=== PATIENT | female | born 1935 | race Caucasian/White ===

== ENCOUNTER → 2016-05-27 | Day surgery (SDC) | payer BC ==
[2016-05-14 15:28] VITALS: Ht 154.9 cm; Wt 79.5 kg
[~2016-05-27] VITALS: Ht 154.9 cm; Wt 79.5 kg
[~2016-05-27] MED LIST: 500ML BSS 0.3ML EPI 1:1000PF IRRIG ONE; ACETAMINOPHEN 325 MG TAB PO PRN; AMVISC PLUS 0.8ML SYRINGE INT OCU ONE; ATROPINE SULFATE 0.1 MG/ML 5ML SYR IV PRN; BSS FLUSH ONE; CLTP PO; ENDOCOAT 0.85ML SYRINGE INT OCU ONE; ESCI10TA17 PO; EpHEDrine SULFATE INJ 50 MG/ML AMP IV PRN; EpINEphrine INJ 1MG/ML AMP 1 MG/ML AMP ONE; LACTATED RINGER'S 1000ML 500 ML IV SCH; LIDOCAINE 4% OP SOLN DROP CHARGE ONE; LIDOCAINE 4% OP SOLN DROP CHARGE OPR SCH; LIDOCAINE HCL 1% MPF 2 ML VIAL ONE; MIDAZOLAM HCL 1 MG/ML 2ML VIAL ONE; MIX: 4ML BSS 1ML EPI 1:1000 PF TOP ONE; MOXIFLOXACIN OPH SOLN PER DROP CHARGE ONE; POVIDONE-IODINE OP SOLN 30 ML BTL ONE; PROPARACAINE 0.5% OP SOLN PER DROP CHARGE OPR SCH; TOBRAMYCIN/DEXAMETHASONE OPH OINT PER APPLN CHARGE ONE
--- NOTE | 2016-05-27 06:40 | History & Physical Bridge - SC ---
H&P Re-Evaluation Bridge Note: I have examined the patient, reviewed the History & Physical and in the interval since the performance of the History & Physical I have noted the following changes of clinical significance: No changes noted
[2016-05-27] MEDS: PHENYLEPHRINE HCL 2.5% OP SOLN PER DROP CHARGE OPR SCH ×3 (07:03→07:13)
[2016-05-27] MEDS: TROPICAMIDE 1% OP SOLN PER DROP CHARGE OPR SCH ×3 (07:04→07:14)
[2016-05-27] MEDS: CYCLOPENTOLATE HCL 1% OP SOLN PER DROP CHARGE OPR SCH ×3 (07:05→07:15)
[2016-05-27] MEDS: MOXIFLOXACIN OPH SOLN PER DROP CHARGE OPR SCH ×3 (07:06→07:16)
--- NOTE | 2016-05-27 08:32 | [facility] Post Operative Brief Note ---
Immediate Operative Summary Operative Date May 27, 2016. Pre-Operative Diagnosis Right Eye Cataract Post-Operative Diagnosis Same Procedure(s) Performed Right Cataract Phacoemulsification With Intraocular Lens Implant Surgeon Dr Yi Corn Detasseler Machine Operator Surgeon(s) None Estimated Blood Loss 0ml Findings right cataract Specimens None Complication(s) None Disposition
--- NOTE | 2016-05-27 08:33 | [facility] Operative Report ---
Operative Report Phaco with monofocal IOL DATE OF OPERATION: 05/27/16 PREOPERATIVE DIAGNOSIS: Senile nuclear cataract, right eye POSTOPERATIVE DIAGNOSIS: Senile nuclear cataract, right eye PROCEDURE PERFORMED: Phacoemulsification with intraocular lens implantation, right eye SURGEON: Dr. Lucas Yi ANESTHESIA: Topical with 1% intracameral lidocaine and monitored anesthesia care COMPLICATIONS: None DESCRIPTION OF PROCEDURE: After positively identifying the patient both verbally and by wristband in the preoperative area, the right eye was marked as the operative eye. The patient was then brought back to the operating room by the anesthesia and nursing staff where they were given a drop of Lidocaine and betadine into the operative eye. They were then sterilely prepped and draped in the standard fashion typical for ophthalmic surgery. Steri-strips were placed along the upper eyelids to keep the lashes back, and a lid speculum was placed into the operative eye. At this point, a documented time out was performed with members of the ophthalmology, nursing, and anesthesia staffs all agreeing upon the correct patient, correct location for surgery, correct procedure, and correct type and power of intraocular lens to be implanted. The microscope was then swung into position. First, a paracentesis wound was made using a sideport blade. Then, in sequence, 1% preservative-free lidocaine followed by Endocoat viscoelastic was injected into the anterior chamber. Next , the main incision was made with a keratome blade in triplanar fashion. A sharp cystotome was introduced into the eye and used to create a tear in the anterior capsule, which was directed into a continuous curvilinear capsulorrhexis using Utrata forceps. Hydrodissection was then performed with BSS on a flat-tip cannula. Next, the phacoemulsification handpiece was introduced into the eye and used to remove the nucleus in a iokrwm-ryh-kbuameo fashion. This was done without complication and then the irrigation-aspiration handpiece was introduced into the eye and used to remove all remaining cortical and epinuclear material. Amvisc was then injected into the anterior chamber as well as into the capsular bag and using the lens injector system, an MX60 20.5 D lens, serial number [id number], and expiration date 12/2018 was injected into the capsular bag and rotated into the correct position. Next, the irrigation- aspiration handpiece was used to remove all remaining Amvisc. BSS was used to hydrate the main wound, and then BSS was injected into the paracentesis site to reach physiologic pressure and then the main wound was checked and found to be watertight. The patient was given drops of Vigamox and Tobradex ointment into the operative eye, and then the surrounding area was cleaned and dried. A clear plastic shield was placed over the eye and the patient was then sat up and taken from the operating room by the anesthesia staff having tolerated the procedure well and suffering no complications. DISPOSITION: The patient was returned to the recovery room in stable condition. I attest to the content of the Intraoperative Record and any orders documented therein. Any exceptions are noted below.
--- NOTE | 2016-05-27 08:34 | Discharge Instructions-SurgCtr ---
Discharge Instructions Visit Reason for Visit: Cataract Right Eye Discharge Discharge Diagnosis / Problem: right cataract Discharge Goals Goal(s): Decrease discomfort, Improve function Activity Recommendations Activity Limitations: as noted below Anesthesia . Post Anesthesia Instructions: If you have had General Anesthesia or IV Sedation: * Do not drive today. * Resume driving when surgeon permits. * Do not make important decisions or sign legal documents today. * Call surgeon for: 1. Temperature elevations greater than 101 degrees F. 2. Uncontrollable pain. 3. Excessive bleeding. 4. Persistent nausea and vomiting. 5. Medication intolerance (nausea, vomiting or rash). * For nausea and vomiting use only clear liquids such as: tea, soda, bouillon until nausea subsides, then gradually increase diet as tolerated. * If you have any concerns or questions, call your surgeon's office. If physician is unavailable and it is an emergency, call 911 or go to the nearest emergency room. . Instructions / Follow-Up Instructions / Follow-Up ACTIVITY RECOMMENDATIONS: * Light activities. * You may walk outside, read, watch television. * You may notice redness on the white part of the eye and some blurry vision - this is normal. MEDICATIONS: Resume previous medications unless instructed otherwise by your surgeon. Start all eye drops at 10:30 am today: * Eye drops (today): Prednisone - one drop in operative eye every 2 hours while awake Ofloxacin - one drop in operative eye every 2 hours while awake SPECIAL CARE INSTRUCTIONS: * Tape plastic shield over eye to sleep at night. Call your doctor at with any concerns or problems. FOLLOW UP VISIT: Follow-up with Dr Yi at [facility] as scheduled. Diet Recommendations Home Diet: no limitations Procedures Procedures Performed: Right Cataract Phacoemulsification With Intraocular Lens Implant Pending Studies Studies pending at discharge: no Medical Emergencies . Who to Call and When: Medical Emergencies: If at any time you feel your situation is an emergency, please call 911 immediately. . Non-Emergent Contact Non-Emergency issues call your: Surgeon . . "Provider Documentation" section prepared by Lucas Yi.
--- NOTE | 2016-05-27 08:40 | Anesthesia Progress Nt - [facility] ---
Anesthesia Post Op Note Date & Time May 27, 2016 at 08:39 Vital Signs Pain Intensity: 0 Vital Signs Past 12 Hours Date Time Temp Pulse Resp B/P Pulse Ox O2 Delivery O2 Flow Rate FiO2 05/27/16 08:35 36.9 60 16 167/84 98 Room Air 05/27/16 06:59 36.5 74 16 133/84 94 Room Air Notes Mental Status: alert / awake / arousable, participated in evaluation Pt Amnestic to Procedure: Yes Nausea / Vomiting: adequately controlled Pain: adequately controlled Airway Patency, RR, SpO2: stable & adequate BP & HR: stable & adequate Hydration State: stable & adequate Anesthetic Complications: no major complications apparent
[2016-05-27 08:49] VITALS: BP 152/80; PULSE 61; O2SAT 97
== END | disposition home or self-care (01) ==
LOC: X.SURG 06:20
PROVIDERS: ATTEND Ophthalmology
DX: H25.11 Age-related nuclear cataract, right eye (principal); Z98.42 Cataract extraction status, left eye; H04.129 Dry eye syndrome of unspecified lacrimal gland; H01.029 Squamous blepharitis unspecified eye, unspecified eyelid; E78.5 Hyperlipidemia, unspecified; E78.00 Pure hypercholesterolemia, unspecified; Z98.890 Other specified postprocedural states; Z90.710 Acquired absence of both cervix and uterus

== ENCOUNTER → 2016-09-08 | Outpatient (CLI) | payer BC ==
[~2016-09-08] MED LIST changes: -500ML BSS 0.3ML EPI 1:1000PF IRRIG ONE; -ACETAMINOPHEN 325 MG TAB PO PRN; -AMVISC PLUS 0.8ML SYRINGE INT OCU ONE; -ATROPINE SULFATE 0.1 MG/ML 5ML SYR IV PRN; -BSS FLUSH ONE; -ENDOCOAT 0.85ML SYRINGE INT OCU ONE; -EpHEDrine SULFATE INJ 50 MG/ML AMP IV PRN; -EpINEphrine INJ 1MG/ML AMP 1 MG/ML AMP ONE; -LACTATED RINGER'S 1000ML 500 ML IV SCH; -LIDOCAINE 4% OP SOLN DROP CHARGE ONE; -LIDOCAINE 4% OP SOLN DROP CHARGE OPR SCH; -LIDOCAINE HCL 1% MPF 2 ML VIAL ONE; -MIDAZOLAM HCL 1 MG/ML 2ML VIAL ONE; -MIX: 4ML BSS 1ML EPI 1:1000 PF TOP ONE; -MOXIFLOXACIN OPH SOLN PER DROP CHARGE ONE; -POVIDONE-IODINE OP SOLN 30 ML BTL ONE; -PROPARACAINE 0.5% OP SOLN PER DROP CHARGE OPR SCH; -TOBRAMYCIN/DEXAMETHASONE OPH OINT PER APPLN CHARGE ONE
--- NOTE | 2016-09-08 16:30 | MAMMOGRAPHY REPORT ---
BILATERAL DIGITAL SCREENING MAMMOGRAM WITH CAD: 09/08/2016 CLINICAL HISTORY: Routine screening examination. TECHNIQUE: Bilateral CC and MLO views were obtained. Current study was also evaluated with a Comput er Aided Detection (CAD) system. COMPARISON: Comparison is made to exams dated: 08/15/2015 mammogram, 08/02/2014 mammogram, 06/02/2013 mammogram, 04/21/2012 mammogram, 04/02/2011 mammogram, and 03/18/2009 mammogram - [facility]. BREAST COMPOSITION: There are scattered areas of fibroglandular density in both breasts. FINDINGS: There are mild vascular calcifications and scattered benign coarse and punctate microcalc ifications in the breasts. No new suspicious mass, architectural distortion or cluster of microcalc ifications is seen. IMPRESSION: ACR BI-RADS CATEGORY 1: NEGATIVE There is no mammographic evidence of malignancy. A 1 year screening mammogram is recommended. The p atient will receive written notification of the results. Approximately 10% of breast cancers are not detected with mammography. A negative mammographic repor t should not delay biopsy if a clinically suggestive mass is present. Natasha Sanchez M.D. ay/:09/08/2016 16:03:33 Center Specialists: Kalie PAL(Michelle)(Susan), [facility] letter sent: Normal 1/2 BI-RADS Code: ACR BI-RADS Category 1: Negative
== END | disposition home or self-care (01) ==
LOC: C.MAMM 10:38
PROVIDERS: ATTEND Internal Medicine
DX: Z12.31 Encounter for screening mammogram for malignant neoplasm of breast (principal)

== ENCOUNTER → 2017-03-08 | Outpatient (CLI) | payer BC ==
[2017-03-08 12:17] LABS: BASO % 0.4 %; BASO ABS # 0.03 K/uL (0-0.2); COMPLETE YES; EOS % 0.7 %; HEMATOCRIT 43.5 % (37-47); IG% 0.1 %; LYMPH % 25.2 %; LYMPH ABS # 1.76 K/uL (1.2-3.4); MEAN CELL VOLUME 88.1 fL (80-100); MEAN CORPUSCULAR HEMOGLOBIN 29.1 pg (25-34); MEAN CORPUSCULAR HGB CONC 33.1 g/dl (32-36); MEAN PLATELET VOLUME 10.1 fL (7.4-10.4); NEUT % 65.6 %; PLATELET COUNT 201 K/uL (130-400); RED BLOOD COUNT 4.94 M/uL (4.2-5.4); WHITE BLOOD COUNT 6.99 K/uL (4.8-10.8)
[2017-03-08 12:42] LABS: ESTIMATED AVERAGE GLUCOSE 114 mg/dl; HA1C FLAG Normal (Normal)
[2017-03-08 13:28] LABS: ALT/SGPT 20 U/L (12-78); AST/SGOT 16 U/L (15-37); BLOOD UREA NITROGEN 18 mg/dl (7-18); BUN/CREATININE RATIO 18.5 (10-20); CALCIUM 8.4 mg/dl (8.5-10.1); CARBON DIOXIDE 29 mmol/L (21-32); CHLORIDE 106 mmol/L (98-107); CREATININE 0.98 mg/dl (0.60-1.20); GLUCOSE 76 mg/dl (70-99); SODIUM 142 mmol/L (136-145)
[2017-03-08 13:41] LABS: ALB/GLOB RATIO 0.8 (0.9-2); ALKALINE PHOSPHATASE 71 U/L (45-117); CHOLESTEROL 271 mg/dl (0-200); CHOLESTEROL/HDL RATIO 4.3; HDL CHOLESTEROL 63 mg/dl; LDL CHOLESTEROL CALCULATED 172 mg/dl; TRIGLYCERIDES 182 mg/dl (0-150); VERY LOW DENSITY LIPOPROT CALC 36 mg/dl
== END | disposition home or self-care (01) ==
LOC: C.LABBFT 09:43
PROVIDERS: ATTEND Internal Medicine
DX: R73.03 Prediabetes (principal); M81.0 Age-related osteoporosis without current pathological fracture; E78.00 Pure hypercholesterolemia, unspecified

== ENCOUNTER → 2017-03-09 | Outpatient (CLI) | payer BC ==
[2017-03-09 12:31] LABS: URINE APPEARANCE CLEAR (CLEAR); URINE BILIRUBIN NEG (NEG); URINE COLOR YELLOW; URINE NITRITE POS (NEG); URINE SPECIFIC GRAVITY 1.017 (1.000-1.030); UROBILINOGEN NEG (NEG); ZZUR CULT IF INDIC CLEAN CATCH YES
[2017-03-09 12:37] LABS: MANUAL MICROSCOPIC REQUIRED? NO; REVIEW REQ? NO
== END | disposition home or self-care (01) ==
LOC: C.LABBFT 10:48
PROVIDERS: ATTEND Internal Medicine
DX: R73.03 Prediabetes (principal); M81.0 Age-related osteoporosis without current pathological fracture; E78.00 Pure hypercholesterolemia, unspecified

== ENCOUNTER → 2017-06-25 | Outpatient (CLI) | payer BC | END | disposition home or self-care (01) | LOC: C.LABBFT 15:29 | PROVIDERS: ATTEND Physician Assistant Medical | DX: R39.9 Unspecified symptoms and signs involving the genitourinary system (principal) ==

== ENCOUNTER 2017-12-29 12:30 | Emergency (ER) | payer BC ==
[~2017-12-29] VITALS: Ht 156.2 cm; Wt 79.1 kg
[2017-12-29 12:48] VITALS: TEMP 36.6; Ht 156.2 cm; Wt 79.1 kg
[2017-12-29] MEDS ORDERED: LIDODERM (LIDOCAINE) PATCH 5% TD STA (13:05)
--- NOTE | 2017-12-29 13:49 | EMERGENCY ROOM VISIT NOTE ---
ED Visit Note First contact with patient: 12:53 CHIEF COMPLAINT: Low back pain, head injury, fall HISTORY OF PRESENT ILLNESS: This 82-year-old female patient presents to the emergency department, ambulatory, complaining of pain in the low back which began yesterday after suffering a mechanical fall. The patient states she tripped over her shoe, falling backwards and striking the back of her head, landing on her buttocks. The patient denies any loss of consciousness. She does report 2 episodes of emesis, one immediately after and 1 several hours later. The patient has been taking Tylenol for pain without significant relief. The pain has been constant and worse with movement. She does also report a headache and "my head feels funny". The patient notes the pain as sharp, radiating into her groin, and a 6/10. The patient denies any loss of control of their bowel or bladder functions. There has been no leg numbness or weakness, and no change in sensation. No nausea or vomiting or abdominal pain. No chest pain or shortness of breath. The patient has not had prior back injuries. No dysuria or increased urinary frequency. The patient is not on any blood thinners. REVIEW OF SYSTEMS: A 10 system review of systems was performed with positives and pertinent negatives listed in the history of present illness. All other systems were reviewed and are negative. ALLERGIES: Statins MEDICATIONS: Lexapro, stool softener PMH: Anxiety, depression SOCIAL HISTORY: Patient lives locally with family. She denies drug, alcohol , tobacco use. PHYSICAL EXAM: VITALS: Vitals are noted on the nurse's note and reviewed by myself. Vital signs stable. GENERAL: This is an 82-year-old white female, in no acute distress, nondiaphoretic, well-developed well-nourished. HEAD: Normocephalic, atraumatic. There is tenderness in the posterior aspect of the head. No obvious contusion or abrasion noted. EYES: Pupils are equal round and reactive to light and accommodation. EOMs are full and optic discs and fundi are normal. There is no swelling or discoloration of the tissue surrounding the eyes. EARS: External auditory canals clear without blood. Negative jain sign. NOSE: Patent without tenderness. No septal hematoma. FACE: No facial tenderness. SKIN: The skin was without rashes, erythema, edema, or bruising. Capillary refill less than 2 seconds. NECK: Supple without nuchal rigidity. Mild cervical spine tenderness. No paraspinous muscle tenderness. HEART: Regular rate and rhythm without murmurs gallops or rubs. LUNGS: Clear to auscultation bilaterally without wheezes, rales or rhonchi. ABDOMEN: Positive bowel sounds x 4. Normal tympanic percussion. Soft, nontender, without masses or organomegaly. Duarte sign negative. MUSCULOSKELETAL: No muscle atrophy, erythema, or edema noted of the back. There is no tenderness over the lumbar spinous processes. There is moderate tenderness over the paraspinous muscles bilaterally. There is no tenderness over the thoracic spine or paraspinous muscles. There are no muscle spasms present. The patient is slow to move around with maximum tenderness with sitting from a lying position. Negative bilateral straight leg raise test. NEURO: Patient was alert and oriented to person place and time. Normal sensation to light and sharp touch. Deep tendon reflexes 2+ in the lower extremities. Dorsalis pedis pulse 2+ bilaterally. Strength 5/5 and equal in the bilateral lower extremities. Normal Mini-Mental Status exam. RADIOLOGY: CT OF THE HEAD WITHOUT CONTRAST CLINICAL HISTORY: Headache. Fall. Vomiting. COMPARISON STUDY: MRI of the brain July 25, 2015. CT DOSE: 976.70 mGy.cm TECHNIQUE: Helical axial images of the head were obtained without IV contrast. Automated exposure control was utilized for the study. A dose lowering technique was utilized adhering to the principles of ALARA. FINDINGS: No acute intracranial hemorrhage, midline shift or mass effect is present. Ventricular system is stable. The basilar cisterns are patent. There are no extra-axial collections. Rain-white differentiation is preserved. There are no findings to suggest acute dural sinus thrombosis or acute territorial infarct. There is no calvarial fracture. Visualized portions of the sinuses and mastoid air cells are clear. IMPRESSION: 1. No acute intracranial findings. 2. No calvarial fracture. Electronically signed by: Tho Clifford M.D. 12/29/2017 1:51 PM Dictated Date/Time: 12/29/2017 1:48 PM CERVICAL SPINE W/O CLINICAL HISTORY: 82 years-old Female presenting with neck pain, fall. TECHNIQUE: Multidetector CT of the cervical spine was performed without the use of intravenous contrast. IV contrast: None. A dose lowering technique was used consistent with the principles of ALARA (as low as reasonably achievable). COMPARISON: None. CT DOSE (mGy.cm): The estimated cumulative dose is 976.70. FINDINGS: Residential Advisor topogram: Unremarkable. Straightening of normal cervical lordosis likely positional. Vertebral bodies maintain normal height and alignment otherwise. No scoliosis. Intervertebral disc height loss noted at several levels though most significantly at C5-6. Disc osteophyte complex most notable at C5-6 with mild posterior bony spurring resulting in mild osseous spinal canal narrowing. Bilateral osseous neural foraminal narrowing at C5-6. No significant facet arthropathy. No acute fracture or subluxation. Paraspinal musculature within normal limits. Remaining soft tissues demonstrate atherosclerosis. Lung apices clear. IMPRESSION: 1. No acute osseous injury of the cervical spine. 2. Degenerative changes focally at C5-6 with osseous neural foraminal narrowing. Electronically signed by: Norberto Tidwell M.D. 12/29/2017 1:58 PM Dictated Date/Time: 12/29/2017 1:54 PM L-SPINE MIN 4 VIEWS ROUTINE CLINICAL HISTORY: 82 years-old Female presenting with low back pain, fall. TECHNIQUE: Frontal, bilateral oblique, lateral, and coned in lateral views of lumbar spine were obtained. COMPARISON: CT chest from 2009. FINDINGS: Cholecystectomy clips noted. Moderate stool burden primarily in the right and transverse colon. Mottled lucencies in the left upper quadrant may either be colonic or gastric in origin. Atherosclerosis. Osteopenia suggested. Mild scoliotic curvature of the thoracolumbar spine. Vertebral body height loss evident at L1, which is worse anteriorly (approximately 25% height loss). No radiographic evidence of retropulsion of the posterior cortex of the L1 vertebral body. Endplate concavity is also evident in the lower thoracic spine likely indicating osteoporotic deformities. Remaining lumbar vertebral bodies preserved in height. Intervertebral disc height loss at L5-S1, where there is likely vacuum disc phenomenon. Mild osteophytosis noted at several levels. No radiographic evidence of osseous neural foraminal narrowing. No significant facet arthropathy. No pars defect. IMPRESSION: 1. 25% anterior vertebral body height loss of L1 consistent with mild compression deformity. Correlate for point tenderness as this represents an age-indeterminate compression fracture. This was not present on the prior CT from 2009. 2. Osteoporosis and osteopenia suspected. 3. Mild multilevel degenerative change. Electronically signed by: Norberto Tidwell M.D. 12/29/2017 2:04 PM Dictated Date/Time: 12/29/2017 2:00 PM EMERGENCY DEPARTMENT COURSE: The patient was seen and evaluated as above. Imaging performed and reviewed by myself and radiologist as above. The patient is not tender over the L1 vertebrae, however I discussed this finding on x-ray with the patient. I did recommend she follow-up with a local orthopedic spine surgeon for further evaluation, especially if she continues to experience significant discomfort in her low back. The patient was given strict return precautions. She was medicated here in the emergency department with a Lidoderm patch and did report improvement in her symptoms. She will be prescribed Lidoderm patches and Voltaren gel to be used at home for breakthrough pain. The patient verbalized agreement and understanding. She was encouraged to follow-up closely with her PCP. All questions answered patient satisfaction prior to discharge. Discharge instructions reviewed, patient was discharged home in good condition. I attest that I have personally reviewed the patient's current medication list. Patient was found to have normal blood pressure on screening and does not require follow-up. Etiologies such as lumbago, sciatica, cauda equina, epidural abscess, osteomyelitis, fracture, aortic disease, metastatic disease, infection, renal colic, gastrointestinal, closed head injury, concussion, intracranial hemorrhage , skull fracture, contusion, headache, infection, malignancy, and others. DIAGNOSIS: Fall, closed head injury, compression fracture of L1 The chart was completed utilizing [employer] Speech voice recognition software. Grammatical errors, random word insertions, pronoun errors, and incomplete sentences are an occasional consequence of this system due to software limitations, ambient noise, and hardware issues. Any formal questions or concerns about the content, text, or information contained within the body of this dictation should be directly addressed to the provider for clarification. Current/Historical Medications Scheduled Calcium/Vitamin D (Caltrate 600 Plus *), 1 TAB PO QAM Escitalopram (Lexapro), 10 MG PO QAM Scheduled PRN Diclofenac Sodium (Topical) (Voltaren 1% Top Gel), 1 DOSE TD QID PRN for Pain Lidocaine (Lidocaine), 1 PATCH TD QD PRN for Pain Allergies Coded Allergies: Statins (Verified Allergy, Unknown, LEG PAINS, 05/27/16) Vital Signs Date Time Temp Pulse Resp B/P (MAP) Pulse Ox O2 Delivery O2 Flow Rate FiO2 8/8/18 14:21 66 16 133/72 96 Room Air 12/29/17 12:48 36.6 79 20 112/68 95 Room Air Medications Administered Medications (Trade) Dose Ordered Sig/Fozia Route Start Time Stop Time Status Last Admin Dose Admin Lidocaine (Lidoderm Patch 5%) 1 patch NOW STAT TD 12/29/17 13:05 12/29/17 13:07 DC 12/29/17 13:32 1 PATCH Departure Information Impression Primary Impression: Fall Additional Impressions: Closed head injury Compression fracture of L1 lumbar vertebra Dispostion Home / Self-Care Condition GOOD Prescriptions Diclofenac Sodium (Topical) (VOLTAREN 1% TOP GEL) 1 % Gel 1 DOSE TD QID Y for Pain, #1 TUBE Prov: Ella Mariscal PA-C 12/29/17 Lidocaine (LIDOCAINE) 5 % Pad 1 PATCH TD QD Y for Pain, #30 PATCH Remove patch after 12 hours. New patch may be applied 12 hours later. No more than 1 patch in 24 hours. Prov: Ella Mariscal PA-C 12/29/17 Referrals Amadeo Tejada M.D. (PCP) Davis Pappas, DO Patient Instructions ED Head Injury Closed, ED Low Back Pain Injury, ED Mechanical Fall, [facility] Additional Instructions You have been treated in the Emergency Department for a Closed Head Injury and low back pain. X-ray of the low back did show a compression fracture at L1. This is thought to be more chronic, as you are not experiencing tenderness in that area. Please follow-up with your primary care provider and consider orthopedics referral if no improvement in symptoms. CT Scan of your head/brain demonstrated no acute bleeding or other abnormalities. This does not completely rule out the risk for future damage to the brain. You were given a prescription for Lidoderm patches. Remove patch after 12 hours. New patch may be applied 12 hours later. No more than 1 patch in 24 hours. You were also given a prescription for Voltaren gel. Please do not apply the gel below the patch, however you may use it in the surrounding areas. For pain control, you can use the following xbjc-jki-[id number] medicines (if >12 yo): Acetaminophen(Tylenol) may be used for fever or pain. Use 1000mg every six hours as needed. Avoid using more than 3000mg in a 24 hour period. You should relax in a quiet, dark place for the rest of the day. Avoid any possible triggers including: cigarette smoke, caffeine, nicotine, chocolate, wine, beer, loud noises or music, or bright lights. You should schedule a follow-up appointment in 2-3 days with your Primary Care Provider for further evaluation and treatment of your Headache. Return to the Emergency Department if your current symptoms worsen despite treatment course outlined above, or if you develop any of the following symptoms : intractable pain despite aforementioned treatment course, visual disturbances , loss of vision, unilateral weakness or facial drooping, slurring of speech, loss of coordination, or loss of consciousness. Problem Qualifiers Primary Impression: Fall Encounter type: initial encounter Qualified Codes: W19.XXXA - Unspecified fall, initial encounter Additional Impressions: Closed head injury Encounter type: initial encounter Qualified Codes: S09.90XA - Unspecified injury of head, initial encounter Compression fracture of L1 lumbar vertebra Encounter type: initial encounter Fracture type: closed Qualified Codes: S32.010A - Wedge compression fracture of first lumbar vertebra, initial encounter for closed fracture
--- NOTE | 2017-12-29 13:53 | DIAGNOSTIC IMAGING REPORT ---
CT OF THE HEAD WITHOUT CONTRAST CLINICAL HISTORY: Headache. Fall. Vomiting. COMPARISON STUDY: MRI of the brain July 25, 2015. CT DOSE: 976.70 mGy.cm TECHNIQUE: Helical axial images of the head were obtained without IV contrast. Automated exposure control was utilized for the study. A dose lowering technique was utilized adhering to the principles of ALARA. FINDINGS: No acute intracranial hemorrhage, midline shift or mass effect is present. Ventricular system is stable. The basilar cisterns are patent. There are no extra-axial collections. Rain-white differentiation is preserved. There are no findings to suggest acute dural sinus thrombosis or acute territorial infarct. There is no calvarial fracture. Visualized portions of the sinuses and mastoid air cells are clear. IMPRESSION: 1. No acute intracranial findings. 2. No calvarial fracture. Electronically signed by: Tho Clifford M.D. 12/29/2017 1:51 PM Dictated Date/Time: 12/29/2017 1:48 PM
--- NOTE | 2017-12-29 13:59 | DIAGNOSTIC IMAGING REPORT ---
CERVICAL SPINE W/O CLINICAL HISTORY: 82 years-old Female presenting with neck pain, fall. TECHNIQUE: Multidetector CT of the cervical spine was performed without the use of intravenous contrast. IV contrast: None. A dose lowering technique was used consistent with the principles of ALARA (as low as reasonably achievable). COMPARISON: None. CT DOSE (mGy.cm): The estimated cumulative dose is 976.70. FINDINGS: Meal Packer topogram: Unremarkable. Straightening of normal cervical lordosis likely positional. Vertebral bodies maintain normal height and alignment otherwise. No scoliosis. Intervertebral disc height loss noted at several levels though most significantly at C5-6. Disc osteophyte complex most notable at C5-6 with mild posterior bony spurring resulting in mild osseous spinal canal narrowing. Bilateral osseous neural foraminal narrowing at C5-6. No significant facet arthropathy. No acute fracture or subluxation. Paraspinal musculature within normal limits. Remaining soft tissues demonstrate atherosclerosis. Lung apices clear. IMPRESSION: 1. No acute osseous injury of the cervical spine. 2. Degenerative changes focally at C5-6 with osseous neural foraminal narrowing. Electronically signed by: Norberto Tidwell M.D. 12/29/2017 1:58 PM Dictated Date/Time: 12/29/2017 1:54 PM
--- NOTE | 2017-12-29 14:05 | DIAGNOSTIC IMAGING REPORT ---
L-SPINE MIN 4 VIEWS ROUTINE CLINICAL HISTORY: 82 years-old Female presenting with low back pain, fall. TECHNIQUE: Frontal, bilateral oblique, lateral, and coned in lateral views of lumbar spine were obtained. COMPARISON: CT chest from 2010. FINDINGS: Cholecystectomy clips noted. Moderate stool burden primarily in the right and transverse colon. Mottled lucencies in the left upper quadrant may either be colonic or gastric in origin. Atherosclerosis. Osteopenia suggested. Mild scoliotic curvature of the thoracolumbar spine. Vertebral body height loss evident at L1, which is worse anteriorly (approximately 25% height loss). No radiographic evidence of retropulsion of the posterior cortex of the L1 vertebral body. Endplate concavity is also evident in the lower thoracic spine likely indicating osteoporotic deformities. Remaining lumbar vertebral bodies preserved in height. Intervertebral disc height loss at L5-S1, where there is likely vacuum disc phenomenon. Mild osteophytosis noted at several levels. No radiographic evidence of osseous neural foraminal narrowing. No significant facet arthropathy. No pars defect. IMPRESSION: 1. 25% anterior vertebral body height loss of L1 consistent with mild compression deformity. Correlate for point tenderness as this represents an age-indeterminate compression fracture. This was not present on the prior CT from 2009. 2. Osteoporosis and osteopenia suspected. 3. Mild multilevel degenerative change. Electronically signed by: Norberto Tidwell M.D. 12/29/2017 2:04 PM Dictated Date/Time: 12/29/2017 2:00 PM
[2017-12-29 14:21] VITALS: BP 133/72; PULSE 66; O2SAT 96
[2017-12-29] MEDS ORDERED: LIDO1PAD2 TD (14:33)
[2017-12-29] MEDS ORDERED: DICL1GEL12 TD (14:33)
--- NOTE | 2017-12-29 17:46 | EMERGENCY ROOM VISIT NOTE ---
ED Visit Note First contact with patient: 12:53 I have personally evaluated this patient examined her and reviewed the pertinent labs and data. I have discussed the case with Ella Mariscal, the physician chemical laboratory assistant and agree with the plan. Please refer to the PA note. This patient suffered a mechanical fall yesterday she hit her head and also has low back pain into her sacrum. On my exam, she has no neurologic deficits and her abdomen is benign. CAT scan of her head and neck were unremarkable. Lumbar films show an age-indeterminate L1 fracture. she seems to have no significant tenderness in this area. She will be sent home with pain medications and follow-up with her regular doctor.
== END 2017-12-29 14:48 | disposition home or self-care (01) ==
LOC: C.EDB 12:32 → C.EDD 14:48
DX: S09.8XXA Other specified injuries of head, initial encounter (principal); S32.010A Wedge compression fracture of first lumbar vertebra, initial encounter for closed fracture; W18.09XA Striking against other object with subsequent fall, initial encounter; F32.9 Major depressive disorder, single episode, unspecified; F41.9 Anxiety disorder, unspecified; Z79.899 Other long term (current) drug therapy

== ENCOUNTER 2017-12-31 23:56 | Emergency (ER) | payer BC ==
[~2017-12-31] VITALS: Ht 154.9 cm; Wt 79.5 kg
[~2017-12-31 23:56] MED LIST changes: +DICL1GEL12 TD; +LIDO1PAD2 TD
[2018-01-01] VITALS: TEMP 36.7; Ht 154.9 cm; Wt 79.5 kg
--- NOTE | 2018-01-01 00:13 | EMERGENCY ROOM VISIT NOTE ---
History Report prepared by Gretel: Demario Diane Under the Supervision of: Dr. Jose Raul Pickens M.D. First contact with patient: 00:04 Chief Complaint: CONSTIPATION Stated Complaint: CANT GO TO THE BATHROOM History of Present Illness The patient is a 82 year old female who presents to the Emergency Room with complaints of constant constipation that began 5 days ago after a fall. Patient states after the fall she took 2 extra strength Tylenol for her lower back pain. She states this might be the reason for her symptoms as she has a history of constipation with pain medication. Patient states she has tried "2 enemas, stool softeners, Miralax, and 4 laxatives" without relief of her symptoms. She adds she has abdominal pain due to the constipation. Patient denies leg weakness , urinary symptoms, watery diarrhea, abdominal distension, nausea, vomiting, and history of bowel obstructions. Source of History: patient Onset: 5 days ago Position: abdomen Timing: constant Modifying Factors (Relieving): other (None) Associated Symptoms: + abdominal pain, No nausea, No vomiting, No diarrhea, No urinary symptoms, No weakness Review of Systems See HPI for pertinent positives & negatives. A total of 10 systems reviewed and were otherwise negative. Past Medical & Surgical Surgical Problems: (1) History of cholecystectomy Family History FHx: cancer FHx: gallbladder disease Social History Smoking Status: Never Smoker Alcohol Use: none Drug Use: none Marital Status: Housing Status: lives with significant other Occupation Status: retired Current/Historical Medications Scheduled Calcium Carbonate-Cholecalcife (Calcium 600 + D 600-200 mg-Unit), 1 TAB PO QAM Escitalopram (Lexapro), 10 MG PO QAM Peg [id number] Bicarb-Sod Ch (Golytely), 1 BTL PO DIRECTED Scheduled PRN Diclofenac Sodium (Topical) (Voltaren 1% Top Gel), 1 DOSE TD QID PRN for Pain Docusate Sodium (Stool Softener), 200 MG PO DAILY PRN for Constipation Lidocaine (Lidocaine), 1 PATCH TD QD PRN for Pain Polyethylene Glycol 3350 (Miralax), 17 GM PO DAILY PRN for Constipation Sodium Phosphates (Enema Disposable), 1 EA AR DAILY PRN for Constipation Allergies Coded Allergies: Statins (Verified Allergy, Unknown, LEG PAINS, 01/01/18) Physical Exam Vital Signs Date Time Temp Pulse Resp B/P (MAP) Pulse Ox O2 Delivery O2 Flow Rate FiO2 01/01/18 02:25 71 18 168/100 100 01/01/18 00:00 36.7 90 18 135/79 96 Room Air Physical Exam GENERAL: Patient is well appearing and in mild distress. EYES: No scleral icterus, unremarkable pupils. ENT: Mucous membranes moist, no nasal congestion. NECK: No masses appreciated, no meningismus, trachea is midline. RESPIRATORY: No dyspnea. Clear to auscultation and equal bilaterally. No wheeze , no rhonchi. CARDIOVASCULAR: Regular rate and rhythm. No murmurs, rubs, gallops appreciated. GASTROINTESTINAL: Abdomen soft, nontender, no peritonitis. Bowel sounds hyperactive. No masses appreciated. BACK: No midline tenderness, no CVA tenderness EXTREMITIES: Normal motion all extremities, no cyanosis, no edema. NEUROLOGIC: Alert and oriented, no acute motor or sensory deficits, no focal weakness, cranial nerves grossly intact. SKIN: No rash, no jaundice, no diaphoresis. Medical Decision & Procedures ER Provider Diagnostic Interpretation: Radiology results per my review and interpretation: KUB X-RAY: X-ray shows nonspecific bowel gas throughout entire abdomen, no evidence of obstruction, and modest amount of bowel in ascending and transverse colon. Medications Administered Medications (Trade) Dose Ordered Sig/Fozia Route Start Time Stop Time Status Last Admin Dose Admin Miscellaneous (Soap Suds Enema) 1 ea NOW STAT AR 01/01/18 01:09 01/01/18 01:10 DC 01/01/18 01:33 1 ED Course 0004: The patient was evaluated in room B8. A complete history and physical exam was performed. 0113: I reevaluated the patient. She is comfortable with having an enema. 0212: Reevaluated the patient. She states she is feeling better and would like to go home after having a modest bowel movement. Patient will take half a mag citrate now and other half later. She was informed to start GoLYTELY if no improvement of her symptoms. Discussed results and discharge instructions. She verbalized understanding and agreement. The patient is ready for discharge. Medical Decision Differential: Functional, Impaction, Obstruction, Volvulus, Ischemic Bowel, Infectious, Neurologic, Metabolic, amongst other pathologies entertained. Pleasant 82 yr old female with 4 days constipation. Notes she thinks its from using Tylenol. Did recently injury back though that is doing better, no other neuro deficits and she does not appear to have cauda equina. She has moderate stool burden on KUB. Enema with some relief and output. Will give Mag Citrate and if no improvement she can fill GoLytely. Reviewed symptoms requiring RTED. She has no abdominal pain nor other concerning symptoms. Medication Reconcilliation Current Medication List: was personally reviewed by me Blood Pressure Screening Patient's blood pressure: Elevated blood pressure Blood pressure disposition: Elevated BP felt to be situational Impression Primary Impression: Constipation Scribe Attestation The scribe's documentation has been prepared under my direction and personally reviewed by me in its entirety. I confirm that the note above accurately reflects all work, treatment, procedures, and medical decision making performed by me. Departure Information Dispostion Home / Self-Care Prescriptions Peg [id number] Bicarb-Sod Ch (GOLYTELY) 1 Jeanie Jeanie 1 BTL PO DIRECTED, #1 BTL Prov: Jose Raul Pickens M.D. 01/01/18 Referrals Amadeo Tejada M.D. (PCP) Patient Instructions ED Constipation, My [facility] [address]
[2018-01-01] MEDS ORDERED: SOAP SUDS ENEMA PR STA (01:09)
[2018-01-01] MEDS ORDERED: CALC-452 PO (01:10)
[2018-01-01] MEDS ORDERED: POLY335019 PO (01:12)
[2018-01-01] MEDS ORDERED: DOCU100T7 PO (01:12)
[2018-01-01] MEDS ORDERED: SODIENE12 PR (01:12)
[2018-01-01] MEDS ORDERED: PEGSOL8 PO (02:13)
[2018-01-01] MEDS ORDERED: MAGNESIUM CITRATE 296 ML/BTL PO ONE (02:15)
[2018-01-01 02:25] VITALS: BP 168/100; PULSE 71; O2SAT 100
--- NOTE | 2018-01-01 09:18 | DIAGNOSTIC IMAGING REPORT ---
KUB CLINICAL HISTORY: Constipation. FINDINGS: An AP supine abdominal radiograph is correlated with lumbar spine radiographs dated 01/08/2018. There is a nonobstructed abdominal bowel gas pattern noting moderate colonic fecal retention. No evidence of intraperitoneal free air is seen on this supine image. Cholecystectomy clips are identified in the right upper quadrant. Numerous phleboliths are present in the pelvis. The skeletal structures are osteopenic. Lumbosacral spondylosis and mild scoliosis are observed. The bony pelvis appears intact. IMPRESSION: Moderate colonic fecal retention. Electronically signed by: Ronny Shirley M.D. 01/01/2018 9:17 AM Dictated Date/Time: 01/01/2018 9:16 AM
== END 2018-01-01 02:20 | disposition home or self-care (01) ==
LOC: C.EDB 23:57
DX: K59.00 Constipation, unspecified (principal); Z79.899 Other long term (current) drug therapy; Z88.8 Allergy status to other drugs, medicaments and biological substances

== ENCOUNTER → 2018-01-05 | Outpatient (CLI) | payer BC ==
[~2018-01-05] MED LIST changes: +CALC-452 PO; -CLTP PO; +DOCU100T7 PO; +PEGSOL8 PO; +POLY335019 PO; +SODIENE12 PR
[2018-01-05 17:46] LABS: BASO % 0.5 %; BASO ABS # 0.05 K/uL (0-0.2); EOS % 1.4 %; EOS ABS # 0.14 K/uL (0-0.5); HEMATOCRIT 42.4 % (37-47); HEMOGLOBIN 13.7 g/dL (12.0-16.0); IG# 0.02 K/uL (0.00-0.02); LYMPH % 16.3 %; LYMPH ABS # 1.69 K/uL (1.2-3.4); MEAN CELL VOLUME 88.7 fL (80-100); MEAN CORPUSCULAR HEMOGLOBIN 28.7 pg (25-34); MEAN CORPUSCULAR HGB CONC 32.3 g/dl (32-36); MEAN PLATELET VOLUME 9.9 fL (7.4-10.4); MONO % 8.9 %; MONO ABS # 0.92 K/uL (0.11-0.59); NEUT % 72.7 %; NEUT ABS # 7.55 K/uL (1.4-6.5); PLATELET COUNT 203 K/uL (130-400); RED CELL DISTRIBUTION WIDTH CV 13.5 % (11.5-14.5); RED CELL DISTRIBUTION WIDTH SD 44.1 fL (36.4-46.3); WHITE BLOOD COUNT 10.37 K/uL (4.8-10.8)
[2018-01-05 18:17] LABS: BLOOD UREA NITROGEN 21 mg/dl (7-18); CALCIUM 8.9 mg/dl (8.5-10.1); CARBON DIOXIDE 29 mmol/L (21-32); CREATININE 1.05 mg/dl (0.60-1.20); GLUCOSE 95 mg/dl (70-99); POTASSIUM 4.2 mmol/L (3.5-5.1); SODIUM 137 mmol/L (136-145)
== END | disposition home or self-care (01) ==
LOC: C.LAB1850 16:42
PROVIDERS: ATTEND Nurse Practitioner Adult Health
DX: K59.00 Constipation, unspecified (principal)

== ENCOUNTER → 2018-01-06 | Outpatient (CLI) | payer BC | END | disposition home or self-care (01) | LOC: C.LABBFT 09:55 | PROVIDERS: ATTEND Nurse Practitioner Adult Health | DX: R10.9 Unspecified abdominal pain (principal) ==

== ENCOUNTER 2025-04-07 09:43 | Inpatient (IN) ==
--- NOTE | 2025-04-07 09:59 | Emergency Department Note ---
Impression & Plan Atrial fibrillation with RVR, Acute renal failure, Atrial fibrillation, new onset, Elevated troponin ED Provider Note NAME: CHARLES HARTMAN AGE: 89 SEX: F : 1935 ARRIVES VIA: Walk-In INFORMANT: Patient ED PROVIDER(S): Jakub Reyes MD CHIEF COMPLAINT: Dizziness, fall yesterday PLAN: Disposition: Admit MEDICAL DECISION MAKING: The patient is a pleasant 89-year-old woman with a past medical history of CKD, who presents to the emergency department via walk-in accompanied by her for evaluation of ongoing dizziness since yesterday when she had a fall due to the dizziness and hit the back of her head. She denies loss of consciousness. She was able to get up with her 's assistance. Despite ongoing dizziness the patient has been able to ambulate without pain in her hips or back. She denies any neck pain. She denies anticoagulation use. She is on daily low-dose aspirin. She reports recently being treated for bronchitis through her primary care provider with prednisone as well as a medication for cough. On my evaluation the patient is in no acute distress, afebrile with heart rate in the 140s-150s and atrial fibrillation with RVR and blood pressure 90s- 100s/60s. She appears clinically dry. 1 cm hematoma of the right posterior parietal scalp without bony crepitus. CTL-spine with no midline tenderness to palpation or step-offs. No distracting injury. Pelvis is stable and hips with full range of motion bilaterally. EKG demonstrates atrial fibrillation with RVR without overt acute ischemia. Chest x-ray negative for acute cardiopulmonary process per my preliminary independent interpretation. WBC 11K with neutrophilia but no left shift, nonspecific. H/H and platelets within normal limits. Chemistry without metabolic acidosis. Creatinine 1.2, with BUN/creatinine 23 increased from patient's baseline and consistent with patient's clinically dry appearance. Electrolytes otherwise unremarkable. Initial high-sensitivity troponin 405, nonspecific with repeat 420, mildly increased but in the setting of suspected prolonged RVR. Patient denies chest pain. Lipase is normal. TSH within normal limits. UA eventually obtained and demonstrates bacteria but negative nitrites and epithelial cells present. CT of the head and cervical spine negative for acute abnormalities. The patient was treated with IV fluid hydration and 5 mg of IV Lopressor x 3 with improved rate control though still with RVR in the 110s. Patient agrees with plan for admission for further management. Case was discussed with CHENG Soto hospitalist, who will evaluate the patient for admission. Further management per admitting team including initiation of anticoagulation given [id number]. Triage Nursing notes reviewed and agree them. Prior/external medical records reviewed Vital Signs: reviewed Differential diagnosis: Benign positional vertigo, dehydration, hypovolemia, anemia, tumor, infection, hypoglycemia, electrolyte abnormalities, cardiac sources, intracerebral event, toxicologic, neurologic, as well as other pathologies. ER treatment provided: See below. Diagnostics interpreted by me: ECG: Atrial fibrillation with RVR, 156 bpm, nonspecific ST and T wave abnormality, no overt ST elevation or depression, QTc 448, QRS 66. Cardiac Monitoring: An order for continuous cardiac monitoring was placed and demonstrated atrial fibrillation with RVR, 156 bpm, no ectopy. Laboratory studies: See below Imaging studies: See below Consultation(s): Case was discussed with CHENG Soto hospitalist, who will evaluate the patient for admission. HPI: Per MDM. ROS: See above HPI for pertinent positives & negatives. A total of 10 systems reviewed and were otherwise negative. VITALS:See Below PHYSICAL EXAMINATION: Primary Survey Airway: Intact Breathing: Normal, breath sounds equal bilaterally Circulation: Skin warm, distal pulses 2+, capillary refill less than 2 seconds Disability Pupils: Equal and reactive to light. GCS: 15, E = 5 V=5 M= 5 Motor Function: Moves all extremities. Sensory: No deficits Secondary Survey GEN: Well developed and well-nourished HEAD: Normocephalic, 1 cm hematoma of the right posterior parietal scalp without bony crepitus. EYES: Pupils round reactive to light, conjunctiva clear, extraocular movements intact, no raccoons eyes ENT: No fluid in external acoustic canals, no hemotympanum, no jain's sign, nares patent, no septal hematoma, oropharynx clear NECK: No JVD, midline trachea, No midline tenderness to palpation or step-offs. HEART: Tachycardic rate and irregular rhythm LUNGS: Clear to auscultation bilaterally. CHEST: Chest wall non-tender, no bruising/deformity ABD: No Gotti-Stuart's or Alexei's sign, soft, non-tender, no rebound or guarding, E-FAST scan: negative. PELVIS: Stable to rock BACK: No step offs or deformities, T-L spine non tender EXT: 2+ global pulses, moving all extremities well, +5/5 muscle strength globally NEURO: Normal sensorium. Cranial nerves II-XII grossly intact. 5/5 strength and SILT x 4 extremities. ED COURSE: Critical Care: I have personally spent greater than 35 minutes of critical care time in the direct management of this patient. This includes bedside care, interpretation of diagnostic studies, and testing, discussion with consultants, patient, and family members, and other required patient management activities. This 35 minutes is in excess of all separately billable procedures. Jakub Reyes MD Past Med/Surg History Problem List (Updated 04/08/25 @ 00:22 by Jakub Reyes MD) Elevated troponin (Acute) Atrial fibrillation, new onset (Acute) NSTEMI (non-ST elevated myocardial infarction) Acute renal failure (Acute) Atrial fibrillation with RVR (Acute) History of infiltrating ductal carcinoma of breast Anxiety (Chronic) Vitamin D deficiency (Acute) Tremor (Acute) Solitary pulmonary nodule (Acute) Prediabetes (Acute) Hypercholesterolemia (Acute) Depression (Acute) Allergic rhinitis (Acute) Statin myopathy Chronic kidney disease, stage 3 Medical History Community acquired pneumonia Compression fracture of L1 lumbar vertebra 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 Daughter No problems noted. Son No problems noted. Son No problems noted. Son No problems noted. Son No problems noted. Denies family history of Ovarian cancer Prostate cancer Coronary heart disease Colorectal cancer Social History Smoking Status: Never smoker Second Hand Exposure: No; Do You Dip or Chew Tobacco: No; Hx Alcohol Use: No Hx Substance Use: No Preferred Language: Hungarian Communication Ability: Effective Visual Impairment: No Limitations Hearing Ability: Normal [employer] Specialist Required: No Beliefs That Will Affect Care: None marital status: Current Living Situation: Spouse current occupational status: retired Feels Safe at Home: Yes Safety Concerns: Feels Safe At This Time Childhood Exposure to Second-Hand Smoke: No Diet: regular caffeine: Yes during the past year weight has: remained stable Dental Care, Regularly: Yes Physical Activity Frequency: Does not Exercise Seatbelt Use: always Sunscreen Use: Yes (sometimes ) Assistive Devices: None Allergies Allergies Allergy/AdvReac Type Severity Reaction Status Date / Time red yeast rice Allergy Unknown Unknown Verified 04/07/25 15:05 Tksosmq-YIH-VqT Reductase Allergy Unknown LEG PAINS Verified 11/01/23 09:27 Inhibitor [Vesfcxh-Oxe-Pza Reductase Inhibitor] atorvastatin AdvReac Unknown Verified 04/07/25 15:05 simvastatin [From Zocor] AdvReac Unknown Verified 04/07/25 15:05 Home Meds Home Medications Medication Instructions Recorded Confirmed calcium carbonate (Calcium 500) 500 mg PO DAILY 04/11/19 04/07/25 cholecalciferol (vitamin D3) 25 1,000 units PO DAILY 04/11/19 04/07/25 mcg (1,000 unit) capsule vitamins A,C,Y-kjsn-olqylv 4,296 1 cap PO DAILY 11/01/23 04/07/25 mcg-226 mg-90 mg capsule (PreserVision AREDS) mecobalamin (vitamin B12) 1 tab PO DAILY 01/26/25 04/07/25 Previous Rx's Medication Instructions Recorded aspirin 81 mg tablet,delayed 81 mg PO DAILY #30 tabs 05/07/21 release escitalopram oxalate 10 mg tablet 10 mg PO DAILY #90 tabs 02/19/25 Results & Data (ED) Vital Signs Vital Signs - 24 hr 04/07/25 09:43 04/07/25 09:53 04/07/25 10:03 Temperature 36.6 C Temperature Source Skin Pulse Rate 104 H 146 H Pulse Rate [Apical] 147 H Pulse Rate from SpO2 Sensor Pulse Rhythm Regular Pulse Rhythm [Apical] Regular Pulse Strength [Apical] Normal Respiratory Rate 16 27 H 23 Respiratory Effort / Characteristics Non-Labored Spontaneous Non-Labored Spontaneous Respiratory Depth Normal Normal Respiratory Pattern Regular Regular Blood Pressure 114/42 L Blood Pressure [Right Arm] 90/69 L Blood Pressure Mean 66 Blood Pressure Mean [Right Arm] 76 Blood Pressure Position [Right Arm] Lying Pulse Oximetry 93 98 97 Oxygen Delivery Method Room Air Room Air Room Air Sepsis Recent Fever Within 48 Hours No Sepsis New/Unexplained Change in Mental Status N/A Sepsis Action Taken by Nursing No Action Required 04/07/25 10:11 04/07/25 10:32 04/07/25 10:36 Temperature Temperature Source Pulse Rate 161 H 104 H 118 H Pulse Rate [Apical] Pulse Rate from SpO2 Sensor Pulse Rhythm Pulse Rhythm [Apical] Pulse Strength [Apical] Respiratory Rate Respiratory Effort / Characteristics Respiratory Depth Respiratory Pattern Blood Pressure 122/102 H 109/79 Blood Pressure [Right Arm] Blood Pressure Mean Blood Pressure Mean [Right Arm] Blood Pressure Position [Right Arm] Pulse Oximetry Oxygen Delivery Method Sepsis Recent Fever Within 48 Hours Sepsis New/Unexplained Change in Mental Status Sepsis Action Taken by Nursing 04/07/25 10:37 04/07/25 10:45 04/07/25 11:08 Temperature Temperature Source Pulse Rate 122 H 124 H Pulse Rate [Apical] 113 H Pulse Rate from SpO2 Sensor 71 Pulse Rhythm Pulse Rhythm [Apical] Pulse Strength [Apical] Respiratory Rate 22 19 Respiratory Effort / Characteristics Respiratory Depth Normal Respiratory Pattern Blood Pressure 101/71 Blood Pressure [Right Arm] 109/79 Blood Pressure Mean Blood Pressure Mean [Right Arm] 89 Blood Pressure Position [Right Arm] Pulse Oximetry 98 97 Oxygen Delivery Method Room Air Sepsis Recent Fever Within 48 Hours Sepsis New/Unexplained Change in Mental Status Sepsis Action Taken by Nursing 04/07/25 12:00 04/07/25 12:08 04/07/25 12:17 Temperature Temperature Source Pulse Rate 125 H 118 H Pulse Rate [Apical] 125 H Pulse Rate from SpO2 Sensor Pulse Rhythm Pulse Rhythm [Apical] Pulse Strength [Apical] Respiratory Rate 22 Respiratory Effort / Characteristics Respiratory Depth Respiratory Pattern Blood Pressure 108/54 L 108/54 L Blood Pressure [Right Arm] 129/88 Blood Pressure Mean Blood Pressure Mean [Right Arm] 101 Blood Pressure Position [Right Arm] Pulse Oximetry 99 Oxygen Delivery Method Room Air Sepsis Recent Fever Within 48 Hours Sepsis New/Unexplained Change in Mental Status Sepsis Action Taken by Nursing Laboratory Data Attestation: I reviewed the patient's lab results. 04/07/25 09:59 04/07/25 09:59 Lab Results 04/07/25 04/07/25 04/07/25 Range/Units 09:59 10:05 12:14 WBC 11.15 H (4.8-10.8) K/ul RBC 5.20 (4.20-5.40) M/uL Hgb 14.9 (12.0-16.0) g/dL POC Hgb 15.6 (12.0-16.0) g/dl Hct 46.1 (37.0-47.0) % POC Hct 46 (37-47) % MCV 88.7 (80.0-100.0) fL MCH 28.7 (25.0-34.0) pg MCHC 32.3 (32.0-36.0) g/dL RDW Std Deviation 45.2 (36.4-46.3) fL RDW Coeff of Dejah 14.1 (11.5-14.5) % Plt Count 240 (130-400) K/uL MPV 9.2 L (9.4-12.4) fL Immature Gran % (Auto) 0.4 % Neut % (Auto) 75.6 % Lymph % (Auto) 15.6 % [place] % (Auto) 7.7 % Eos % (Auto) 0.4 % Baso % (Auto) 0.3 % Neut # (Auto) 8.43 H (1.40-6.50) K/uL Lymph # (Auto) 1.74 (1.20-3.40) K/uL [place] # (Auto) 0.86 H (0.11-0.59) K/uL Eos # (Auto) 0.04 (0.00-0.50) K/uL Baso # (Auto) 0.03 (0.00-0.20) K/uL Immature Gran # (Auto) 0.05 (0.01-0.20) K/uL PT 10.9 (9.0-12.0) Seconds INR 1.0 (0.9-1.1) POC Sodium 138 (135-144) mmol/L Sodium 139 (136-145) mmol/L POC Potassium 3.9 (3.3-5.0) mmol/L Potassium 4.0 (3.5-5.1) mmol/L POC Chloride 98 L (101-112) mmol/L Chloride 101 (98-107) mmol/L Carbon Dioxide 30 (21-32) mmol/L POC Total CO2 26 (24-31) mmol/L Anion Gap 8 (3-11) POC Anion Gap 20.0 (16-25) mmol/L POC BUN 27 H (7-18) mg/dl BUN 28 H (6-23) mg/dl Creatinine 1.22 H (0.6-1.2) mg/dl POC Creatinine 1.4 H (0.6-1.3) mg/dl Est Cr Clr Drug Dosing 29.2 ml/min eGFR 42.42 BUN/Creatinine Ratio 23.0 H (10-20) Glucose 121 H (70-99(Fasting)) mg/dl POC Glucose (other) 116 H (70-99) mg/dl Calcium 8.6 (8.6-10.3) mg/dl POC Ioniz Calcium Annamaria 1.06 L (1.12-1.32) mmol/l Phosphorus 3.2 (2.5-4.9) mg/dl Magnesium 2.1 (1.7-2.4) mg/dl Total Bilirubin 0.7 (0.2-1.0) mg/dl AST 20 (13-39) U/L ALT 16 (7-52) U/L Alkaline Phosphatase 61 (34-104) U/L Troponin I High Sens 405.9 H* 420.5 H* (0-14) pg/ml Total Protein 5.9 L (6.0-8.3) gm/dl Albumin 3.1 L (3.4-5.0) gm/dl Globulin 2.8 (2.5-4.0) gm/dl Albumin/Globulin Ratio 1.1 (0.9-2) Lipase 18 (11-82) U/L TSH 3.987 (0.300-4.500) uIu/ml Administered Medications Apixaban (Apixaban 5 Mg Tablet) 5 mg PO BID [facility] Stop: 05/07/25 20:59 Last Admin: 04/07/25 20:40 Dose: 5 mg Documented By: [facility] [place] Metoprolol Tartrate (Metoprolol Tartrate 25 Mg Tab) 12.5 mg PO TID CHANELLE Stop: 05/07/25 14:48 Last Admin: 04/07/25 20:38 Dose: 12.5 mg Documented By: Admin: 04/07/25 15:28 Dose: 12.5 mg Documented By: ARMIDA Discontinued Medications Sodium Chloride (Nss) 1,000 mls @ 999 mls/hr IV .Q1H1M ONE Stop: 04/07/25 11:08 Last Infusion: 04/07/25 11:14 Dose: Infused Documented By: MARIA INES Admin: 04/07/25 10:09 Dose: 999 mls/hr Documented By: RATNA Metoprolol Tartrate (Metoprolol Tartrate 1 Mg/Ml Vial) 5 mg IV NOW STA Stop: 04/07/25 10:09 Last Admin: 04/07/25 10:11 Dose: 5 mg Documented By: RATNA Metoprolol Tartrate (Metoprolol Tartrate 1 Mg/Ml Vial) 5 mg IV NOW STA Stop: 04/07/25 11:03 Last Admin: 04/07/25 11:08 Dose: 5 mg Documented By: [id number] Metoprolol Tartrate (Metoprolol Tartrate 1 Mg/Ml Vial) 5 mg IV NOW STA Stop: 04/07/25 11:46 Last Admin: 04/07/25 12:17 Dose: 5 mg Documented By: [id number] Imaging Data Radiologist's Impression: Chest X-Ray 04/07/25 09:57 SINGLE VIEW CHEST CLINICAL HISTORY: Chest pain FINDINGS: An AP, portable, upright chest radiograph is compared to study dated 01/01/2010. The heart is mildly enlarged noting atherosclerotic calcification of the thoracic aorta. The pulmonary vasculature is noncongested. There is bibasilar scarring/atelectasis. No airspace consolidation or large pleural effusion is identified. No pneumothorax is seen. The skeletal structures are osteopenic. The bony thorax is grossly intact. IMPRESSION: No acute cardiopulmonary abnormality is identified. ACT 112: Negative or not required by law. Electronically signed by: Ronny Shirley M.D. 04/07/2025 10:[address] 04/07/25 10:08 CT SCAN OF THE CERVICAL SPINE CLINICAL HISTORY: Neck pain. Fall yesterday. COMPARISON STUDY: Cervical spine CT dated 12/29/2017. TECHNIQUE: CT scan of the cervical spine is performed from the skull base to the upper thoracic spine. Images are reviewed in the axial, sagittal, and coronal planes. IV contrast was not administered for this examination. A dose lowering technique was utilized adhering to the principles of ALARA. CT DOSE: 1012.6 mGy.cm FINDINGS: Skeletal structures: The skeletal structures are osteopenic. There is no evidence of fracture or subluxation involving the cervical spine. Vertebral body height and alignment are maintained. There is straightening of cervical lordosis. Anterior osteophytes are seen throughout. The odontoid process and lateral masses are intact. The atlantoaxial articulation is preserved noting productive degenerative change. The spinous processes appear intact. Mild facet arthropathy is noted in the lower cervical region. Intervertebral discs: There is mild multilevel disc space narrowing, greatest at C5-C6 and C6-C7. Central canal: Posterior disc osteophyte complexes at C4-C5, C5-C6, and C6-C7 may contribute to mild acquired compromise of the central canal. Soft tissues: The prevertebral and paraspinous soft tissues are within normal limits. There is atherosclerotic calcification of the carotid bulbs. Calvarium: The visualized calvarium at the skull base appears intact. Brain parenchyma: Partially visualized brain parenchyma at the skull base is within normal limits. Sinuses and mastoids: The visualized paranasal sinuses are clear. The mastoid air cells are well pneumatized. Lung apices: Clear as visualized. IMPRESSION: 1. There is no evidence of fracture or subluxation involving the cervical spine. 2. Osteopenia and mild spondylotic change as above. ACT 112: Negative or not required by law. Electronically signed by: Ronny Shirley M.D. 04/07/2025 11:[address] 04/07/25 10:08 CT SCAN OF THE BRAIN WITHOUT IV CONTRAST CLINICAL HISTORY: Fall yesterday. COMPARISON STUDY: CT of the brain dated 12/29/2017 TECHNIQUE: Unenhanced CT scan of the brain is performed from the vertex to the skull base. Images are reviewed in the axial, sagittal, coronal planes. A dose lowering technique was utilized adhering to the principles of ALARA. FINDINGS: Brain parenchyma: There is age-related involutional change noting mild subcortical and periventricular microangiopathic disease. There is no hemorrhage, mass effect, or evidence of acute territorial ischemia by CT criteria. Rain-white matter differentiation is preserved. No extra-axial fluid collection is seen. Ventricles, sulci, cisterns: Prominent secondary to involutional change. Intracranial vasculature: There is atherosclerotic calcification of the cavernous carotid and vertebral arteries. Calvarium: Unremarkable. Sinuses and mastoids: The visualized paranasal sinuses are clear. The mastoid air cells are well pneumatized. Orbits: The bony orbits are grossly intact. There are bilateral ocular lens implants. IMPRESSION: There is no hemorrhage, mass effect, or evidence of acute territorial ischemia by CT criteria. ACT 112: Negative or not required by law. Electronically signed by: Ronny Shirley M.D. 04/07/2025 10:59 AM Discharge Plan Visit Data Chief Complaint: Fall Stated Complaint: FALL YESTERDAY ED Provider: Jakub Reyes Discharge Problem: Atrial fibrillation with RVR, Acute renal failure, Atrial fibrillation, new onset, Elevated troponin Patient Disposition: Admitted As Inpatient Condition: Serious Discharge Instructions Interventions: ED Discharge Assessment Last Done: 04/07/25 14:31 Discharge Problem: Acute renal failure Qualifiers: Acute renal failure type: unspecified Qualified Code(s): N17.9 - Acute kidney failure, unspecified
[2025-04-07] MEDS: SODIUM CHLORIDE 0.9% 1,000 ML IV ONE (10:09)
[2025-04-07] MEDS: METOPROLOL TARTRATE 1 MG/ML VIAL IV STA ×3 (10:11→12:17)
[2025-04-07 10:14] LABS: Hematocrit (blood only) 46.1 % (37.0-47.0); Hemoglobin 14.9 g/dL (12.0-16.0); Immature Granulocytes # (auto) 0.05 K/uL (0.01-0.20); Immature Granulocytes % (auto) 0.4 %; Mean Corpuscular Hemoglobin 28.7 pg (25.0-34.0); Mean Corpuscular Volume 88.7 fL (80.0-100.0); Platelet Count 240 K/uL (130-400); RDW Standard Deviation 45.2 fL (36.4-46.3); Red Blood Count 5.20 M/uL (4.20-5.40); White Blood Count 11.15 K/ul (4.8-10.8)
--- NOTE | 2025-04-07 10:28 | XRay Report ---
SINGLE VIEW CHEST CLINICAL HISTORY: Chest pain FINDINGS: An AP, portable, upright chest radiograph is compared to study dated 01/01/2010. The heart i s mildly enlarged noting atherosclerotic calcification of the thoracic aorta. The pulmonary vasculatu re is noncongested. There is bibasilar scarring/atelectasis. No airspace consolidation or large pleur al effusion is identified. No pneumothorax is seen. The skeletal structures are osteopenic. The bony thorax is grossly intact. IMPRESSION: No acute cardiopulmonary abnormality is identified. ACT 112: Negative or not required by law. Electronically signed by: Ronny Shirley M.D. 04/07/2025 10:26 AM
[2025-04-07 10:32] LABS: Alanine Aminotransferase 16.0 U/L (7-52); Albumin Globulin Ratio 1.1 (0.9-2); Albumin Level 3.1 gm/dl (3.4-5.0); Alkaline Phosphatase 61.0 U/L (34-104); Anion Gap 8.0 (3-11); Bilirubin,Total 0.7 mg/dl (0.2-1.0); Blood Urea Nitrogen 28.0 mg/dl (6-23); Calcium 8.6 mg/dl (8.6-10.3); Carbon Dioxide 30.0 mmol/L (21-32); Chloride 101.0 mmol/L (98-107); Creatinine Clr Calc Pharmacy 29.2 ml/min; Globulin 2.8 gm/dl (2.5-4.0); Glucose 121.0 mg/dl (70-99(Fasting)); Lipase 18.0 U/L (11-82); Magnesium 2.1 mg/dl (1.7-2.4); Potassium 4.0 mmol/L (3.5-5.1); Sodium 139.0 mmol/L (136-145); Total Protein 5.9 gm/dl (6.0-8.3)
[2025-04-07 10:44] LABS: INR 1.0 (0.9-1.1); Prothrombin Time 10.9 Seconds (9.0-12.0)
[2025-04-07 10:46] LABS: Thyroid Stimulating Hormone 3.987 uIu/ml (0.300-4.500)
--- NOTE | 2025-04-07 11:01 | CT Scan Report ---
CT SCAN OF THE BRAIN WITHOUT IV CONTRAST CLINICAL HISTORY: Fall yesterday. COMPARISON STUDY: CT of the brain dated 12/29/2017 TECHNIQUE: Unenhanced CT scan of the brain is performed from the vertex to the skull base. Images are reviewed in the axial, sagittal, coronal planes. A dose lowering technique was utilized adhering to the principles of ALARA. FINDINGS: Brain parenchyma: There is age-related involutional change noting mild subcortical and periventricula r microangiopathic disease. There is no hemorrhage, mass effect, or evidence of acute territorial isc hemia by CT criteria. Rain-white matter differentiation is preserved. No extra-axial fluid collection is seen. Ventricles, sulci, cisterns: Prominent secondary to involutional change. Intracranial vasculature: There is atherosclerotic calcification of the cavernous carotid and vertebr al arteries. Calvarium: Unremarkable. Sinuses and mastoids: The visualized paranasal sinuses are clear. The mastoid air cells are well pneu matized. Orbits: The bony orbits are grossly intact. There are bilateral ocular lens implants. IMPRESSION: There is no hemorrhage, mass effect, or evidence of acute territorial ischemia by CT teodora blanchard. ACT 112: Negative or not required by law. Electronically signed by: Ronny Shirley M.D. 04/07/2025 10:59 AM
--- NOTE | 2025-04-07 11:09 | CT Scan Report ---
CT SCAN OF THE CERVICAL SPINE CLINICAL HISTORY: Neck pain. Fall yesterday. COMPARISON STUDY: Cervical spine CT dated 12/29/2017. TECHNIQUE: CT scan of the cervical spine is performed from the skull base to the upper thoracic spine . Images are reviewed in the axial, sagittal, and coronal planes. IV contrast was not administered fo r this examination. A dose lowering technique was utilized adhering to the principles of ALARA. CT DOSE: 1012.6 mGy.cm FINDINGS: Skeletal structures: The skeletal structures are osteopenic. There is no evidence of fracture or subl uxation involving the cervical spine. Vertebral body height and alignment are maintained. There is st raightening of cervical lordosis. Anterior osteophytes are seen throughout. The odontoid process and lateral masses are intact. The atlantoaxial articulation is preserved noting productive degenerative change. The spinous processes appear intact. Mild facet arthropathy is noted in the lower cervical re gion. Intervertebral discs: There is mild multilevel disc space narrowing, greatest at C5-C6 and C6-C7. Central canal: Posterior disc osteophyte complexes at C4-C5, C5-C6, and C6-C7 may contribute to mild acquired compromise of the central canal. Soft tissues: The prevertebral and paraspinous soft tissues are within normal limits. There is athero sclerotic calcification of the carotid bulbs. Calvarium: The visualized calvarium at the skull base appears intact. Brain parenchyma: Partially visualized brain parenchyma at the skull base is within normal limits. Sinuses and mastoids: The visualized paranasal sinuses are clear. The mastoid air cells are well pneu matized. Lung apices: Clear as visualized. IMPRESSION: 1. There is no evidence of fracture or subluxation involving the cervical spine. 2. Osteopenia and mild spondylotic change as above. ACT 112: Negative or not required by law. Electronically signed by: Ronny Shirley M.D. 04/07/2025 11:07 AM
--- NOTE | 2025-04-07 13:08 | History & Physical Report ---
Date of Service April 07, 2025 Assessment & Plan (1) Atrial fibrillation with RVR: Plan: Given acute onset of symptoms, I think we can confidently say it is new onset at approximately 12:00pm on 04/06/2025. CHADs-VASc of 3 (age & female). Low bleeding risk per patient history. Rates nearly controlled with metoprolol tartrate 5 mg IV x 3 doses. BP overall stable. - Begin anticoagulation with apixaban 5 mg PO BID (risks:benefits discussed with patient) - Begin metoprolol tartrate 12.5 mg PO TID -> Simply before discharge. - Continue metoprolol tartrate 5 mg IV Q2h PRN for HR > 120 - Echocardiogram ordered - Cardiology consulted - Patient's sees Dr. French and she would like to see him outpatient. Given new data and symptoms, consideration given for early cardioversion. - Defer NPO status as I would assume OLIVERIO and cardioversion would not happen jessica orrow in any event. (2) NSTEMI (non-ST elevated myocardial infarction): Plan: NO symptoms of chest pain, shortness of breath, n/v, or other ayptical anginal symptoms. I suspect this is demand ischemia in setting of initial HR of 150s. Troponin trend is essentially flat. EKG on presentation had TWIs in V1-V2, but I see no ST elevation or depression. - Repeat EKG - Treat afib as above - Defer to cardiology regarding timing/options for more testing. - Treat symptoms (3) Acute renal failure: Plan: Baseline CKD, Stage III (eGFR ~56). Now coming in with ARF on CKD. Suspect due to dehydration from feeling unwell vs. poor renal perfusion from afib with RVR. Given 1L NSS in ER. - Monitor Cr - Dose meds for eGFR ~45 - Still meets for full apixaban dosing (4) Anxiety: Plan: Calm affect in ER. Denies depression/anxiety presently. - Continue escitalopram (5) Chronic kidney disease, stage 3: Plan: See above Plan FULL CODE - Discussed at bedside in ER. Patient fully alert and orient and capable of making that decision History of Present Illness Chief Complaint: Dizziness Primary Care Provider: Khadijha Alexander MD Ms. Sosa is an 89yo F w/ PMH of macular degeneration who presents with presumed new-onset afib with RVR. She was in her normal state of health until about noon yesterday (04/06) when she felt an acute onset dizziness. She was in the kitchen, lost her balance, and struck her head as she fell against the cabinets. She denies LoC with the fall. Her helped her up, but she remained dizzy, lightheaded, and just generally "fuzzy" since that time. She has not fallen since then, but has had to use her 's walker to stay steady. She denies any sense of palpitations, heart racing, chest pain/pressure, shortness of breath, nausea/vomiting, fevers/chills/sweats, or any issues with urination or constipation/diarrhea. She denies any falls other than the one yesterday in the last 3-4 months, denies any history of GI bleed or intracranial hemorrhage, or any other bleeding issues. Allergies Allergy/AdvReac Type Severity Reaction Status Date / Time red yeast rice Allergy Unknown Verified 07/07/24 09:58 Vjdrimb-VKW-DwW Reductase Allergy Unknown LEG PAINS Verified 11/01/23 09:27 Inhibitor [Vxvdizw-Scy-Jxs Reductase Inhibitor] Lipitor TABS Allergy Unknown Uncoded 11/01/23 09:27 Red Yeast Rice CAPS Allergy Unknown Uncoded 11/01/23 09:27 Zocor TABS Allergy Unknown Uncoded 11/01/23 09:27 Home Medications Medication Instructions Recorded Confirmed Type calcium carbonate (Calcium 500) 500 mg PO DAILY 04/11/19 04/07/25 History cholecalciferol (vitamin D3) 25 1,000 units PO DAILY 04/11/19 04/07/25 History mcg (1,000 unit) capsule aspirin 81 mg tablet,delayed 81 mg PO DAILY #30 tabs 05/07/21 04/07/25 Rx release vitamins A,C,B-ckea-urjzww 4,296 1 cap PO DAILY 11/01/23 04/07/25 History mcg-226 mg-90 mg capsule (PreserVision AREDS) mecobalamin (vitamin B12) 1 tab PO DAILY 01/26/25 04/07/25 History escitalopram oxalate 10 mg tablet 10 mg PO DAILY #90 tabs 02/19/25 04/07/25 Rx Past Med/Surg History Problem List (Updated 04/07/25 @ 13:06 by Mike Fabian MD) NSTEMI (non-ST elevated myocardial infarction) Acute renal failure Atrial fibrillation with RVR History of infiltrating ductal carcinoma of breast Anxiety (Chronic) Vitamin D deficiency (Acute) Tremor (Acute) Solitary pulmonary nodule (Acute) Prediabetes (Acute) Hypercholesterolemia (Acute) Depression (Acute) Allergic rhinitis (Acute) Statin myopathy Chronic kidney disease, stage 3 Medical History Community acquired pneumonia Compression fracture of L1 lumbar vertebra 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 Daughter No problems noted. Son No problems noted. Son No problems noted. Son No problems noted. Son No problems noted. Denies family history of Ovarian cancer Prostate cancer Coronary heart disease Colorectal cancer Social History Smoking Status: Never smoker Second Hand Exposure: No; Do You Dip or Chew Tobacco: No; Hx Alcohol Use: No Hx Substance Use: No Preferred Language: Pashto Communication Ability: Effective Visual Impairment: No Limitations Hearing Ability: Normal Regulatory Process Manager Required: No Beliefs That Will Affect Care: None marital status: Current Living Situation: Spouse current occupational status: retired Feels Safe at Home: Yes Childhood Exposure to Second-Hand Smoke: No Diet: regular caffeine: Yes during the past year weight has: remained stable Dental Care, Regularly: Yes Physical Activity Frequency: Does not Exercise Seatbelt Use: always Sunscreen Use: Yes (sometimes ) Assistive Devices: Other Review of Systems Review of Systems: All systems reviewed & are unremarkable except as noted in HPI & below Physical Exam Constitutional: WD/WN, vitals as above Eyes: EOM intact bilaterally; no conjunctival abnormality ENMT: external ear and nose normal, oropharynx normal Respiratory: normal respiratory effort, lungs clear to auscultation Cardiovascular: Rate/Rhythm: + tachycardic and + irregularly irregular Heart Sounds: normal S1 and normal S2; no gallop, no murmur and no cardiac rub Gastrointestinal (Abdomen): Inspection/Auscultation: abdomen normal to inspection Skin: no rashes, warm and dry Neurologic: awake; not confused Speech / Cognition: normal speech and normal cognition Psychiatric: Orientation: alert and oriented x 3 Results & Data Results & Data Vital Signs (Past 12 Hours) Vital Signs Temp Pulse Pulse Resp BP BP Pulse Ox 04/07/25 12:17 118 H 108/54 L 04/07/25 11:08 124 H 101/71 04/07/25 10:45 122 H 19 97 04/07/25 10:37 113 H 22 109/79 98 04/07/25 10:36 118 H 04/07/25 10:32 104 H 109/79 04/07/25 10:11 161 H 122/102 H 04/07/25 10:03 146 H 23 97 04/07/25 09:53 147 H 27 H 90/69 L 98 04/07/25 09:43 36.6 C 104 H 16 114/42 L 93 O2 Del Method 04/07/25 12:17 04/07/25 11:08 04/07/25 10:45 Room Air 04/07/25 10:37 04/07/25 10:36 04/07/25 10:32 04/07/25 10:11 04/07/25 10:03 Room Air 04/07/25 09:53 Room Air 04/07/25 09:43 Room Air Code Status & VTE Plan VTE Prophylaxis Plan VTE Prophylaxis will be ordered: No PG Care Time/CCT Total # of Minutes Spent Total Time Spent with Patient: Total time spent is greater than 50% in coordination of care (as documented) at patient's floor/unit and/or counseling patient: Coding Level of Care Code 90809 INT INP/OBS CARE MIN Diagnoses Atrial fibrillation with RVR I48.91 NSTEMI (non-ST elevated myocardial infarction) I21.4 Acute renal failure, unspecified acute renal failure type N17.9 Acute renal failure type: unspecified Anxiety F41.9 Stage 3a chronic kidney disease N18.31 Chronic kidney disease stage 3 subtype: stage 3a (GFR 45-59) (3) Acute renal failure Acute renal failure type: unspecified Qualified Code(s): N17.9 - Acute kidney failure, unspecified (5) Chronic kidney disease, stage 3 Chronic kidney disease stage 3 subtype: stage 3a (GFR 45-59) Qualified Code(s): N18.31 - Chronic kidney disease, stage 3a
[2025-04-07 14:07] LABS: Appearance Urine Clear (Clear); Bacteria Urine Automated 1+ (None Seen); Glucose Urine UA Negative (Negative); RBC Urine Automated 0-2 /hpf (0-2); WBC Urine Automated 21-50 /hpf (0-5)
[2025-04-07] MEDS ORDERED: METOPROLOL TARTRATE 1 MG/ML VIAL IV PRN (14:49)
[2025-04-07] MEDS ORDERED: ALUMINUM/MAGNESIUM SUSP 30 ML UDC PO PRN (14:49)
[2025-04-07] MEDS ORDERED: MELATONIN 3 MG TAB PO PRN (14:49)
[2025-04-07] MEDS ORDERED: ACETAMINOPHEN 325 MG TAB PO PRN (14:49)
[2025-04-07] MEDS: METOPROLOL TARTRATE 25 MG TAB PO SCH (15:28)
[2025-04-07] MEDS: APIXABAN 5 MG TABLET PO SCH (20:40)
[2025-04-08 05:57] LABS: Hematocrit (blood only) 39.5 % (37.0-47.0); Hemoglobin 13.2 g/dL (12.0-16.0); Mean Corpuscular Hemoglobin 29.5 pg (25.0-34.0); Mean Corpuscular Volume 88.2 fL (80.0-100.0); Platelet Count 188 K/uL (130-400); RDW Standard Deviation 45.5 fL (36.4-46.3); Red Blood Count 4.48 M/uL (4.20-5.40); White Blood Count 9.95 K/ul (4.8-10.8)
[2025-04-08 06:26] LABS: Anion Gap 2.0 (3-11); Blood Urea Nitrogen 27.0 mg/dl (6-23); Calcium 8.0 mg/dl (8.6-10.3); Carbon Dioxide 31.0 mmol/L (21-32); Chloride 105.0 mmol/L (98-107); Creatinine Clr Calc Pharmacy 31.3 ml/min; Glucose 102.0 mg/dl (70-99(Fasting)); Potassium 4.8 mmol/L (3.5-5.1); Sodium 138.0 mmol/L (136-145)
[2025-04-08] MEDS: CHOLECALCIFEROL 25 MCG (1000 UNITS) TAB PO SCH (07:43)
[2025-04-08] MEDS: ESCITALOPRAM OXALATE 10 MG TAB PO SCH (07:44)
[2025-04-08] MEDS: CALCIUM CARBONATE 1250MG TAB PO SCH (07:44)
[2025-04-08] MEDS: METOPROLOL TARTRATE 25 MG TAB PO SCH (09:21)
[2025-04-08 09:23] LABS: T4 Free Thyroxine 1.15 ng/dl (0.61-1.60)
--- NOTE | 2025-04-08 10:30 | Hospitalist Progress Note ---
Date of Service April 08, 2025 Assessment & Plan (1) Atrial fibrillation with RVR: Plan: Appears to be of new onset. Metoprolol uptitrated today, April 08. Ventricular rate is still a little fast. Continue Eliquis. Telemetry. Await cardiology consultation and recommendations. Cardiac echo report is pending. Check free T3 and free T4 levels (2) NSTEMI (non-ST elevated myocardial infarction): Plan: She appears to have demand ischemia related to elevated heart rate. No acute EKG changes and no chest pain. No evidence of acute coronary syndrome. (3) Acute renal failure: Plan: Actually, she has very mild acute on chronic kidney disease stage III. Creatinine was only 1.2 on admission and today, April 08, is 1.1. Her baseline is 0.9. Monitor urine output. Serial labs. (4) Anxiety: Plan: Stable. Denies depression/anxiety presently. Continue escitalopram Plan Hopeful discharge back to her home within the next day or 2 Admission and Anticipated Discharge Date Admission Date: April 07, 2025 Subjective Alert and oriented. No distress. Ventricular rate associated with atrial fibrillation remains slightly elevated. Metoprolol uptitrated today, April 08. Will check free T3 and free T4 levels. Cardiac echo report pending. Troponin is mildly elevated but not trending and probably due to demand ischemia. No evidence of acute coronary syndrome. Cardiology consultation requested and pending. Review of Systems 2 Review of Systems: Constitutionalno fever or chills ENTno blurred vision, no double vision, no epistaxis, no sore throat Respiratoryno cough, no wheezing, no shortness of breath Cardiacno palpitations, no chest pain, no syncope Levi nausea, vomiting, diarrhea, melena, hematochezia GUno urinary retention, no urinary incontinence, no dysuria, no hematuria Musculoskeletalno joint pain, no muscle tenderness Skinno bruising, no rashes, no pruritus Neurono isolated weakness, no paresthesia, no weakness Psychno depression, no anxiety Physical Exam 2 Physical Exam: General-alert and oriented x3, no fever, no chills HEENT-head atraumatic and normocephalic, pupils equal and reactive to light, extraocular muscles intact Neck-no lymphadenopathy or thyromegaly, trachea midline Chest-clear to auscultation. No rales, wheezing or rhonchi Cardiac-irregular rhythm, slightly tachycardic rate. Abdomen-normal bowel sounds, no hepatosplenomegaly Extremities-no cyanosis, clubbing, or edema Neuro-cranial nerves II through XII intact, motor and sensory function within normal limits, strength symmetrical, no focal deficits Psych-normal affect, normal mood Results & Data Results & Data Vital Signs (Past 12 Hours) Vital Signs Temp Pulse Pulse Resp BP Pulse Ox O2 Del Method 04/08/25 09:25 112 H 109/71 04/08/25 07:52 Room Air 04/08/25 07:24 36.4 C L 95 H 18 138/91 95 Room Air 04/08/25 05:32 101 H 04/08/25 02:40 36.8 C 90 18 127/72 93 Room Air 04/07/25 23:02 36.7 C 86 16 115/72 97 Room Air Laboratory Results 04/08/25 05:37 04/08/25 05:37 PG Care Time/CCT Total # of Minutes Spent Total Time Spent with Patient: Total time spent is greater than 50% in coordination of care (as documented) at patient's floor/unit and/or counseling patient: Coding Level of Care Code 80103 SUB INP/OBS CARE 3/50MIN Diagnoses Atrial fibrillation with RVR I48.91 NSTEMI (non-ST elevated myocardial infarction) I21.4 Acute renal failure, unspecified acute renal failure type N17.9 Acute renal failure type: unspecified Anxiety F41.9 (3) Acute renal failure Acute renal failure type: unspecified Qualified Code(s): N17.9 - Acute kidney failure, unspecified
--- NOTE | 2025-04-08 10:39 | XCELERA ---
[id number] [id number]
--- NOTE | 2025-04-08 11:42 | Electrocardiogram Report ---
Test Reason : Blood Pressure : */* mmHG Vent. Rate : 156 BPM Atrial Rate : * BPM P-R Int : * ms QRS Dur : 66 ms QT Int : 278 ms P-R-T Axes : * -87 92 degrees QTcB Int : 448 ms Atrial fibrillation with rapid ventricular response Left axis deviation Pulmonary disease pattern Nonspecific ST and T wave abnormality Abnormal ECG Confirmed by Sabino French ([id number]) on 04/08/2025 11:42:24 AM Referred By: Confirmed By: Sabino French
--- NOTE | 2025-04-08 11:42 | Electrocardiogram Report ---
Test Reason : Blood Pressure : */* mmHG Vent. Rate : 115 BPM Atrial Rate : * BPM P-R Int : * ms QRS Dur : 70 ms QT Int : 342 ms P-R-T Axes : * -89 36 degrees QTcB Int : 473 ms Atrial fibrillation with rapid ventricular response Left axis deviation Abnormal ECG When compared with ECG of 07-Apr-2025 09:55, (unconfirmed) Nonspecific T wave abnormality no longer evident in Lateral leads Confirmed by Sabino French ([id number]) on 04/08/2025 11:42:31 AM Referred By: Jakub Reyes Confirmed By: Sabino French
--- NOTE | 2025-04-08 11:53 | Electrocardiogram Report ---
Test Reason : Blood Pressure : */* mmHG Vent. Rate : 111 BPM Atrial Rate : * BPM P-R Int : * ms QRS Dur : 70 ms QT Int : 336 ms P-R-T Axes : * -80 -33 degrees QTcB Int : 456 ms Atrial fibrillation with rapid ventricular response Left axis deviation Abnormal ECG When compared with ECG of 07-Apr-2025 13:17, (unconfirmed) Nonspecific T wave abnormality now evident in Inferior leads Confirmed by Sabino French ([id number]) on 04/08/2025 11:52:39 AM Referred By: Jakub Reyes Confirmed By: Sabino French
--- NOTE | 2025-04-08 12:07 | Cardiology Consultation ---
Date of Consultation April 08, 2025 Assessment & Plan (1) Atrial fibrillation, new onset: -Arrhythmia may have started 24 hours prior to presentation, however, this is not certain. -Would increase metoprolol to tartrate to 50 mg twice daily. -Agree with Eliquis 5 mg twice daily -Agree with holding aspirin in this elderly female. -Would continue rate control and long-term anticoagulation as an outpatient. History of Present Illness Attending Physician: Sam Buck MD History of Present Illness Mrs. Sosa is an 89-year-old female admitted yesterday with atrial fibrillation and a rapid ventricular response. This consultation was ordered to assist in her cardiac management. The patient was in her usual state of health until Wednesday at approximately noon when she had the abrupt onset of dizziness and suffered a mechanical fall. She did strike her head and on a cabinet while falling to the floor. Her dizziness continued, and when she awoke on Wednesday morning, she opted to proceed to the emergency room for further evaluation. On arrival here, the patient was noted to be in atrial fibrillation with a rapid ventricular response. She was given beta-yousif therapy and started on Eliquis. Her ventricular response has been better controlled. She has not felt any palpitations. She has never known of the diagnosis of atrial fibrillation. Currently, patient resting comfortably in bed without complaints. Past medical and surgical history 1. Hypercholesterolemia 2. Hyperglycemia 3. Chronic renal failure 4. History of breast carcinoma 5. Anxiety/depression 6. Macular degeneration 7. Osteoporosis 8. L1 compression fracture 9. Intraocular lens implants 10. Hysterectomy 11. Cholecystectomy 12. Tonsillectomy Social history lives with her No tobacco or alcohol Family history Mother at 42 from breast carcinoma Father at 91 from unknown causes Review of system A 10 point review of systems was undertaken and negative except that described above. Allergies Allergy/AdvReac Type Severity Reaction Status Date / Time red yeast rice Allergy Unknown Unknown Verified 04/07/25 15:05 Zfjnmuc-OWM-PiD Reductase Allergy Unknown LEG PAINS Verified 11/01/23 09:27 Inhibitor [Enjagxv-Qyp-Rdt Reductase Inhibitor] atorvastatin AdvReac Unknown Verified 04/07/25 15:05 simvastatin [From Zocor] AdvReac Unknown Verified 04/07/25 15:05 Home Medications Medication Instructions Recorded Confirmed Type calcium carbonate (Calcium 500) 500 mg PO DAILY 04/11/19 04/07/25 History cholecalciferol (vitamin D3) 25 1,000 units PO DAILY 04/11/19 04/07/25 History mcg (1,000 unit) capsule aspirin 81 mg tablet,delayed 81 mg PO DAILY #30 tabs 05/07/21 04/07/25 Rx release vitamins A,C,T-adea-olgiut 4,296 1 cap PO DAILY 11/01/23 04/07/25 History mcg-226 mg-90 mg capsule (PreserVision AREDS) mecobalamin (vitamin B12) 1 tab PO DAILY 01/26/25 04/07/25 History escitalopram oxalate 10 mg tablet 10 mg PO DAILY #90 tabs 02/19/25 04/07/25 Rx Patient History Medical History Community acquired pneumonia Compression fracture of L1 lumbar vertebra 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 Daughter No problems noted. Son No problems noted. Son No problems noted. Son No problems noted. Son No problems noted. Denies family history of Ovarian cancer Prostate cancer Coronary heart disease Colorectal cancer Social History Smoking Status: Never smoker Second Hand Exposure: No; Do You Dip or Chew Tobacco: No; Hx Alcohol Use: No Hx Substance Use: No Preferred Language: Nigerian Communication Ability: Effective Visual Impairment: No Limitations Hearing Ability: Normal Cutter Hot Knife Required: No Beliefs That Will Affect Care: None marital status: Current Living Situation: Spouse current occupational status: retired Feels Safe at Home: Yes Safety Concerns: Feels Safe At This Time Childhood Exposure to Second-Hand Smoke: No Diet: regular caffeine: Yes during the past year weight has: remained stable Dental Care, Regularly: Yes Physical Activity Frequency: Does not Exercise Seatbelt Use: always Sunscreen Use: Yes (sometimes ) Assistive Devices: None Physical Exam Physical Exam: In general this is a well-developed well-nourished white female in no acute distress. HEENT exam is negative. Neck reveals normal carotid upstrokes without bruits. Jugular venous pressure is flat at 90. There is no thyromegaly. Cardiovascular exam reveals an irregularly irregular rhythm with distant heart sounds. Lungs are clear without rales, rhonchi, or wheezes. Abdomen is soft without bruits. Extremities reveal intact radial artery pulses bilaterally. There is no peripheral edema. Results & Data Vital Signs (Past 12 Hours) Vital Signs Temp Pulse Pulse Resp BP Pulse Ox O2 Del Method 04/08/25 10:59 36.4 C L 90 18 138/66 97 Room Air 04/08/25 09:25 112 H 109/71 04/08/25 07:52 Room Air 04/08/25 07:24 36.4 C L 95 H 18 138/91 95 Room Air 04/08/25 05:32 101 H 04/08/25 02:40 36.8 C 90 18 127/72 93 Room Air Laboratory Results CBC and electrolytes are unremarkable. Initial high-sensitivity troponin was 406 with follow-up values of 420 and 332. TSH was normal at 3.98. Magnesium level normal at 2.1. Diagnostic Findings Echocardiogram notes normal left ventricular systolic function with ejection fraction of 55 to 60%. There is mild LVH along with mild mitral and tricuspid regurgitation. EKG notes atrial fibrillation with a rapid ventricular response, left axis deviation, nonspecific T wave abnormality. Chest x-ray shows no acute disease. CT scan of the head and C-spine were unremarkable. PG Care Time/CCT Total # of Minutes Spent Total Time Spent with Patient: Total time spent is greater than 50% in coordination of care (as documented) at patient's floor/unit and/or counseling patient: Coding Level of Care Code 25735 INT INP/OBS CARE 3/75MIN Diagnoses Atrial fibrillation, new onset I48.91
[2025-04-08] MEDS: BENZONATATE 100 MG CAPSULE PO PRN (13:55)
[2025-04-08] MEDS: HYDROCORTISONE 2.5% OINT 20 GM TUBE EXT PRN (16:36)
[2025-04-08] MEDS: METOPROLOL TARTRATE 50 MG TAB PO SCH (20:21)
[2025-04-09 06:45] LABS: Hematocrit (blood only) 39.8 % (37.0-47.0); Hemoglobin 13.3 g/dL (12.0-16.0); Mean Corpuscular Hemoglobin 29.6 pg (25.0-34.0); Mean Corpuscular Volume 88.6 fL (80.0-100.0); Platelet Count 180 K/uL (130-400); RDW Standard Deviation 45.0 fL (36.4-46.3); Red Blood Count 4.49 M/uL (4.20-5.40); White Blood Count 7.90 K/ul (4.8-10.8)
[2025-04-09 07:02] LABS: Anion Gap 3.0 (3-11); Blood Urea Nitrogen 23.0 mg/dl (6-23); Calcium 8.2 mg/dl (8.6-10.3); Carbon Dioxide 30.0 mmol/L (21-32); Chloride 106.0 mmol/L (98-107); Creatinine Clr Calc Pharmacy 34.1 ml/min; Glucose 98.0 mg/dl (70-99(Fasting)); Potassium 4.5 mmol/L (3.5-5.1); Sodium 139.0 mmol/L (136-145)
[2025-04-09] MEDS: METOPROLOL TARTRATE 100 MG TAB PO SCH (08:28)
--- NOTE | 2025-04-09 14:45 | Hospitalist Progress Note ---
Date of Service April 09, 2025 Assessment & Plan (1) Atrial fibrillation with RVR: Plan: New onset Metoprolol increased to 100mg PO BID - ventricular rate is still a little fast. Continue Eliquis. TTE - unremakrable TSH - WNL (2) NSTEMI (non-ST elevated myocardial infarction): Plan: Consistent with Type 2 demand-ischemia (3) Acute renal failure: Plan: Ruled out (4) Anxiety: Plan: Continue escitalopram Plan VTE Prophylaxis - Eliquis Disposition - continue med/tele for continued uptitration, PT/OT evals Admission and Anticipated Discharge Date Admission Date: April 07, 2025 Subjective No further dizziness. Generally feeling well at rest although she reports shortness of breath while working with physical therapy and does not feel ready for discharge at this time since she came in with a fall. Physical Exam Respiratory: normal respiratory effort, lungs clear to auscultation Cardiovascular: Rate/Rhythm: + tachycardic and + irregularly irregular Heart Sounds: no murmur Extremities: no pedal edema Results & Data Results & Data Vital Signs (Past 12 Hours) Vital Signs Temp Pulse Pulse Resp BP BP Pulse Ox 04/09/25 12:20 36.5 C 86 17 120/78 95 04/09/25 11:20 97 04/09/25 08:43 04/09/25 08:20 36.4 C L 87 18 142/95 H 97 04/09/25 06:45 82 O2 Del Method 04/09/25 12:20 Room Air 04/09/25 11:20 04/09/25 08:43 Room Air 04/09/25 08:20 Room Air 04/09/25 06:45 PG Care Time/CCT Total # of Minutes Spent Total Time Spent with Patient: Total time spent is greater than 50% in coordination of care (as documented) at patient's floor/unit and/or counseling patient: Coding Level of Care Code 95612 SUB INP/OBS CARE 2/35MIN Diagnoses Atrial fibrillation with RVR I48.91 NSTEMI (non-ST elevated myocardial infarction) I21.4 Acute renal failure, unspecified acute renal failure type N17.9 Acute renal failure type: unspecified Anxiety F41.9 (3) Acute renal failure Acute renal failure type: unspecified Qualified Code(s): N17.9 - Acute kidney failure, unspecified
[2025-04-10 07:15] LABS: Hematocrit (blood only) 40.1 % (37.0-47.0); Hemoglobin 13.2 g/dL (12.0-16.0); Mean Corpuscular Hemoglobin 29.5 pg (25.0-34.0); Mean Corpuscular Volume 89.5 fL (80.0-100.0); Platelet Count 172 K/uL (130-400); RDW Standard Deviation 45.7 fL (36.4-46.3); Red Blood Count 4.48 M/uL (4.20-5.40); White Blood Count 8.25 K/ul (4.8-10.8)
[2025-04-10 07:40] LABS: Anion Gap 5.0 (3-11); Blood Urea Nitrogen 23.0 mg/dl (6-23); Calcium 8.6 mg/dl (8.6-10.3); Carbon Dioxide 31.0 mmol/L (21-32); Chloride 105.0 mmol/L (98-107); Creatinine Clr Calc Pharmacy 31.1 ml/min; Glucose 94.0 mg/dl (70-99(Fasting)); Potassium 4.6 mmol/L (3.5-5.1); Sodium 141.0 mmol/L (136-145)
[2025-04-10 08:09] VITALS: RESP 18; TEMP 97.4; O2SAT 96
[2025-04-10] MEDS: METOPROLOL TARTRATE 100 MG TAB PO SCH (09:30)
[2025-04-10 10:31] VITALS: BP 130/92; PULSE 83
--- NOTE | 2025-04-10 14:16 | Discharge Summary ---
Discharge Summary Date of Service April 10, 2025 Principal Dx & Hospital Course #1 = Principal Diagnosis (1) Atrial fibrillation with RVR: (2) NSTEMI (non-ST elevated myocardial infarction): (3) Anxiety: Plan Bettye Sosa is an 89 year old admitted to [facility] from April 07 - 2024 due to fall due to lightheadedness from new onset atrial fibrillation with rapid ventricular rate. This was treated with metoprolol for better rate control and Eliquis for stroke risk reduction. Echocardiogram was unremarkable. She remained in atrial fibrillation but with better rate control with uptitration of her metoprolol and are now medically stable for discharge. She was advised to stop aspirin while taking the Eliquis. Notes For Next Care Provider Follow up with cardiology for continued management of new onset atrial fibrillation Medication Changes From Visit Metoprolol started for rate control Eliquis started for stroke risk reduction Admission HPI Per Admitting Provider Ms. Sosa is an 89yo F w/ PMH of macular degeneration who presents with presumed new-onset afib with RVR. She was in her normal state of health until about noon yesterday (04/06) when she felt an acute onset dizziness. She was in the kitchen, lost her balance, and struck her head as she fell against the cabinets. She denies LoC with the fall. Her helped her up, but she remained dizzy, lightheaded, and just generally "fuzzy" since that time. She has not fallen since then, but has had to use her 's walker to stay steady. She denies any sense of palpitations, heart racing, chest pain/pressure, shortness of breath, nausea/vomiting, fevers/chills/sweats, or any issues with urination or constipation/diarrhea. She denies any falls other than the one yesterday in the last 3-4 months, denies any history of GI bleed or intracranial hemorrhage, or any other bleeding issues. Discharge Exam Respiratory normal respiratory effort, lungs clear to auscultation Cardiovascular Rate/Rhythm: regular rate and + irregularly irregular Heart Sounds: no murmur Extremities: no pedal edema Discharge Plan Discharge Items Patient Disposition: Home - Self-Care Reason For Visit: AFIB WITH RVR Discharge Diagnosis: New onset atrial fibrillation with rapid ventricular rate Condition on Discharge: Good Activity: Resume your previous activity Non-emergency contact: Primary Care Provider and Internal Grinder Call non-emergency contact if: you have any medication questions and your symptoms worsen Follow-up/Referrals: Sabino French MD [Physician] - (Follow up atrial fibrillation) Khadijah Alexander MD [Primary Care Provider] - 04/23/25 1:00 pm Diet: Regular Addtl Attending Provider Instructions: You were admitted to [facility] from April 07 - 2024 due to new onset atrial fibrillation with rapid ventricular rate. This was treated with metoprolol for better rate control and Eliquis for stroke risk reduction. Echocardiogram was unremarkable. You remained in atrial fibrillation and are now medically stable for discharge. Please stop aspirin while taking the Eliquis. Please follow up with cardiology for ongoing management of this. Pending Studies at Discharge: No Stand-Alone Forms: My [facility], Smoking Cessation Medications and DC Order Prescriptions: New Eliquis 5 mg Tablet 5 mg PO BID Qty: 60 0RF metoprolol tartrate 100 mg tablet 150 mg PO BID Qty: 90 0RF Continued escitalopram oxalate 10 mg tablet 10 mg PO DAILY Qty: 90 3RF cholecalciferol (vitamin D3) 1,000 unit capsule 1,000 units PO DAILY calcium carbonate [Calcium 500] 500 mg calcium (1,250 mg) tablet,chewable 500 mg PO DAILY PreserVision AREDS 4,296 mcg-226 mg-90 mg capsule 1 cap PO DAILY mecobalamin (vitamin B12) 1 tab PO DAILY Discontinued aspirin 81 mg tablet,delayed release (DR/EC) 81 mg PO DAILY Qty: 30 2RF Discharge Orders: Discharge Order (Routine); Ordered 04/10/25 Ordered By: Joseph Dyer/Other Patient Handouts: AFib Dc Admission Data Admit Date/Time: 04/07/25 12:52 Attending Provider: Joseph Stallworth Admit Provider: Mike Fabian Primary Care Provider: Khadijah Alexander Other Providers: Mike Fabian; Vinod Martinez; Sabino French; Agustín Ortiz; Clyde Chaney; Fred Multani Jr; Darrin Ace; Yazmin Ray; Natasha Lam; Amadeo Forbes; Amadeo Cummins; Serenity Salas; Elias Long; Rupa Ramos; Elias Giron; Dylan Echavarria; Robbi Ruff; Adam Solano; Apolinar Kelly; Nati Mejia; Meme Maza Other Interventions: Discharge Summary Assessment (RN) Last Done: 04/10/25 10:27 Hospital Stay Data Consultations 04/07/25 12:12 ED Decision to Admit Stat 04/07/25 14:49 Consult Cardiology Routine Diagnostic Imagining Performed 04/07/25 10:08 CT cervical spine wo con Stat IMPRESSION: 1. There is no evidence of fracture or subluxation involving the cervical spine. 2. Osteopenia and mild spondylotic change as above. CT head/brain wo con Stat IMPRESSION: There is no hemorrhage, mass effect, or evidence of acute territorial ischemia by CT criteria. Pending Results Patient Have Any Pending Studies at Discharge: No Discharge Instructions Given to Patient (Per Discharging Provider) You were admitted to [facility] from April 07 - 2024 due to new onset atrial fibrillation with rapid ventricular rate. This was treated with metoprolol for better rate control and Eliquis for stroke risk reduction. Echocardiogram was unremarkable. You remained in atrial fibrillation and are now medically stable for discharge. Please stop aspirin while taking the Eliquis. Please follow up with cardiology for ongoing management of this. Total Time Total Time Spent Total Time Spent (In Minutes): 35 Coding Level of Care Code 10033 INP/OBS DISCH >30 MIN Diagnoses Atrial fibrillation with RVR I48.91 NSTEMI (non-ST elevated myocardial infarction) I21.4 Anxiety F41.9
== END 2025-04-10 11:11 | disposition home or self-care (01) | DRG 281 ==
LOC: ED 09:43 → 2N 12:52 → SUATTDRO 12:52 → 2N 14:31

== ENCOUNTER 2025-04-14 07:10 | Inpatient (IN) ==
--- NOTE | 2025-04-14 07:32 | Emergency Department Note ---
Impression & Plan Atrial fibrillation with rapid ventricular response, SOB (shortness of breath), Elevated troponin I level ED Provider Note NAME: CHARLES HARTMAN AGE: 89 SEX: F : 1935 ARRIVES VIA: Walk-In INFORMANT: Patient, ED PROVIDER(S): Sabino Lam DO CHIEF COMPLAINT: Shortness of breath HPI: The patient is an 89-year-old female who presented to the emergency department for an evaluation of shortness of breath and cough. The patient said symptoms ongoing for the last several days. She was seen in our facility recently. She was diagnosed with atrial fibrillation. She did have a follow-up appoint with her primary care physician. The patient denies having any leg swelling greater than usual. She denies having any leg pain or trauma. Patient has not been experiencing any chest pain. The patient is not set up to see a specialist for these symptoms. She was started on an inhaler. The patient was on Tessalon Perles as well recently. The patient denies having any hemoptysis. ROS: See above HPI for pertinent positives & negatives. A total of 10 systems reviewed and were otherwise negative. PAST MEDICAL HISTORY: See Below PAST SURGICAL HISTORY: See Below FAMILY HISTORY: See Below SOCIAL HISTORY: See Below HOME MEDICATIONS: See Below ALLERGIES: See Below VITALS: See Below PHYSICAL EXAMINATION: GENERAL: Patient is awake alert in no acute distress patient is resting comfortably and showing no signs of anxiety EYES: The conjunctivae are clear. The pupils are round and reactive. EARS, NOSE, MOUTH AND THROAT: The nose is without any evidence of any deformity. NECK: The neck is nontender and supple. RESPIRATORY: Diminished breath sounds are noted at both bases. There is no rales rhonchi or wheezing appreciated. CARDIOVASCULAR: Regular rate and rhythm noted there no murmurs rubs or gallops normal S1 normal S2. GASTROINTESTINAL: The abdomen is soft. Abdomen is nontender. MUSCULOSKELETAL/EXTREMITIES: There is no evidence of gross deformity full range of motion is noted in the hips and shoulders. SKIN: Skin is warm and dry. There is no significant calf tenderness. Trace pedal edema is noted bilaterally. NEUROLOGIC: Patient is awake alert and oriented x3 MEDICAL DECISION MAKING: The patient is a 89-year-old female who presented to the emergency department for an evaluation of shortness of breath. The patient does have a history of recently diagnosed atrial fibrillation. She has had RVR in the past. She was admitted to the hospital at that time. She was found have an elevated troponin. The patient does have an elevated troponin in the emergency department today but is trending downward compared to when she was here previously. A second troponin in the emergency department today also showed it is improving compared to the previous draw. I discussed the patient's laboratory and radiographic studies with her. She was treated with IV fluids and IV beta-blockers in the emergency department. Her rate continued to improve as well as her blood pressure. Given the patient's findings I do feel that she would be a better candidate for inpatient management. For this reason I discussed her condition with the on-call [facility] hospitalist. They have agreed to evaluate the patient in the emergency department for further management and disposition. Triage Nursing notes reviewed. Prior medical records reviewed Vital Signs: reviewed and remarkable for tachycardia. Differential diagnosis: Reactive airway disease, pneumonia, pneumothorax, COPD, CHF, infections, cardiac ischemia, pulmonary embolism, musculoskeletal, gastrointestinal, as well as other pathologies. ER treatment provided: See below Diagnostics interpreted by me: ECG: EKG was obtained in the emergency department. My interpretation is atrial fibrillation at 116 bpm. There were no PVCs noted. Nonspecific ST abnormalities were appreciated. This was compared to a tracing from April 08, 2025. No changes were noted. Cardiac Monitoring: An order was placed for continuous cardiac monitoring. The monitor shows a rate of 160 bpm with atrial fibrillation with RVR. Laboratory studies: As stated above and show below. Imaging studies: See below. Radiographic imaging was reviewed by myself Consultation(s): [facility] 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 Daughter No problems noted. Son No problems noted. Son No problems noted. Son No problems noted. Son No problems noted. Denies family history of Ovarian cancer Prostate cancer Coronary heart disease Colorectal cancer Social History Smoking Status: Never smoker Second Hand Exposure: No; Do You Dip or Chew Tobacco: No; Hx Alcohol Use: No Hx Substance Use: No Preferred Language: Togolese Communication Ability: Effective Visual Impairment: No Limitations Hearing Ability: Normal Camera Person Required: No Beliefs That Will Affect Care: None marital status: Current Living Situation: Spouse current occupational status: retired Feels Safe at Home: Yes Childhood Exposure to Second-Hand Smoke: No Diet: regular caffeine: Yes during the past year weight has: remained stable Dental Care, Regularly: Yes Physical Activity Frequency: Does not Exercise Seatbelt Use: always Sunscreen Use: Yes (sometimes ) Assistive Devices: Cane Allergies Allergies Allergy/AdvReac Type Severity Reaction Status Date / Time red yeast rice Allergy Unknown Unknown Verified 04/12/25 12:54 Dctgxdr-WIL-PzC Reductase Allergy Unknown LEG PAINS Verified 04/12/25 12:54 Inhibitor [[place]-Tvd-Vla Reductase Inhibitor] atorvastatin AdvReac Unknown Verified 04/12/25 12:54 simvastatin [From Zocor] AdvReac Unknown Verified 04/12/25 12:54 Home Meds Home Medications Medication Instructions Recorded Confirmed calcium carbonate (Calcium 500) 500 mg PO DAILY 04/11/19 04/14/25 cholecalciferol (vitamin D3) 25 1,000 units PO DAILY 04/11/19 04/14/25 mcg (1,000 unit) capsule vitamins A,C,C-bbvf-sdjpap 4,296 1 cap PO DAILY 06/10/24 11/22/25 mcg-226 mg-90 mg capsule (PreserVision AREDS) mecobalamin (vitamin B12) 1 tab PO DAILY 04/14/25 04/14/25 Previous Rx's Medication Instructions Recorded escitalopram oxalate 10 mg tablet 10 mg PO DAILY #90 tabs 02/19/25 apixaban 5 mg tablet (Eliquis) 5 mg PO BID #60 tabs 04/09/25 metoprolol tartrate 100 mg tablet 150 mg (1.5 x 100 mg) PO BID #90 04/10/25 tabs albuterol sulfate 90 mcg/actuation 1 inh inhalation QID PRN coug #8.5 04/12/25 aerosol inhaler grams Results & Data (ED) Vital Signs Vital Signs - 24 hr 04/14/25 07:15 04/14/25 07:54 04/14/25 07:55 Temperature 36.2 C L Temperature Source Temporal Artery Scan Pulse Rate 56 L 111 H Pulse Rate [Apical] Pulse Rate from SpO2 Sensor Pulse Rhythm Regular Pulse Rhythm [Apical] Pulse Strength [Apical] Respiratory Rate 20 17 Respiratory Effort / Characteristics Non-Labored Spontaneous Respiratory Depth Normal Respiratory Pattern Regular Blood Pressure 118/81 Blood Pressure [Left Arm] Blood Pressure Mean 93 Blood Pressure Mean [Left Arm] Blood Pressure Position Sitting Blood Pressure Position [Left Arm] Pulse Oximetry 97 96 96 Oxygen Delivery Method Room Air Room Air Sepsis Recent Fever Within 48 Hours No Sepsis New/Unexplained Change in Mental Status N/A Sepsis Action Taken by Nursing No Action Required 04/14/25 08:20 04/14/25 08:39 04/14/25 10:00 Temperature Temperature Source Pulse Rate 120 H Pulse Rate [Apical] 115 H 130 H Pulse Rate from SpO2 Sensor Pulse Rhythm Pulse Rhythm [Apical] Pulse Strength [Apical] Respiratory Rate 17 17 Respiratory Effort / Characteristics Non-Labored Spontaneous Non-Labored Spontaneous Respiratory Depth Normal Normal Respiratory Pattern Blood Pressure Blood Pressure [Left Arm] 99/67 L 119/50 L Blood Pressure Mean Blood Pressure Mean [Left Arm] 77 73 Blood Pressure Position Blood Pressure Position [Left Arm] Semi-fowlers Pulse Oximetry 94 96 Oxygen Delivery Method Room Air Room Air Sepsis Recent Fever Within 48 Hours Sepsis New/Unexplained Change in Mental Status Sepsis Action Taken by Nursing 04/14/25 10:01 04/14/25 10:01 04/14/25 10:01 Temperature Temperature Source Pulse Rate Pulse Rate [Apical] Pulse Rate from SpO2 Sensor Pulse Rhythm Pulse Rhythm [Apical] Pulse Strength [Apical] Respiratory Rate Respiratory Effort / Characteristics Respiratory Depth Respiratory Pattern Blood Pressure 119/50 L 119/50 L 119/50 L Blood Pressure [Left Arm] Blood Pressure Mean 60 60 60 Blood Pressure Mean [Left Arm] Blood Pressure Position Blood Pressure Position [Left Arm] Pulse Oximetry Oxygen Delivery Method Sepsis Recent Fever Within 48 Hours Sepsis New/Unexplained Change in Mental Status Sepsis Action Taken by Nursing 04/14/25 10:12 04/14/25 10:21 04/14/25 10:30 Temperature Temperature Source Pulse Rate 150 H 146 H 132 H Pulse Rate [Apical] Pulse Rate from SpO2 Sensor 85 76 92 H Pulse Rhythm Pulse Rhythm [Apical] Pulse Strength [Apical] Respiratory Rate 24 22 39 H Respiratory Effort / Characteristics Respiratory Depth Respiratory Pattern Blood Pressure Blood Pressure [Left Arm] Blood Pressure Mean Blood Pressure Mean [Left Arm] Blood Pressure Position Blood Pressure Position [Left Arm] Pulse Oximetry 96 94 96 Oxygen Delivery Method Sepsis Recent Fever Within 48 Hours Sepsis New/Unexplained Change in Mental Status Sepsis Action Taken by Nursing 04/14/25 10:31 04/14/25 10:31 04/14/25 10:31 Temperature Temperature Source Pulse Rate Pulse Rate [Apical] Pulse Rate from SpO2 Sensor Pulse Rhythm Pulse Rhythm [Apical] Pulse Strength [Apical] Respiratory Rate Respiratory Effort / Characteristics Respiratory Depth Respiratory Pattern Blood Pressure 82/69 L 82/69 L 82/69 L Blood Pressure [Left Arm] Blood Pressure Mean 74 74 74 Blood Pressure Mean [Left Arm] Blood Pressure Position Blood Pressure Position [Left Arm] Pulse Oximetry Oxygen Delivery Method Sepsis Recent Fever Within 48 Hours Sepsis New/Unexplained Change in Mental Status Sepsis Action Taken by Nursing 04/14/25 10:31 04/14/25 10:48 04/14/25 11:00 Temperature Temperature Source Pulse Rate 130 H 115 H Pulse Rate [Apical] Pulse Rate from SpO2 Sensor 98 H Pulse Rhythm Pulse Rhythm [Apical] Pulse Strength [Apical] Respiratory Rate 27 H Respiratory Effort / Characteristics Respiratory Depth Respiratory Pattern Blood Pressure 82/69 L 100/47 L 106/64 Blood Pressure [Left Arm] Blood Pressure Mean 74 78 Blood Pressure Mean [Left Arm] Blood Pressure Position Blood Pressure Position [Left Arm] Pulse Oximetry 96 Oxygen Delivery Method Sepsis Recent Fever Within 48 Hours Sepsis New/Unexplained Change in Mental Status Sepsis Action Taken by Nursing 04/14/25 11:18 04/14/25 11:24 04/14/25 11:36 Temperature Temperature Source Pulse Rate 139 H 138 H 138 H Pulse Rate [Apical] Pulse Rate from SpO2 Sensor 122 H Pulse Rhythm Pulse Rhythm [Apical] Pulse Strength [Apical] Respiratory Rate 30 H Respiratory Effort / Characteristics Respiratory Depth Respiratory Pattern Blood Pressure 102/78 102/78 118/69 Blood Pressure [Left Arm] Blood Pressure Mean 86 Blood Pressure Mean [Left Arm] Blood Pressure Position Blood Pressure Position [Left Arm] Pulse Oximetry 90 Oxygen Delivery Method Sepsis Recent Fever Within 48 Hours Sepsis New/Unexplained Change in Mental Status Sepsis Action Taken by Nursing 04/14/25 11:36 04/14/25 12:02 04/14/25 12:18 Temperature Temperature Source Pulse Rate 125 H 129 H Pulse Rate [Apical] 128 H Pulse Rate from SpO2 Sensor Pulse Rhythm Pulse Rhythm [Apical] Regular Pulse Strength [Apical] Normal Respiratory Rate 18 20 Respiratory Effort / Characteristics Non-Labored Spontaneous Respiratory Depth Normal Respiratory Pattern Regular Blood Pressure 118/69 Blood Pressure [Left Arm] 107/57 L Blood Pressure Mean 84 Blood Pressure Mean [Left Arm] 73 Blood Pressure Position Blood Pressure Position [Left Arm] Sitting Pulse Oximetry 94 98 Oxygen Delivery Method Room Air Sepsis Recent Fever Within 48 Hours Sepsis New/Unexplained Change in Mental Status Sepsis Action Taken by Nursing 04/14/25 12:28 Temperature Temperature Source Pulse Rate 116 H Pulse Rate [Apical] Pulse Rate from SpO2 Sensor Pulse Rhythm Pulse Rhythm [Apical] Pulse Strength [Apical] Respiratory Rate Respiratory Effort / Characteristics Respiratory Depth Respiratory Pattern Blood Pressure 124/65 Blood Pressure [Left Arm] Blood Pressure Mean Blood Pressure Mean [Left Arm] Blood Pressure Position Blood Pressure Position [Left Arm] Pulse Oximetry Oxygen Delivery Method Sepsis Recent Fever Within 48 Hours Sepsis New/Unexplained Change in Mental Status Sepsis Action Taken by Correction Medications Current Medication List: was personally reviewed by me Laboratory Data Attestation: I reviewed the patient's lab results. 04/14/25 07:37 04/14/25 07:37 Lab Results 04/14/25 04/14/25 04/14/25 Range/Units 07:37 07:48 09:25 WBC 10.58 (4.8-10.8) K/ul RBC 4.64 (4.20-5.40) M/uL Hgb 13.5 (12.0-16.0) g/dL POC Hgb 13.6 (12.0-16.0) g/dl Hct 41.9 (37.0-47.0) % POC Hct 40 (37-47) % MCV 90.3 (80.0-100.0) fL MCH 29.1 (25.0-34.0) pg MCHC 32.2 (32.0-36.0) g/dL RDW Std Deviation 47.2 H (36.4-46.3) fL RDW Coeff of Dejah 14.3 (11.5-14.5) % Plt Count 213 (130-400) K/uL MPV 9.4 (9.4-12.4) fL Immature Gran % (Auto) 0.6 % Neut % (Auto) 75.6 % Lymph % (Auto) 16.7 % Stonewall % (Auto) 6.1 % Eos % (Auto) 0.5 % Baso % (Auto) 0.5 % Neut # (Auto) 8.00 H (1.40-6.50) K/uL Lymph # (Auto) 1.77 (1.20-3.40) K/uL [place] # (Auto) 0.65 H (0.11-0.59) K/uL Eos # (Auto) 0.05 (0.00-0.50) K/uL Baso # (Auto) 0.05 (0.00-0.20) K/uL Immature Gran # (Auto) 0.06 (0.01-0.20) K/uL PT 11.0 (9.0-12.0) Seconds INR 1.0 (0.9-1.1) APTT 26 (21-31) Seconds PTT Ratio 1.0 POC Sodium 140 (135-144) mmol/L Sodium 142 (136-145) mmol/L POC Potassium 4.6 (3.3-5.0) mmol/L Potassium 4.7 (3.5-5.1) mmol/L POC Chloride 104 (101-112) mmol/L Chloride 106 (98-107) mmol/L Carbon Dioxide 29 (21-32) mmol/L POC Total CO2 26 (24-31) mmol/L Anion Gap 7 (3-11) POC Anion Gap 16.0 (16-25) mmol/L POC BUN 29 H (7-18) mg/dl BUN 28 H (6-23) mg/dl Creatinine 1.18 (0.6-1.2) mg/dl POC Creatinine 1.4 H (0.6-1.3) mg/dl Est Cr Clr Drug Dosing Not Reportable eGFR 44.15 BUN/Creatinine Ratio 23.7 H (10-20) Glucose 149 H (70-99(Fasting)) mg/dl POC Glucose (other) 141 H (70-99) mg/dl Calcium 8.9 (8.6-10.3) mg/dl POC Ioniz Calcium Annamaria 1.13 (1.12-1.32) mmol/l Total Bilirubin 0.4 (0.2-1.0) mg/dl AST 39 (13-39) U/L ALT 40 (7-52) U/L Alkaline Phosphatase 53 (34-104) U/L Troponin I High Sens 159.7 H* 144.9 H* (0-14) pg/ml Total Protein 5.8 L (6.0-8.3) gm/dl Albumin 3.3 L (3.4-5.0) gm/dl Globulin 2.5 (2.5-4.0) gm/dl Albumin/Globulin Ratio 1.3 (0.9-2) Lipase 45 (11-82) U/L Adenovirus (PCR) (NotDetected) B. pertussis DNA (PCR) (NotDetected) B.parapertussis DNA PCR (NotDetected) C. pneumoniae DNA (PCR) (NotDetected) Coronavirus OC43 (PCR) (NotDetected) Coronavirus HKU1 (PCR) (NotDetected) Coronavirus 229E (PCR) (NotDetected) SARS-CoV-2 (PCR) (NotDetected) Coronavirus NL63 (PCR) (NotDetected) Human Metapneumovir PCR (NotDetected) Influenza Type A (PCR) (NotDetected) Influenza Type B (PCR) (NotDetected) M. pneumoniae (PCR) (NotDetected) Parainfluenza 1 (PCR) (NotDetected) Parainfluenza 2 (PCR) (NotDetected) Parainfluenza 3 (PCR) (NotDetected) Parainfluenza 4 (PCR) (NotDetected) RSV (PCR) (NotDetected) Entero/Rhino (PCR) (NotDetected) 04/14/25 Range/Units 10:03 WBC (4.8-10.8) K/ul RBC (4.20-5.40) M/uL Hgb (12.0-16.0) g/dL POC Hgb (12.0-16.0) g/dl Hct (37.0-47.0) % POC Hct (37-47) % MCV (80.0-100.0) fL MCH (25.0-34.0) pg MCHC (32.0-36.0) g/dL RDW Std Deviation (36.4-46.3) fL RDW Coeff of Dejah (11.5-14.5) % Plt Count (130-400) K/uL MPV (9.4-12.4) fL Immature Gran % (Auto) % Neut % (Auto) % Lymph % (Auto) % [place]wall % (Auto) % Eos % (Auto) % Baso % (Auto) % Neut # (Auto) (1.40-6.50) K/uL Lymph # (Auto) (1.20-3.40) K/uL [place] # (Auto) (0.11-0.59) K/uL Eos # (Auto) (0.00-0.50) K/uL Baso # (Auto) (0.00-0.20) K/uL Immature Gran # (Auto) (0.01-0.20) K/uL PT (9.0-12.0) Seconds INR (0.9-1.1) APTT (21-31) Seconds PTT Ratio POC Sodium (135-144) mmol/L Sodium (136-145) mmol/L POC Potassium (3.3-5.0) mmol/L Potassium (3.5-5.1) mmol/L POC Chloride (101-112) mmol/L Chloride (98-107) mmol/L Carbon Dioxide (21-32) mmol/L POC Total CO2 (24-31) mmol/L Anion Gap (3-11) POC Anion Gap (16-25) mmol/L POC BUN (7-18) mg/dl BUN (6-23) mg/dl Creatinine (0.6-1.2) mg/dl POC Creatinine (0.6-1.3) mg/dl Est Cr Clr Drug Dosing eGFR BUN/Creatinine Ratio (10-20) Glucose (70-99(Fasting)) mg/dl POC Glucose (other) (70-99) mg/dl Calcium (8.6-10.3) mg/dl POC Ioniz Calcium Annamaria (1.12-1.32) mmol/l Total Bilirubin (0.2-1.0) mg/dl AST (13-39) U/L ALT (7-52) U/L Alkaline Phosphatase (34-104) U/L Troponin I High Sens (0-14) pg/ml Total Protein (6.0-8.3) gm/dl Albumin (3.4-5.0) gm/dl Globulin (2.5-4.0) gm/dl Albumin/Globulin Ratio (0.9-2) Lipase (11-82) U/L Adenovirus (PCR) Not Detected (NotDetected) B. pertussis DNA (PCR) Not Detected (NotDetected) B.parapertussis DNA PCR Not Detected (NotDetected) C. pneumoniae DNA (PCR) Not Detected (NotDetected) Coronavirus OC43 (PCR) Not Detected (NotDetected) Coronavirus HKU1 (PCR) Not Detected (NotDetected) Coronavirus 229E (PCR) Not Detected (NotDetected) SARS-CoV-2 (PCR) Not Detected (NotDetected) Coronavirus NL63 (PCR) Not Detected (NotDetected) Human Metapneumovir PCR Not Detected (NotDetected) Influenza Type A (PCR) Not Detected (NotDetected) Influenza Type B (PCR) Not Detected (NotDetected) M. pneumoniae (PCR) Not Detected (NotDetected) Parainfluenza 1 (PCR) Not Detected (NotDetected) Parainfluenza 2 (PCR) Not Detected (NotDetected) Parainfluenza 3 (PCR) Not Detected (NotDetected) Parainfluenza 4 (PCR) Not Detected (NotDetected) RSV (PCR) Not Detected (NotDetected) Entero/Rhino (PCR) DETECTED A (NotDetected) Administered Medications Discontinued Medications Sodium Chloride (Nss) 500 mls @ 999 mls/hr IV .Q31M ONE Stop: 04/14/25 10:43 Last Infusion: 04/14/25 11:24 Dose: Infused Documented By: jordan Admin: 04/14/25 10:43 Dose: 999 mls/hr Documented By: ALEC Sodium Chloride (Nss) 500 mls @ 999 mls/hr IV .Q31M ONE Stop: 04/14/25 12:00 Last Infusion: 04/14/25 12:28 Dose: Infused Documented By: jordan Admin: 04/14/25 11:41 Dose: 999 mls/hr Documented By: jordan Ioversol (Optiray 320 125ml) 119 ml IV ONCE ONE Stop: 04/14/25 08:13 Last Admin: 04/14/25 08:13 Dose: 119 ml Documented By: MYRNA Metoprolol Tartrate (Metoprolol Tartrate 1 Mg/Ml Vial) 5 mg IV NOW STA Stop: 04/14/25 10:14 Last Admin: 04/14/25 10:48 Dose: 5 mg Documented By: PARRISH Metoprolol Tartrate (Metoprolol Tartrate 1 Mg/Ml Vial) 5 mg IV NOW STA Stop: 04/14/25 11:31 Last Admin: 04/14/25 11:36 Dose: 5 mg Documented By: jordan Imaging Data Attestation: I personally reviewed and interpreted this imaging study as follows: My Impression: CTA of the chest was obtained in the emergency department. My interpretation is no free air or definite infiltrate, final report below. Radiologist's Impression: Chest CTA 04/14/25 07:29 Clinical history: Chest pain. Rule out pulmonary embolism Technique: Axial computed tomography images were obtained of the chest after the administration of intravenous contrast according to the CT angiogram protocol Findings: There is no definite sign of pulmonary embolism. There is subsegmental atelectasis in both lower lobes. There is mild atelectasis or scar in the lingula. There is a 4 mm nodular opacity along the left major fissure. There is a small calcified granuloma in the right lower lobe. There is no pleural effusion or pneumothorax. There is no sign of pulmonary fibrosis or other diffuse interstitial process. No endobronchial lesion is seen There is no mediastinal, hilar, or axillary adenopathy. The thoracic aorta appears unremarkable with no sign of aneurysm or dissection. There is no pericardial effusion There is a small hiatal hernia. There are T11, T12, and L1 compression fractures of indeterminate age. No focal osseous lesion is evident Impression: 1. No definite sign of pulmonary embolism 2. Mild bilateral lung base atelectasis 3. Small hiatal hernia 4. T11, T12, and L1 compression fractures of indeterminate age Electronically signed by Praful Bowling 04-14-2025 09:00 AM Discharge Plan Visit Data Chief Complaint: Shortness of Breath/Dyspnea Stated Complaint: SOB ED Provider: Sabino Lam Discharge Problem: Atrial fibrillation with rapid ventricular response, SOB (shortness of breath), Elevated troponin I level Patient Disposition: Being Evaluated by Hospitalist Condition: Fair Forms Stand Alone Forms: My [facility] [place] SET Prescriptions Prescriptions: No Action escitalopram oxalate 10 mg tablet 10 mg PO DAILY Qty: 90 3RF cholecalciferol (vitamin D3) 1,000 unit capsule 1,000 units PO DAILY calcium carbonate [Calcium 500] 500 mg calcium (1,250 mg) tablet,chewable 500 mg PO DAILY albuterol sulfate 90 mcg/actuation HFA aerosol inhaler 1 inh inhalation QID PRN (Reason: coug) Qty: 8.5 2RF PreserVision AREDS 4,296 mcg-226 mg-90 mg capsule 1 cap PO DAILY Eliquis 5 mg Tablet 5 mg PO BID Qty: 60 0RF metoprolol tartrate 100 mg tablet 150 mg PO BID Qty: 90 0RF mecobalamin (vitamin B12) 1 tab PO DAILY Referrals Referrals: Khadijah Alexander MD [Primary Care Provider] -
[2025-04-14 07:52] LABS: Hematocrit (blood only) 41.9 % (37.0-47.0); Hemoglobin 13.5 g/dL (12.0-16.0); Immature Granulocytes # (auto) 0.06 K/uL (0.01-0.20); Immature Granulocytes % (auto) 0.6 %; Mean Corpuscular Hemoglobin 29.1 pg (25.0-34.0); Mean Corpuscular Volume 90.3 fL (80.0-100.0); Platelet Count 213 K/uL (130-400); RDW Standard Deviation 47.2 fL (36.4-46.3); Red Blood Count 4.64 M/uL (4.20-5.40); White Blood Count 10.58 K/ul (4.8-10.8)
[2025-04-14 08:11] LABS: Alanine Aminotransferase 40 U/L (7-52); Albumin Globulin Ratio 1.3 (0.9-2); Albumin Level 3.3 gm/dl (3.4-5.0); Alkaline Phosphatase 53 U/L (34-104); Anion Gap 7 (3-11); Bilirubin,Total 0.4 mg/dl (0.2-1.0); Blood Urea Nitrogen 28 mg/dl (6-23); Calcium 8.9 mg/dl (8.6-10.3); Carbon Dioxide 29 mmol/L (21-32); Chloride 106 mmol/L (98-107); Globulin 2.5 gm/dl (2.5-4.0); Glucose 149 mg/dl (70-99(Fasting)); Lipase 45 U/L (11-82); Potassium 4.7 mmol/L (3.5-5.1); Sodium 142 mmol/L (136-145); Total Protein 5.8 gm/dl (6.0-8.3)
[2025-04-14 08:12] LABS: INR 1.0 (0.9-1.1); Partial Thromboplastin Time 26 Seconds (21-31); Prothrombin Time 11.0 Seconds (9.0-12.0)
[2025-04-14] MEDS: OPTIRAY 320 125ml IV ONE (08:13)
--- NOTE | 2025-04-14 09:01 | CT Scan Report ---
Clinical history: Chest pain. Rule out pulmonary embolism Technique: Axial computed tomography images were obtained of the chest after the administration of intravenous contrast according to the CT angiogram protocol Findings: There is no definite sign of pulmonary embolism. There is subsegmental atelectasis in both lower lobes. There is mild atelectasis or scar in the lingula. There is a 4 mm nodular opacity along the left major fissure. There is a small calcified granuloma in the right lower lobe. There is no pleural effusion or pneumothorax. There is no sign of pulmonary fibrosis or other diffuse interstitial process. No endobronchial lesion is seen There is no mediastinal, hilar, or axillary adenopathy. The thoracic aorta appears unremarkable with no sign of aneurysm or dissection. There is no pericardial effusion There is a small hiatal hernia. There are T11, T12, and L1 compression fractures of indeterminate age. No focal osseous lesion is evident Impression: 1. No definite sign of pulmonary embolism 2. Mild bilateral lung base atelectasis 3. Small hiatal hernia 4. T11, T12, and L1 compression fractures of indeterminate age Electronically signed by Praful Bowling 04-14-2025 09:00 AM
[2025-04-14] MEDS: SODIUM CHLORIDE 0.9% 500 ML IV ONE ×2 (10:43→11:41)
[2025-04-14] MEDS: METOPROLOL TARTRATE 1 MG/ML VIAL IV STA ×2 (10:48→11:36)
[2025-04-14 11:05] LABS: Chlamydia pneumoniae PCR Not Detected (NotDetected); Coronavirus 229E PCR Not Detected (NotDetected); Coronavirus CoV-2 (COVID19)PCR Not Detected (NotDetected); Coronavirus HKU1 PCR Not Detected (NotDetected); Coronavirus NL63 PCR Not Detected (NotDetected); Coronavirus OC43PCR Not Detected (NotDetected); Human Metapneumovirus PCR Not Detected (NotDetected); Parainfluenza Virus 1 PCR Not Detected (NotDetected); Parainfluenza Virus 2 PCR Not Detected (NotDetected); Parainfluenza Virus 3 PCR Not Detected (NotDetected); Parainfluenza Virus 4 PCR Not Detected (NotDetected); Respiratory Syncytial VirusPCR Not Detected (NotDetected); Rhinovirus/Enterovirus PCR DETECTED (NotDetected)
--- NOTE | 2025-04-14 12:05 | History & Physical Report ---
Date of Service April 14, 2025 Assessment & Plan (1) Atrial fibrillation with RVR: (2) Rhinovirus: (3) Elevated troponin: (4) Chronic kidney disease, stage 3: Luis Wen is a pleasant 89-year-old woman with past medical history of recently diagnosed new onset A-fib with RVR on Eliquis, invasive ductal carcinoma of the left breast s/p lumpectomy and 2018, carotid plaque, CKD stage III, hyperlipidemia, allergic rhinitis, osteoporosis, vitamin D deficiency, depression/anxiety, prediabetes. She was recently admitted to the hospital on 04/07 - 04/10 when she was diagnosed with new onset A-fib with RVR and started on metoprolol and Eliquis. She returned to the hospital with cough and shortness of breath, and tested positive for entero-/rhinovirus and was in A-fib RVR again. She was admitted for management of such. #A-fib with RVR | Elevated troponin - Received Lopressor 5 mg IV x 2 and 1 L NSS bolus x 2 in ED. Initial HR in 140-150s, now in 110-120s on admission - Recent echocardiogram on 04/08 with normal LV systolic function, EF 55-60%, mild LVH, mild MR, mild TR, no regional wall motion abnormalities - Troponin elevated at 159.7 on arrival, down trended to 144.9 on repeat. No chest pain. EKG without acute ischemic changes - Continue metoprolol tartrate 150 mg PO BID - Continue Eliquis 5 mg PO BID - No further IV fluids at this time - She became hypotensive in the ED with IV Lopressor, so will defer further IV Lopressor at this time - Give digoxin 0.25 mg IV x 1 now. Monitor HR and consider another dose of digoxin later tonight if needed - Consider cardiology consult if struggling with rate control despite above shanna ures - Monitor on telemetry #Rhinovirus - with ongoing cough. Stable at 98% on room air - Supportive measures with Tylenol PRN fever/pain, albuterol inhaler PRN shortness of breath, Mucinex 1200 mg PO BID - No overt pulmonary edema noted on imaging. Some LE edema is noted on physical exam but patient reports this is her baseline. Will just monitor for now under the assumption her exertional dyspnea is secondary to her rhinovirus infection, but consider a dose of Lasix if persisting or she becomes further volume overloaded given her 2 L boluses of IVF in the ED #[id number] 5.7% in June 2024. BSG 149 on arrival. Monitor BSG on AM BMP, if elevated, will repeat A1c #CKD stage III - renal function at baseline on admission, Cr 1.1. Avoid nephrotoxins #Depression/anxietycontinue escitalopram #Hyperlipidemiadiet controlled, does not tolerate statin therapy #Vitamin D deficiencycontinue cholecalciferol 25 mcg daily VTE PPx: Eliquis Dispo: Admit to med/tele Reviewed prior medical records History of Present Illness Chief Complaint: Shortness of breath Primary Care Provider: Khadijah Alexander MD Bettye is a pleasant 89-year-old woman with past medical history of recently diagnosed new onset A-fib with RVR on Eliquis, invasive ductal carcinoma of the left breast s/p lumpectomy and 2018, carotid plaque, CKD stage III, hyperlipidemia, allergic rhinitis, osteoporosis, vitamin D deficiency, depression/anxiety, prediabetes. She was recently admitted she was recently admitted to the hospital from 04/07 - 04/10 when she was diagnosed with new onset A-fib RVR and was started on metoprolol and Eliquis. She had a follow-up with her PCP on 04/12 and was prescribed an albuterol inhaler as needed for her subacute cough. She presented from home today with shortness of breath and cough. At the time of my exam, the patient was lying in bed in no acute distress. She states she has been feeling well at home, just dealing with this "nagging cough." Last night, she reports she had shortness of breath and used her recently prescribed albuterol inhaler which helped somewhat. This morning, she continued to feel short of breath with exertion which prompted her to return to the ED. She reports that her cough is intermittently productive with white sputum. No hemoptysis. She denies feeling short of breath while resting currently. She denies any chest pain, heart palpitations, or feeling like her heart is racing. She denies abdominal pain, nausea, vomiting, or diarrhea. Patient reports that she took all of her regular morning medications today; no recent change in medications. She does not use supplemental oxygen at baseline. No CPAP at night. Vitals on admission significant for mild hypotension with BP 107/57, A-fib with RVR with HR 128; vitals otherwise stable. Labs on admission are significant for troponin elevated at 159.7 then down trended to 144.9. Respiratory BioFire positive for entero-/rhinovirus. CBC unremarkableno leukocytosis, H&H WNL, platelets WNL. Electrolytes WNL. Renal function WNL. Liver enzymes WNL. Chest CTA on admission with no definite sign of pulmonary embolism, mild bilateral lung base atelectasis, small hiatal hernia, and T11 T12 and L1 compression fractures of indeterminate age. We discussed code status, patient wishes to be a full code. Allergies Allergy/AdvReac Type Severity Reaction Status Date / Time red yeast rice Allergy Unknown Unknown Verified 04/18/25 09:27 Qmzcxrn-[id number]-TeW Reductase Allergy Unknown LEG PAINS Verified 04/18/25 09:27 Inhibitor [Usohxta-Gzx-Vay Reductase Inhibitor] atorvastatin AdvReac Unknown Verified 04/18/25 09:27 simvastatin [From Zocor] AdvReac Unknown Verified 04/18/25 09:27 Home Medications Medication Instructions Recorded Confirmed Type calcium carbonate (Calcium 500) 500 mg PO DAILY 04/11/19 04/18/25 History cholecalciferol (vitamin D3) 25 1,000 units PO DAILY 04/11/19 04/18/25 History mcg (1,000 unit) capsule vitamins A,C,Q-ziqe-wanmjp 4,296 1 cap PO DAILY 11/01/23 04/18/25 History mcg-226 mg-90 mg capsule (PreserVision AREDS) escitalopram oxalate 10 mg tablet 10 mg PO DAILY #90 tabs 02/19/25 04/18/25 Rx apixaban 5 mg tablet (Eliquis) 5 mg PO BID #60 tabs 04/09/25 04/18/25 Rx metoprolol tartrate 100 mg tablet 150 mg (1.5 x 100 mg) PO BID #90 04/10/25 04/18/25 Rx tabs albuterol sulfate 90 mcg/actuation 1 inh inhalation QID PRN coug #8.5 04/12/25 04/18/25 Rx aerosol inhaler grams mecobalamin (vitamin B12) 1 tab PO DAILY 04/14/25 04/18/25 History furosemide 20 mg tablet (Lasix) 40 mg (2 x 20 mg) PO DAILY 7 days 04/20/25 Rx #14 tabs potassium chloride 10 mEq 10 meq PO DAILY 7 days #7 tabs 04/20/25 Rx tablet,extended release Past Med/Surg History Problem List Elevated troponin I level (Acute) SOB (shortness of breath) (Acute) Atrial fibrillation with rapid ventricular response (Acute) Elevated troponin Rhinovirus Atrial fibrillation with RVR Atrial fibrillation Anxiety (Chronic) Vitamin D deficiency (Acute) Tremor (Acute) Solitary pulmonary nodule (Acute) Prediabetes (Acute) Hypercholesterolemia (Acute) Depression (Acute) Allergic rhinitis (Acute) Statin myopathy Chronic kidney disease, stage 3 Medical History Compression fracture of L1 lumbar vertebra 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 Daughter No problems noted. Son No problems noted. Son No problems noted. Son No problems noted. Son No problems noted. Denies family history of Ovarian cancer Prostate cancer Coronary heart disease Colorectal cancer Social History Smoking Status: Never smoker Second Hand Exposure: No; Do You Dip or Chew Tobacco: No; Hx Alcohol Use: No Hx Substance Use: No Preferred Language: Tongan Communication Ability: Effective Visual Impairment: No Limitations Hearing Ability: Normal In House Counsel Required: No Beliefs That Will Affect Care: None marital status: Current Living Situation: Spouse current occupational status: retired Feels Safe at Home: Yes Childhood Exposure to Second-Hand Smoke: No Diet: regular caffeine: Yes during the past year weight has: remained stable Dental Care, Regularly: Yes Physical Activity Frequency: Does not Exercise Seatbelt Use: always Sunscreen Use: Yes (sometimes ) Assistive Devices: Denture - Lower Review of Systems Review of Systems: All systems reviewed & are unremarkable except as noted in HPI & below Respiratory: + cough and + dyspnea on exertion Physical Exam Physical Exam: General: No acute distress, nondiaphoretic, well-developed, well-nourished. Skin: Warm, dry. No rashes noted. 1+ pitting edema in LE bilaterally. Cardiac: Tachycardic rate with irregularly irregular rhythm. No murmurs noted. Pulm: Diminished at bases but otherwise clear to auscultation bilaterally without wheezes, rales or rhonchi. Normal respiratory effort. 98% on room air. Abdominal: Soft, nontender, nondistended. Bowel sounds present. Neuro: A&O x3. No focal neurological deficits. Results & Data Results & Data Vital Signs (Past 12 Hours) Vital Signs Temp Pulse Pulse Resp BP BP Pulse Ox 04/14/25 12:02 128 H 20 107/57 L 98 04/14/25 11:36 125 H 18 118/69 94 04/14/25 11:36 138 H 118/69 04/14/25 11:24 138 H 102/78 04/14/25 11:18 139 H 30 H 102/78 90 04/14/25 11:00 115 H 27 H 106/64 96 04/14/25 10:48 130 H 100/47 L 04/14/25 10:31 82/69 L 04/14/25 10:31 82/69 L 04/14/25 10:31 82/69 L 04/14/25 10:31 82/69 L 04/14/25 10:30 132 H 39 H 96 04/14/25 10:21 146 H 22 94 04/14/25 10:12 150 H 24 96 04/14/25 10:01 119/50 L 04/14/25 10:01 119/50 L 04/14/25 10:01 119/50 L 04/14/25 10:00 130 H 17 119/50 L 96 04/14/25 08:39 115 H 17 99/67 L 94 04/14/25 08:20 120 H 04/14/25 07:55 96 04/14/25 07:54 111 H 17 96 04/14/25 07:15 97.2 F L 56 L 20 118/81 97 O2 Del Method 04/14/25 12:02 Room Air 04/14/25 11:36 04/14/25 11:36 04/14/25 11:24 11/22/25 11:18 04/14/25 11:00 04/14/25 10:48 04/14/25 10:31 04/14/25 10:31 04/14/25 10:31 04/14/25 10:31 04/14/25 10:30 04/14/25 10:21 04/14/25 10:12 04/14/25 10:01 04/14/25 10:01 04/14/25 10:01 04/14/25 10:00 Room Air 04/14/25 08:39 Room Air 04/14/25 08:20 04/14/25 07:55 Room Air 04/14/25 07:54 Room Air 04/14/25 07:15 Laboratory Results Reviewed CBC with differential, coagulation studies, CMP/chemistries, respiratory bio fire Diagnostic Findings Reviewed chest CTA Supervising Physician Co-Signing Physician Notes Attending Attestation & Admit Note: Pt seen/examined, chart reviewed, admit care plan d/w LIBERTAD Ballesteros. I agree w/ the hay components of her admission documentation. 89yo female with recently diagnosed A-fib now on Eliquis, left sided breast cancer in 2018 s/p lumpectomy, CKD stage III, hyperlipidemia, allergic rhinitis, osteoporosis, vitamin D deficiency, depression/anxiety, prediabetes. Hospitalized at [facility] from 04/07 - 04/10 for a.fib with RVR and started on metoprolol and Eliquis. Presents with cough and shortness of breath, and tested positive for rhinovirus. Upon ER presentation today she was in rapid a.fib despite compliance with her metoprolol. Of note - an urgent care visit note from 03/30 states she had had cough/congestion for at least 1.5 weeks; thus, respiratory symptoms have been present since ~late February. PMH/PSH/allergies/meds/sochx - reviewed vitals - tachycardic, BP wnl; o2 sats wnl in room air gen - coughing, nontoxic, awake/alert neck - ?mild JVD heart - tachycardic, s1 s2, irregularly irregular, no obvious murmur lungs - faint rales bases, scant end-exp wheeze scattered b/l, bronchial cough abd - soft NT ND BS+ ext - <1+ edema b/l ankles/feet, pulses b/l feet 2+ labs reviewed imaging reviewed EKG - a.fib with RVR, no ST changes A/P: 1. a.fib with RVR - -s/p IV lopressor in ER with ongoing a.fib RVR and low-normal BPs -would give digoxin load IV now and reassess rates later in the day -may need ongoing digoxin -metoprolol home dose is already high at 150mg BID 2. rhinovirus bronchitis - consider steroid taper; bronchodilators 3. ?decompensated CHF in setting of #1 - consider dose of IV lasix Joseph Davis MD PG Care Time/CCT Total # of Minutes Spent Total Time Spent with Patient: Total time spent is greater than 50% in coordination of care (as documented) at patient's floor/unit and/or counseling patient: Coding Level of Care Code 44403 INT INP/OBS CARE 3/75MIN Diagnoses Atrial fibrillation with RVR I48.91 Rhinovirus B34.8 Elevated troponin R79.89 Stage 3a chronic kidney disease N18.31 Chronic kidney disease stage 3 subtype: stage 3a (GFR 45-59) (4) Chronic kidney disease, stage 3 Chronic kidney disease stage 3 subtype: stage 3a (GFR 45-59) Qualified Code(s): N18.31 - Chronic kidney disease, stage 3a
[2025-04-14] MEDS ORDERED: ALUMINUM/MAGNESIUM SUSP 30 ML UDC PO PRN (13:16)
[2025-04-14] MEDS ORDERED: METOPROLOL TARTRATE 1 MG/ML VIAL IV PRN (13:16)
[2025-04-14] MEDS ORDERED: POLYETHYLENE (MIRALAX) 17 GM PACK PO PRN (13:16)
[2025-04-14] MEDS ORDERED: ACETAMINOPHEN 325 MG TAB PO PRN (13:16)
[2025-04-14] MEDS ORDERED: ONDANSETRON INJ 2 MG/ML 2 ML VIAL IV PRN (13:16)
[2025-04-14] MEDS: Patient's HEIGHT &/or WEIGHT Needed STA (13:48)
[2025-04-14] MEDS: SODIUM CHLORIDE 0.9% 1,000 ML IV SCH (13:48)
[2025-04-14] MEDS: DIGOXIN 250 MCG in SYRINGE 9 ML IV STA (16:16)
[2025-04-14] MEDS: COUGH DROP (SUGAR FREE) LOZ 24 LOZ/1 BOX BUCCAL PRN (18:14)
[2025-04-14] MEDS: ALBUTEROL HFA 8 GM INHALER INH PRN (18:44)
[2025-04-14] MEDS: APIXABAN 5 MG TABLET PO SCH (20:01)
[2025-04-14] MEDS: guaiFENesin 600 MG TABCR PO SCH (20:01)
[2025-04-14] MEDS: METOPROLOL TARTRATE 50 MG TAB PO SCH (20:01)
[2025-04-14 22:39] VITALS: RESP 18
[2025-04-15 08:13] LABS: Hematocrit (blood only) 38.0 % (37.0-47.0); Hemoglobin 12.2 g/dL (12.0-16.0); Mean Corpuscular Hemoglobin 29.3 pg (25.0-34.0); Mean Corpuscular Volume 91.1 fL (80.0-100.0); Platelet Count 180 K/uL (130-400); RDW Standard Deviation 47.7 fL (36.4-46.3); Red Blood Count 4.17 M/uL (4.20-5.40); White Blood Count 9.30 K/ul (4.8-10.8)
[2025-04-15] MEDS: CALCIUM CARBONATE 1250MG TAB PO SCH (08:20)
[2025-04-15] MEDS: CHOLECALCIFEROL 25 MCG (1000 UNITS) TAB PO SCH (08:20)
[2025-04-15] MEDS: ESCITALOPRAM OXALATE 10 MG TAB PO SCH (08:20)
[2025-04-15] MEDS: CYANOCOBALAMIN (B-12) 500 MCG TABLET PO SCH (08:20)
[2025-04-15 08:29] LABS: Anion Gap 3.0 (3-11); Blood Urea Nitrogen 23.0 mg/dl (6-23); Calcium 8.3 mg/dl (8.6-10.3); Carbon Dioxide 31.0 mmol/L (21-32); Chloride 105.0 mmol/L (98-107); Creatinine Clr Calc Pharmacy 31.9 ml/min; Glucose 104.0 mg/dl (70-99(Fasting)); Magnesium 2.0 mg/dl (1.7-2.4); Potassium 4.3 mmol/L (3.5-5.1); Sodium 139.0 mmol/L (136-145)
[2025-04-15 11:41] VITALS: TEMP 97.7; O2SAT 94
[2025-04-15 11:44] VITALS: BP 138/85; PULSE 76
--- NOTE | 2025-04-15 13:32 | Discharge Summary ---
Discharge Summary Date of Service April 15, 2025 Principal Dx & Hospital Course #1 = Principal Diagnosis (1) Atrial fibrillation with RVR: (2) Rhinovirus: (3) Elevated troponin: (4) Chronic kidney disease, stage 3: Luis Wen is a pleasant 89-year-old woman with past medical history of recently diagnosed new onset A-fib with RVR on Eliquis, invasive ductal carcinoma of the left breast s/p lumpectomy and 2018, carotid plaque, CKD stage III, hyperlipidemia, allergic rhinitis, osteoporosis, vitamin D deficiency, depression/anxiety, prediabetes. She was recently admitted to the hospital on 04/07 - 04/10 when she was diagnosed with new onset A-fib with RVR and started on metoprolol and Eliquis. She returned to the hospital with cough and shortness of breath, and tested positive for entero-/rhinovirus and was in A-fib RVR again. She was admitted for management of such. #A-fib with RVR | Elevated troponin - Recent echocardiogram on 04/08 with normal LV systolic function, EF 55-60%, mild LVH, mild MR, mild TR, no regional wall motion abnormalities - Received Lopressor 5 mg IV x 2 and 1 L NSS bolus x 2 in ED. Initial HR in 140-150s, improved to 110-120s. She became hypotensive in the ED with IV Lopressor, so further IV Lopressor was deferred - S/p digoxin 0.25 mg IV x 1. HR improved to 70-80s - Troponin elevated at 159.7 on arrival, down trended to 144.9 on repeat. No chest pain. EKG without acute ischemic changes - Continue metoprolol tartrate 150 mg PO BID - Continue Eliquis 5 mg PO BID - Follow-up with cardiology outpatient as scheduled on 05/01 #Rhinovirus - with ongoing cough. Stable at 98% on room air - Supportive measures with Tylenol PRN fever/pain, albuterol inhaler PRN shortness of breath, Mucinex 1200 mg PO BID - No overt pulmonary edema noted on imaging #[id number] 5.7% in June 2024 #CKD stage III - renal function at baseline, Cr 1.1. Avoid nephrotoxins #Depression/anxietycontinue escitalopram #Hyperlipidemiadiet controlled, does not tolerate statin therapy #Vitamin D deficiencycontinue cholecalciferol 25 mcg daily VTE PPx: Eliquis Dispo: Discharged home 04/15 Notes For Next Care Provider Medication Changes From Visit no changes Admission HPI Per Admitting Provider Bettye is a pleasant 89-year-old woman with past medical history of recently diagnosed new onset A-fib with RVR on Eliquis, invasive ductal carcinoma of the left breast s/p lumpectomy and 2018, carotid plaque, CKD stage III, hyperlipidemia, allergic rhinitis, osteoporosis, vitamin D deficiency, depression/anxiety, prediabetes. She was recently admitted she was recently admitted to the hospital from 04/07 - 04/10 when she was diagnosed with new onset A-fib RVR and was started on metoprolol and Eliquis. She had a follow-up with her PCP on 04/12 and was prescribed an albuterol inhaler as needed for her subacute cough. She presented from home today with shortness of breath and cough. At the time of my exam, the patient was lying in bed in no acute distress. She states she has been feeling well at home, just dealing with this "nagging cough." Last night, she reports she had shortness of breath and used her recently prescribed albuterol inhaler which helped somewhat. This morning, she continued to feel short of breath with exertion which prompted her to return to the ED. She reports that her cough is intermittently productive with white sputum. No hemoptysis. She denies feeling short of breath while resting currently. She denies any chest pain, heart palpitations, or feeling like her heart is racing. She denies abdominal pain, nausea, vomiting, or diarrhea. Patient reports that she took all of her regular morning medications today; no recent change in medications. She does not use supplemental oxygen at baseline. No CPAP at night. Vitals on admission significant for mild hypotension with BP 107/57, A-fib with RVR with HR 128; vitals otherwise stable. Labs on admission are significant for troponin elevated at 159.7 then down trended to 144.9. Respiratory BioFire positive for entero-/rhinovirus. CBC unremarkableno leukocytosis, H&H WNL, platelets WNL. Electrolytes WNL. Renal function WNL. Liver enzymes WNL. Chest CTA on admission with no definite sign of pulmonary embolism, mild bilateral lung base atelectasis, small hiatal hernia, and T11 T12 and L1 compression fractures of indeterminate age. We discussed code status, patient wishes to be a full code. Discharge Exam General: No acute distress, nondiaphoretic, well-developed, well-nourished. Skin: Warm, dry. No rashes noted. 1+ pitting edema in LE bilaterally. Cardiac: A fib wiwth rate in 70s. No murmurs noted. Pulm: Diminished at bases but otherwise clear to auscultation bilaterally without wheezes, rales or rhonchi. Normal respiratory effort. 98% on room air. Abdominal: Soft, nontender, nondistended. Bowel sounds present. Neuro: A&O x3. No focal neurological deficits. Discharge Plan Discharge Items Patient Disposition: Home - Self-Care Reason For Visit: A FIB WITH RVR Discharge Diagnosis: A fib, rhinovirus Condition on Discharge: Fair Activity: Resume your previous activity Non-emergency contact: Primary Care Provider Call non-emergency contact if: you have any medication questions, your symptoms worsen and you have a fever Follow-up/Referrals: Khadijah Alexander MD [Primary Care Provider] - 04/30/25 1:00 pm (Follow-up in 1-2 weeks) Diet: Heart Healthy Addtl Attending Provider Instructions: Bettye, You were admitted to the hospital due to A fib with a rapid ventricular response (RVR). You were also found to have rhinovirus, an upper respiratory tract infection. The rhinovirus infection is likely what caused your A fib RVR to reoccur and also explains your ongoing cough. You were treated with multiple doses of IV medications to get your heart rate back to a normal range. Your heart rate overnight and today has been between 70-80 beats per minute. Rhinovirus can cause symptoms including cough, congestion, runny nose, and mild shortness of breath that can last up to 2 weeks, though the cough may linger even after other symptoms improved. Upon discharge from the hospital: * Continue your metoprolol tartrate 150 mg twice daily. This is to control your heart rate with A fib. * You can use supportive measures at home for your rhinovirus infection. This includes getting plenty of rest to help your body recover, drinking plenty of water to stay hydrated, Tylenol as needed for fever/pain, naaw-hbo-iumjmki cou gh suppressants (such as dextromethorphan) or cough expectorants (such as Mucinex), your albuterol inhaler as needed for shortness of breath, and akpi-zqr-sfohaoz throat lozenges. * Continue your other home medications as prescribed. There have been no changes made to your usual home medication regimen. * Follow-up with your PCP in 1-2 weeks. * Follow-up with cardiology as already scheduled on 05/[address] French. Please return to the hospital if you experience any of the following: Severe or worsening shortness of breath, difficulty breathing, chest pain, heart palpitations, fever of 100.5 F or higher, coughing up blood, new or worsening confusion, passing out, or any other symptoms concerning for you. It was a pleasure taking care of you while you were in the hospital! Pending Studies at Discharge: No Stand-Alone Forms: [facility], Smoking Cessation Medications and DC Order Prescriptions: Continued escitalopram oxalate 10 mg tablet 10 mg PO DAILY Qty: 90 3RF cholecalciferol (vitamin D3) 1,000 unit capsule 1,000 units PO DAILY calcium carbonate [Calcium 500] 500 mg calcium (1,250 mg) tablet,chewable 500 mg PO DAILY albuterol sulfate 90 mcg/actuation HFA aerosol inhaler 1 inh inhalation QID PRN (Reason: coug) Qty: 8.5 2RF PreserVision AREDS 4,296 mcg-226 mg-90 mg capsule 1 cap PO DAILY Eliquis 5 mg Tablet 5 mg PO BID Qty: 60 0RF metoprolol tartrate 100 mg tablet 150 mg PO BID Qty: 90 0RF mecobalamin (vitamin B12) 1 tab PO DAILY Discharge Orders: Discharge Order (Routine); Ordered 04/15/25 Ordered By: Leela Ballesteros Admission Data Admit Date/Time: 04/14/25 12:11 Attending Provider: Mariann Holliday Admit Provider: Joseph Davis Primary Care Provider: Khadijah Alexander Other Providers: Joseph Davis Other Interventions: Discharge Summary Assessment (RN) Last Done: 04/15/25 11:42 Hospital Stay Data Consultations 04/14/25 11:59 ED Decision to Admit Stat Diagnostic Imagining Performed Chest CTA 04/14/25 07:29 Clinical history: Chest pain. Rule out pulmonary embolism Technique: Axial computed tomography images were obtained of the chest after the administration of intravenous contrast according to the CT angiogram protocol Findings: There is no definite sign of pulmonary embolism. There is subsegmental atelectasis in both lower lobes. There is mild atelectasis or scar in the lingula. There is a 4 mm nodular opacity along the left major fissure. There is a small calcified granuloma in the right lower lobe. There is no pleural effusion or pneumothorax. There is no sign of pulmonary fibrosis or other diffuse interstitial process. No endobronchial lesion is seen There is no mediastinal, hilar, or axillary adenopathy. The thoracic aorta appears unremarkable with no sign of aneurysm or dissection. There is no pericardial effusion There is a small hiatal hernia. There are T11, T12, and L1 compression fractures of indeterminate age. No focal osseous lesion is evident Impression: 1. No definite sign of pulmonary embolism 2. Mild bilateral lung base atelectasis 3. Small hiatal hernia 4. T11, T12, and L1 compression fractures of indeterminate age Electronically signed by Praful Bowling 04-14-2025 09:00 AM Pending Results Patient Have Any Pending Studies at Discharge: No Discharge Instructions Given to Patient (Per Discharging Provider) Bettye, You were admitted to the hospital due to A fib with a rapid ventricular response (RVR). You were also found to have rhinovirus, an upper respiratory tract infection. The rhinovirus infection is likely what caused your A fib RVR to reoccur and also explains your ongoing cough. You were treated with multiple doses of IV medications to get your heart rate back to a normal range. Your heart rate overnight and today has been between 70-80 beats per minute. Rhinovirus can cause symptoms including cough, congestion, runny nose, and mild shortness of breath that can last up to 2 weeks, though the cough may linger even after other symptoms improved. Upon discharge from the hospital: * Continue your metoprolol tartrate 150 mg twice daily. This is to control your heart rate with A fib. * You can use supportive measures at home for your rhinovirus infection. This includes getting plenty of rest to help your body recover, drinking plenty of water to stay hydrated, Tylenol as needed for fever/pain, goco-yuo-zkrkrzq cough suppressants (such as dextromethorphan) or cough expectorants (such as Mucinex), your albuterol inhaler as needed for shortness of breath, and mpco-bfq-bpfkdmf throat lozenges. * Continue your other home medications as prescribed. There have been no changes made to your usual home medication regimen. * Follow-up with your PCP in 1-2 weeks. * Follow-up with cardiology as already scheduled on 05/[address] French. Please return to the hospital if you experience any of the following: Severe or worsening shortness of breath, difficulty breathing, chest pain, heart palpitations, fever of 100.5 F or higher, coughing up blood, new or worsening confusion, passing out, or any other symptoms concerning for you. It was a pleasure taking care of you while you were in the hospital! Supervising Physician Co-Signing Physician Notes PA Supervision Note: I did not personally see or examine the patient today, but I verified all hay points of LIBERTAD Ballesteros's assessment and plan with the following exceptions/additions: None Total Time Total Time Spent Total Time Spent (In Minutes): Greater than 30 minutes spent completing this discharge process including direct patient care, medication reconciliation, documentation, review of labs and images, and coordination of care. Coding Level of Care Code 33370 INP/OBS DISCH >30 MIN Diagnoses Atrial fibrillation with RVR I48.91 Rhinovirus B34.8 Elevated troponin R79.89 Stage 3a chronic kidney disease N18.31 Chronic kidney disease stage 3 subtype: stage 3a (GFR 45-59)
--- NOTE | 2025-04-15 19:34 | Electrocardiogram Report ---
Test Reason : Blood Pressure : */* mmHG Vent. Rate : 116 BPM Atrial Rate : * BPM P-R Int : * ms QRS Dur : 74 ms QT Int : 324 ms P-R-T Axes : * -83 250 degrees QTcB Int : 450 ms Atrial fibrillation with rapid ventricular response with premature ventricular or aberrantly conducte d complexes Left axis deviation Pulmonary disease pattern Nonspecific ST and T wave abnormality Abnormal ECG When compared with ECG of 08-Apr-2025 06:25, No significant change was found Confirmed by Misti Zhao ([id number]) on 04/15/2025 7:34:21 PM Referred By: REFERRED SELF Confirmed By: Misti Zhao
== END 2025-04-15 12:12 | disposition home or self-care (01) | DRG 309 ==
LOC: ED 07:10 → 2W 12:11 → SUATTDRO 12:11 → 2W 12:54

== ENCOUNTER 2025-05-04 13:28 | Inpatient (IN) ==
[2025-05-04 14:47] LABS: Hematocrit (blood only) 43.2 % (37.0-47.0); Hemoglobin 13.7 g/dL (12.0-16.0); Immature Granulocytes # (auto) 0.02 K/uL (0.01-0.20); Immature Granulocytes % (auto) 0.2 %; Mean Corpuscular Hemoglobin 29.4 pg (25.0-34.0); Mean Corpuscular Volume 92.7 fL (80.0-100.0); Platelet Count 165 K/uL (130-400); RDW Standard Deviation 51.0 fL (36.4-46.3); Red Blood Count 4.66 M/uL (4.20-5.40); White Blood Count 8.56 K/ul (4.8-10.8)
--- NOTE | 2025-05-04 14:54 | Emergency Department Note ---
Impression & Plan SOB (shortness of breath), Acute on chronic diastolic (congestive) heart failure, CARMEN (acute kidney injury), Atrial fibrillation with rapid ventricular response ED Provider Note CHIEF COMPLAINT: Trouble breathing HISTORY OF PRESENTING ILLNESS: This 89-year-old female patient presents to the emergency department for evaluation of trouble breathing for the past month. She denies any chest pain, just a heaviness in her chest like her lungs are heavy. She states that it is just a "struggle to move," but can't describe what is causing that trouble moving. She just feels like she can't get enough air. 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 She denies any abdominal pain, nausea, or vomiting. She denies any fevers. She had Coronavirus in March, but denies any recent cough or URI symptoms. The patient feels like the swelling in her legs are about baseline for her and she feels like her weight is about stable for her. The patient was seen by her PCP on 04/23/2025. The patient had initial diagnosis of A-fib with RVR on 04/07/2025 and started on metoprolol 150 mg twice a day and Eliquis 5 mg twice a day. Echo 04/08/2020: Left ventricular systolic function normal, no regional wall abnormalities, mild concentric left ventricular hypertrophy, EF 55 to 60%. Concern for HFpEF exacerbation at last visit given increasing weight, symptoms and physical exam findingsstarted on Lasix 20 mg daily 04/18/2025 but increased to 40 mg daily 04/20/2025 with KCl supplementation. The patient then saw cardiology on 05/01/2025 and her metoprolol dose was decreased to 100 mg twice a day due to significant daytime fatigue and lack of energy. The patient was to continue her Lasix 20 mg once a day and potassium 10 meq once a day. She states that her dry weight is 162 pounds and trigger weight of 265 pounds. REVIEW OF SYSTEMS: See HPI for pertinent positives and pertinent negatives. ALLERGIES: See below MEDICATIONS: See below PAST MEDICAL HISTORY: See below PHYSICAL EXAM: VITALS: Vitals are noted on the nurse's note and reviewed by myself. GENERAL: Non toxic, in no acute distress, non-diaphoretic. SKIN: Capillary refill <2 sec. EYES: PERRLA. EOMI. Conjunctivae without injection, sclerae without icterus. NOSE: Patent without discharge. MOUTH: Mucous membranes moist. Uvula midline. Airway patent. NECK: Supple without nuchal rigidity. HEART: Irregularly irregular rhythm in RVR without murmurs gallops or rubs. LUNGS: Clear to auscultation bilaterally without wheezes, rales or rhonchi. No retractions or accessory muscle use. ABDOMEN: Positive bowel sounds x 4. Normal tympanic percussion. Soft, nontender to palpation. No masses or hepatosplenomegaly. Duarte sign negative. No CVA tenderness. No guarding, rigidity, or rebound tenderness. No focal RLQ or LLQ tenderness. MUSCULOSKELETAL: The patient has mild edema of the bilateral lower extremities, but no pitting. No erythema, warmth, or cording. Peripheral pulses 2+ and equal in the bilateral upper and lower extremities. NEURO: Patient was alert and oriented. No focal neurological deficits. DIFFERENTIAL DIAGNOSIS: Differential diagnosis includes URI, bronchitis, pneumonia, pneumothorax, hemothorax, PE, TX, pericarditis, myocarditis, airway obstruction, aspiration, pulmonary edema, asthma, COPD, CHF, pleurisy, metabolic acidosis, anemia, neoplasm, or others. ED COURSE AND MEDICAL DECISION MAKING: MEDICATIONS GIVEN: 250 mL normal saline solution bolus. Lopressor 5 mg IV x 2. Magnesium 2 g IV. Lasix 20 mg IV. MONITOR: Continuous electronic device monitor: Order was placed for continuous electronic device monitor. Patient was placed on the electronic device monitor and continuous pulse ox. Patient was noted to be in A-fib at an initial rate of 90 bpm per my interpretation. EKG: EKG was interpreted by myself as A-fib with RVR at 106 bpm with no acute ST or T wave changes. INTERPRETATION OF LABS: I interpreted the labs with full lab results as below in the lab section of this note. Laboratory results pertinent to the emergent complaint are discussed in the MDM section below. The patient was advised to follow up with their PCP and/or specialist(s) for further outpatient monitoring and management of any abnormal results. INTERPRETATION OF IMAGING: Imaging studies were interpreted by myself and read by radiology as per the imaging section of this note. The patient was advised to follow up with their PCP and/or specialist(s) for further outpatient management of any non-emergent abnormal findings. Chest x-ray negative for acute cardiopulmonary etiology. CT of the chest with IV contrast showed no evidence for PE or pneumonia. There are small pleural effusions as well as pulmonary edema. Cardiomegaly with prominent enlargement of the right cardiac chambers as well as the pulmonary artery suggesting underlying pulmonary hypertension. EXTERNAL RECORDS REVIEWED: I reviewed the patient's most recent admission and PCP office visit note as summarized above. CONSULTATIONS: On-call hospitalist CRITICAL CARE: I have personally spent 35 minutes of critical care time in the direct management of this patient. This includes bedside care, interpretation of diagnostic studies, and testing, discussion with consultants, patient, and family members, and other required patient management activities. This 35 minutes is in excess of all separately billable procedures. MDM SUMMARY: The patient was seen during a time of extreme volume and extreme acuity. Nursing triage protocols were initiated with IV lock, labs, and/or imaging studies conducted by protocol in the triage area. The patient was initially evaluated in a triage room and then re-evaluated once they were taken back to an exam room. The patient has had worsening shortness of breath over the past month. She has been seen by her PCP and cardiology after a new diagnosis of A- fib with RVR. The patient is now on metoprolol, Eliquis, and Lasix due to her history of CHF as well. She feels like her weight and swelling has been stable with no change in her shortness of breath with adjustments of her medications. The patient was given 250 mL normal saline solution bolus after her IV contrast. White blood cell count normal at 8.56. Hemoglobin normal at 13.7. Platelet count normal at 165. INR 1.2 and PT 12.4. Creatinine elevated 1.51 and BUN 35. Glucose 122, but CMP otherwise without concerning findings. Magnesium normal at 2.3. High-sensitivity troponin normal. BNP elevated at 726. COVID, RSV, and influenza were negative. Chest x-ray negative for acute cardiopulmonary etiology. CT of the chest with IV contrast showed no evidence for PE or pneumonia. There are small pleural effusions as well as pulmonary edema. Cardiomegaly with prominent enlargement of the right cardiac chambers as well as the pulmonary artery suggesting underlying pulmonary hypertension. The patient's heart rate was initially in the low 100s, but did increase throughout her stay. She ranged between the 110s to the 130s. I had a meaningful discussion about this patient with Dr. Fink who agrees with my assessment and the treatment plan. The patient was given Lopressor 5 mg IV x 2, but a third dose was not given due to a drop in her blood pressure. The patient was also given magnesium 2 g IV to help with rate control. After discussion with the on-call hospitalist, the patient was given Lasix 20 mg IV as well. Due to the patient's persisting shortness of breath as well as her A-fib with RVR and poor rate control, the patient will be admitted for further evaluation and treatment. I spoke with the on-call hospitalist who agreed to admit the patient for further management. Please refer to their dictation for further details. The patient's care was transferred in stable condition. DIAGNOSIS: Shortness of breath A-fib with RVR CHF Acute on chronic renal injury Past Med/Surg History Problem List (Updated 05/05/25 @ 00:22 by Jannie Hall PA-C) Atrial fibrillation with rapid ventricular response (Acute) Mucus plugging of bronchi CARMEN (acute kidney injury) (Acute) Acute on chronic diastolic (congestive) heart failure (Acute) SOB (shortness of breath) (Acute) Atrial fibrillation Anxiety (Chronic) Vitamin D deficiency (Acute) Tremor (Acute) Solitary pulmonary nodule (Acute) Prediabetes (Acute) Depression (Acute) Allergic rhinitis (Acute) Statin myopathy Chronic kidney disease, stage 3 Medical History Hypercholesterolemia Atrial fibrillation with rapid ventricular response Compression fracture of L1 lumbar vertebra 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 Daughter No problems noted. Son No problems noted. Son No problems noted. Son No problems noted. Son No problems noted. Denies family history of Ovarian cancer Prostate cancer Coronary heart disease Colorectal cancer Social History Smoking Status: Never smoker Second Hand Exposure: No; Do You Dip or Chew Tobacco: No; Hx Alcohol Use: No Hx Substance Use: No Preferred Language: Mac[place] Communication Ability: Effective Visual Impairment: No Limitations Hearing Ability: Normal Skin Grader Required: No Beliefs That Will Affect Care: None marital status: Current Living Situation: Spouse current occupational status: retired Feels Safe at Home: Yes Safety Concerns: Feels Safe At This Time Childhood Exposure to Second-Hand Smoke: No Diet: regular caffeine: Yes during the past year weight has: remained stable Dental Care, Regularly: Yes Physical Activity Frequency: Does not Exercise Seatbelt Use: always Sunscreen Use: Yes (sometimes ) Assistive Devices: Denture - Lower Assistive Devices Comment: partial lower denture Allergies Allergies Allergy/AdvReac Type Severity Reaction Status Date / Time red yeast rice Allergy Unknown CAN'T Verified 05/04/25 17:37 REMEMBER atorvastatin AdvReac Intermediate LEG PAINS Verified 05/04/25 17:37 simvastatin [From Zocor] AdvReac Intermediate LEG PAINS Verified 05/04/25 17:37 Jfpfstk-UFT-PsR Reductase AdvReac Intermediate LEG PAINS Verified 05/04/25 17:37 Inhibitor [Hpwbjcq-Ekl-Jae Reductase Inhibitor] Home Meds Home Medications Medication Instructions Recorded Confirmed calcium carbonate (Calcium 500) 500 mg PO DAILY 04/11/19 05/04/25 cholecalciferol (vitamin D3) 25 1,000 units PO DAILY 04/11/19 05/04/25 mcg (1,000 unit) capsule vitamins A,C,U-lbav-yxjozd 4,296 1 cap PO DAILY 11/01/23 05/04/25 mcg-226 mg-90 mg capsule (PreserVision AREDS) cyanocobalamin (vitamin B-12) 1,000 mcg PO DAILY 05/04/25 05/04/25 1,000 mcg tablet (Vitamin B-12) Previous Rx's Medication Instructions Recorded escitalopram oxalate 10 mg tablet 10 mg PO DAILY #90 tabs 02/19/25 apixaban 5 mg tablet (Eliquis) 5 mg PO BID #60 tabs 04/09/25 albuterol sulfate 90 mcg/actuation 1 inh inhalation QID PRN coug #8.5 11/20/25 aerosol inhaler grams metoprolol tartrate 100 mg tablet 100 mg PO BID #180 tabs 05/01/25 furosemide 20 mg tablet 20 mg PO DAILY #30 tabs 05/04/25 potassium chloride 10 mEq 10 meq PO DAILY #30 tabs 05/04/25 tablet,extended release Results & Data (ED) Vital Signs Vital Signs - 24 hr 05/04/25 13:33 05/04/25 15:28 05/04/25 15:45 Temperature 36.5 C Temperature Source Temporal Artery Scan Pulse Rate 93 H 114 H Pulse Rate [Right Finger] 117 H Respiratory Rate 16 18 Respiratory Effort / Characteristics Non-Labored Spontaneous Non-Labored Respiratory Depth Normal Normal Respiratory Pattern Regular Blood Pressure 106/66 Blood Pressure [Left Arm] 113/90 Blood Pressure Mean 79 Blood Pressure Mean [Left Arm] 97 Pulse Oximetry 97 91 Oxygen Delivery Method Room Air Room Air Sepsis Recent Fever Within 48 Hours No Sepsis New/Unexplained Change in Mental Status No Sepsis Action Taken by Nursing No Action Required 05/04/25 17:00 05/04/25 17:02 05/04/25 17:36 Temperature Temperature Source Pulse Rate 129 H Pulse Rate [Right Finger] 120 H Respiratory Rate 20 Respiratory Effort / Characteristics Non-Labored Respiratory Depth Normal Shallow Respiratory Pattern Tachypnea Blood Pressure 102/73 Blood Pressure [Left Arm] 110/80 Blood Pressure Mean Blood Pressure Mean [Left Arm] 90 Pulse Oximetry 95 Oxygen Delivery Method Room Air Room Air Sepsis Recent Fever Within 48 Hours Sepsis New/Unexplained Change in Mental Status Sepsis Action Taken by Nursing 05/04/25 17:59 05/04/25 18:03 05/04/25 18:36 Temperature Temperature Source Pulse Rate 122 H 131 H 121 H Pulse Rate [Right Finger] Respiratory Rate Respiratory Effort / Characteristics Respiratory Depth Respiratory Pattern Blood Pressure 124/93 126/99 125/95 Blood Pressure [Left Arm] Blood Pressure Mean Blood Pressure Mean [Left Arm] Pulse Oximetry Oxygen Delivery Method Sepsis Recent Fever Within 48 Hours Sepsis New/Unexplained Change in Mental Status Sepsis Action Taken by Nursing 05/04/25 18:48 Temperature Temperature Source Pulse Rate Pulse Rate [Right Finger] 121 H Respiratory Rate 20 Respiratory Effort / Characteristics Respiratory Depth Normal Respiratory Pattern Blood Pressure Blood Pressure [Left Arm] 125/95 Blood Pressure Mean Blood Pressure Mean [Left Arm] 105 Pulse Oximetry 96 Oxygen Delivery Method Room Air Sepsis Recent Fever Within 48 Hours Sepsis New/Unexplained Change in Mental Status Sepsis Action Taken by Nursing Laboratory Data 05/04/25 14:32 05/04/25 14:32 Lab Results 05/04/25 05/04/25 Range/Units 14:32 15:26 WBC 8.56 (4.8-10.8) K/ul RBC 4.66 (4.20-5.40) M/uL Hgb 13.7 (12.0-16.0) g/dL Hct 43.2 (37.0-47.0) % MCV 92.7 (80.0-100.0) fL MCH 29.4 (25.0-34.0) pg MCHC 31.7 L (32.0-36.0) g/dL RDW Std Deviation 51.0 H (36.4-46.3) fL RDW Coeff of Dejah 15.0 H (11.5-14.5) % Plt Count 165 (130-400) K/uL MPV 9.7 (9.4-12.4) fL Immature Gran % (Auto) 0.2 % Neut % (Auto) 70.5 % Lymph % (Auto) 18.3 % [place] % (Auto) 10.4 % Eos % (Auto) 0.1 % Baso % (Auto) 0.5 % Neut # (Auto) 6.03 (1.40-6.50) K/uL Lymph # (Auto) 1.57 (1.20-3.40) K/uL [place] # (Auto) 0.89 H (0.11-0.59) K/uL Eos # (Auto) 0.01 (0.00-0.50) K/uL Baso # (Auto) 0.04 (0.00-0.20) K/uL Immature Gran # (Auto) 0.02 (0.01-0.20) K/uL PT 12.4 H (9.0-12.0) Seconds INR 1.2 H (0.9-1.1) APTT 26 (21-31) Seconds PTT Ratio 1.0 Sodium 140 (136-145) mmol/L Potassium 4.0 (3.5-5.1) mmol/L Chloride 102 (98-107) mmol/L Carbon Dioxide 32 (21-32) mmol/L Anion Gap 6 (3-11) BUN 35 H (6-23) mg/dl Creatinine 1.51 H (0.6-1.2) mg/dl Est Cr Clr Drug Dosing Not Reportable eGFR 32.84 BUN/Creatinine Ratio 23.2 H (10-20) Glucose 122 H (70-99(Fasting)) mg/dl Calcium 9.0 (8.6-10.3) mg/dl Magnesium 2.3 (1.7-2.4) mg/dl Total Bilirubin 0.7 (0.2-1.0) mg/dl AST 26 (13-39) U/L ALT 29 (7-52) U/L Alkaline Phosphatase 56 (34-104) U/L Troponin I High Sens 12.3 (0-14) pg/ml B-Natriuretic Peptide 726 H (0-100) pg/ml Total Protein 6.1 (6.0-8.3) gm/dl Albumin 3.2 L (3.4-5.0) gm/dl Globulin 2.9 (2.5-4.0) gm/dl Albumin/Globulin Ratio 1.1 (0.9-2) SARS-CoV-2 (PCR) NEGATIVE (Negative) Influenza Type A (PCR) Negative (Neg) Influenza Type B (PCR) Negative (Neg) RSV (RT-PCR) Negative (Neg) Administered Medications Apixaban (Apixaban 5 Mg Tablet) 5 mg PO BID [facility] Stop: 06/03/25 20:59 Last Admin: 05/04/25 21:34 Dose: 5 mg Documented By: alt Guaifenesin (Guaifenesin 600 Mg Tabcr) 1,200 mg PO Q12 [facility] Stop: 06/03/25 20:59 Last Admin: 05/04/25 21:33 Dose: 1,200 mg Documented By: alt Amiodarone HCl/Dextrose (Nexterone / D5w) 360 mg in 200 mls @ 16.667 mls/hr IV .Q12H [facility] Stop: 06/04/25 00:59 Last Admin: 05/05/25 01:02 Dose: 0.5 mg/min, 16.7 mls/hr Documented By: eula Co-signed By: PARRISH Metoprolol Succinate (Metoprolol Succ 50mg Ext Rel Tab) 100 mg PO BID [facility] Stop: 06/03/25 20:59 Last Admin: 05/04/25 21:34 Dose: 100 mg Documented By: eula Potassium Chloride (Potassium Chloride Crtab 20 Meq Tabcr) 20 meq PO QAM [facility] Stop: 06/03/25 20:46 Last Admin: 05/04/25 21:33 Dose: 20 meq Documented By: eula Sodium Chloride (Sodium Chlor 7% 4 Ml Neb) 4 ml NEB BIDR [facility] Stop: 06/03/25 18:49 Last Admin: 05/05/25 00:05 Dose: 4 ml Documented By: EML Discontinued Medications Furosemide (Furosemide Inj 20 Mg/2 Ml Vial) 20 mg IV ONE ONE Stop: 05/04/25 18:16 Last Admin: 05/04/25 18:49 Dose: 20 mg Documented By: garrett Furosemide (Furosemide Inj 20 Mg/2 Ml Vial) 20 mg IV ONE ONE Stop: 05/04/25 18:46 Last Admin: 05/04/25 18:51 Dose: 20 mg Documented By: garrett Sodium Chloride (Nss) 250 mls @ 999 mls/hr IV .Q16M ONE Stop: 05/04/25 15:38 Last Infusion: 05/04/25 17:23 Dose: Infused Documented By: garrett Admin: 05/04/25 16:51 Dose: 999 mls/hr Documented By: garrett Magnesium Sulfate/Dextrose (Magnesium Sulfate / D5w) 1 gm in 100 mls @ 200 mls/hr IV Q30M [facility] Stop: 05/04/25 18:22 Last Infusion: 05/04/25 20:57 Dose: Infused Documented By: eula Admin: 05/04/25 19:37 Dose: 200 mls/hr Documented By: svetlana Infusion: 05/04/25 19:19 Dose: Infused Documented By: svetlana Admin: 05/04/25 18:49 Dose: 200 mls/hr Documented By: garrett Digoxin 250 mcg/ Syringe 10 mls @ 2 mls/min IV NOW STA Stop: 05/04/25 18:52 Last Admin: 05/04/25 20:40 Dose: Not Given Documented By: eula Amiodarone HCl/Dextrose (Nexterone / D5w) 150 mg in 100 mls @ 600 mls/hr IV NOW STA Stop: 05/04/25 18:59 Last Infusion: 05/04/25 19:56 Dose: Infused Documented By: svetlana Co-signed By: DC Admin: 05/04/25 19:37 Dose: 600 mls/hr Documented By: svetlana Co-signed By: DC Amiodarone HCl/Dextrose (Nexterone / D5w) 360 mg in 200 mls @ 33.333 mls/hr IV ONE ONE Stop: 05/05/25 01:00 Last Admin: 05/04/25 19:59 Dose: 1 mg/min, 33.3 mls/hr Documented By: svetlana Co-signed By: DC Ioversol (Optiray 320 125ml) 115 ml IV ONCE ONE Stop: 05/04/25 16:00 Last Admin: 05/04/25 15:59 Dose: 115 ml Documented By: MARTY Metoprolol Tartrate (Metoprolol Tartrate 1 Mg/Ml Vial) 5 mg IV Q5M PRN PRN Reason: Tachycardia Stop: 06/03/25 17:21 Last Admin: 05/04/25 17:59 Dose: 5 mg Documented By: garrett Admin: 05/04/25 17:36 Dose: 5 mg Documented By: garrett Miscellaneous (Patient's Height &/Or Weight Needed) 1 each N/A Q2H STA Stop: 05/04/25 18:51 Last Admin: 05/04/25 20:38 Dose: 1 each Documented By: eula Imaging Data Radiologist's Impression: Chest X-Ray 05/04/25 13:36 XR chest 1V not portable CLINICAL HISTORY: Chest pain, nonspecific COMPARISON STUDY: Chest radiograph April 12, 2025. Chest CT April 14, 2025. FINDINGS: Lung volumes are normal. There is no consolidation to suggest pneumonia. Lower lungs interstitial thickening is unchanged. There is no pneumothorax or pleural effusion. Cardiomegaly is again noted. Mediastinal contours are normal. There is no evidence for pulmonary edema. IMPRESSION: No acute cardiopulmonary findings. No change in appearance of the chest. ACT 112: Negative or not required by law. Electronically signed by: Tho Clifford M.D. 05/04/2025 3:12 PM Chest CTA 05/04/25 15:23 CT pulmonary angiogram with IV contrast History: Shortness of breath COMPARISON: 04/14/2025 TECHNIQUE: CT angiography of the chest was performed without IV contrast followed by IV contrast, including 3D post processing CTA image reconstruction. Dose reduction techniques were achieved by using automatic exposure control and/or adjustment of mA and/or kV according to patient size and/or use of iterative reconstruction technique. FINDINGS: Diagnostic quality: Adequate There is no evidence for pulmonary embolism. The heart is enlarged. There is asymmetric enlargement of the right cardiac chambers. The pulmonary artery is enlarged measuring 3.1 cm in diameter. There is no pericardial effusion. There are no abnormally enlarged hilar or mediastinal lymph nodes. The central tracheobronchial tree is clear. Small bilateral pleural effusions. Diffuse interstitial and alveolar pulmonary edema throughout the lung bases. Scattered endobronchial mucous plugging and bronchial wall thickening in the lingula seen. Limited visualized upper abdomen. No destructive osseous changes are seen. IMPRESSION: No evidence for pulmonary embolism. Small pleural effusions, as well as pulmonary edema are present. Cardiomegaly with prominent enlargement of the right cardiac chambers as well as the pulmonary artery suggesting underlying pulmonary hypertension. Electronically signed by Amadeo Villafuerte 05-04-2025 4:22 PM Discharge Plan Visit Data Chief Complaint: Respiratory Problems Stated Complaint: CANT BREATHE ED Provider: Blanco Fink ED Midlevel Provider: Jannie Hall Discharge Problem: SOB (shortness of breath), Acute on chronic diastolic (congestive) heart failure, CARMEN (acute kidney injury), Atrial fibrillation with rapid ventricular response Patient Disposition: Admitted As Inpatient Condition: Fair Discharge Instructions Interventions: ED Discharge Assessment Last Done: 05/04/25 20:15
[2025-05-04 15:04] LABS: Alanine Aminotransferase 29 U/L (7-52); Albumin Globulin Ratio 1.1 (0.9-2); Albumin Level 3.2 gm/dl (3.4-5.0); Alkaline Phosphatase 56 U/L (34-104); Anion Gap 6 (3-11); Bilirubin,Total 0.7 mg/dl (0.2-1.0); Blood Urea Nitrogen 35 mg/dl (6-23); Calcium 9.0 mg/dl (8.6-10.3); Carbon Dioxide 32 mmol/L (21-32); Chloride 102 mmol/L (98-107); Globulin 2.9 gm/dl (2.5-4.0); Glucose 122 mg/dl (70-99(Fasting)); Potassium 4.0 mmol/L (3.5-5.1); Sodium 140 mmol/L (136-145); Total Protein 6.1 gm/dl (6.0-8.3)
--- NOTE | 2025-05-04 15:15 | XRay Report ---
XR chest 1V not portable CLINICAL HISTORY: Chest pain, nonspecific COMPARISON STUDY: Chest radiograph April 12, 2025. Chest CT April 14, 2025. FINDINGS: Lung volumes are normal. There is no consolidation to suggest pneumonia. Lower lungs inters titial thickening is unchanged. There is no pneumothorax or pleural effusion. Cardiomegaly is again n oted. Mediastinal contours are normal. There is no evidence for pulmonary edema. IMPRESSION: No acute cardiopulmonary findings. No change in appearance of the chest. ACT 112: Negative or not required by law. Electronically signed by: Tho Clifford M.D. 05/04/2025 3:12 PM
[2025-05-04 15:38] LABS: INR 1.2 (0.9-1.1); Partial Thromboplastin Time 26 Seconds (21-31); Prothrombin Time 12.4 Seconds (9.0-12.0)
--- NOTE | 2025-05-04 15:43 | Electrocardiogram Report ---
Test Reason : Blood Pressure : */* mmHG Vent. Rate : 106 BPM Atrial Rate : * BPM P-R Int : * ms QRS Dur : 70 ms QT Int : 282 ms P-R-T Axes : * -87 244 degrees QTcB Int : 374 ms Atrial fibrillation with rapid ventricular response with premature ventricular or aberrantly conducte d complexes Left axis deviation Pulmonary disease pattern Nonspecific T wave abnormality Abnormal ECG When compared with ECG of 14-Apr-2025 07:30, Nonspecific T wave abnormality, worse in Anterolateral leads Confirmed by Clyde Chaney ([id number]) on 05/04/2025 3:42:53 PM Referred By: Confirmed By: Clyde Chaney
[2025-05-04] MEDS: OPTIRAY 320 125ml IV ONE (15:59)
--- NOTE | 2025-05-04 16:23 | CT Scan Report ---
CT pulmonary angiogram with IV contrast History: Shortness of breath COMPARISON: 04/14/2025 TECHNIQUE: CT angiography of the chest was performed without IV contrast followed by IV contrast, including 3D post processing CTA image reconstruction. Dose reduction techniques were achieved by using automatic exposure control and/or adjustment of mA and/or kV according to patient size and/or use of iterative reconstruction technique. FINDINGS: Diagnostic quality: Adequate There is no evidence for pulmonary embolism. The heart is enlarged. There is asymmetric enlargement of the right cardiac chambers. The pulmonary artery is enlarged measuring 3.1 cm in diameter. There is no pericardial effusion. There are no abnormally enlarged hilar or mediastinal lymph nodes. The central tracheobronchial tree is clear. Small bilateral pleural effusions. Diffuse interstitial and alveolar pulmonary edema throughout the lung bases. Scattered endobronchial mucous plugging and bronchial wall thickening in the lingula seen. Limited visualized upper abdomen. No destructive osseous changes are seen. IMPRESSION: No evidence for pulmonary embolism. Small pleural effusions, as well as pulmonary edema are present. Cardiomegaly with prominent enlargement of the right cardiac chambers as well as the pulmonary artery suggesting underlying pulmonary hypertension. Electronically signed by Amadeo Villafuerte 05-04-2025 4:22 PM
[2025-05-04 16:25] LABS: Influenza A virus by PCR Negative (Neg); Influenza B virus by PCR Negative (Neg); SARS CoV2 RNA(COVID-19) Ceph NEGATIVE (Negative)
[2025-05-04] MEDS: SODIUM CHLORIDE 0.9% 250 ML IV ONE (16:51)
[2025-05-04] MEDS: METOPROLOL TARTRATE 1 MG/ML VIAL IV PRN (17:36)
[2025-05-04 17:43] LABS: Magnesium 2.3 mg/dl (1.7-2.4)
--- NOTE | 2025-05-04 18:28 | History & Physical Report ---
Date of Service May 04, 2025 Assessment & Plan (1) Atrial fibrillation with rapid ventricular response: (2) Acute on chronic diastolic (congestive) heart failure: (3) CARMEN (acute kidney injury): (4) Mucus plugging of bronchi: (5) Atrial fibrillation: (6) Chronic kidney disease, stage 3: Plan Bettye is a pleasant 89-year-old woman with past medical history of recently diagnosed Afib, CKD stage III, hyperlipidemia, and prediabetes. She was recently admitted to the hospital on 04/07 - 04/10 when she was diagnosed with new onset A-fib with RVR and started on metoprolol and Eliquis. She was again admitted 04/14-04/15 with entero-/rhinovirus and was in A-fib RVR again. She was excessively tired on metoprolol 150 mg bid so the dose was reduced to 100 mg bid on 05/01 by cardiology. She comes back in with dyspnea and afib with RVR. Reviewed last TTE 04/08 she had normal LV function EF 55-60% no rwma's, mild MR and mild TR, mild conc LVH, RV not well seen and PA not visualized, not volume overloaded at the time of that study CTA chest in ED was negative for PE but did show mucus plugging, pulmonary edema and small pleural effusions, and signs of pulmonary hypertension with dilated PA. #A-fib with RVR - recent reduction in metoprolol dose for excessive tiredness on 150 bid. Hypotension after metoprolol IV 5 mg x 2 (also happened last admission) #Acute on chronic diastolic heart failure -diurese - lasix 40 mg IV now -resume metoprolol XL 100 mg bid -ordered amiodarone bolus and drip since she did not tolerate or respond to IV metoprolol, same as last admission -IV magnesium. Oral potassium now and 20 meq daily. -continue apixaban - has been consistently anticoagulated for a month -low salt diet, daily weights, I/Os -referral to CHF clinic -consult cardiology in AM -admit to PCU/tele #CARMEN on CKD-3 - Cr up to 1.5. Possibly prerenal / hypoperfusion from AF with RVR. Appears volume overloaded -treat acute cardiac conditions, avoid nephrotoxins, monitor UOP and Cr. 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 Resultant of recent rhinovirus bronchitis -saline nebs, acapella, guaifenesin, mobility #Depression/anxietycontinue escitalopram #Hyperlipidemiadiet controlled, does not tolerate statin therapy #Vitamin D deficiencycontinue cholecalciferol 25 mcg daily VTE PPx: Godfrey Full code Updated her son in the room 05/04 History of Present Illness Chief Complaint: shortness of breath Primary Care Provider: Khadijah Alexander MD 89 y/o recently diagnosed afib late fall she had coronavirus infection. recovered from that then had new onset afib. readmitted shortly after with rhinovirus and rapid afib. 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 Awoke early this 3 AM with shortness of breath and rapid heart beat. Has had ongoing dyspnea these weeks. Is no longer coughing or wheezing from viral infections. Leg edema did improve after starting lasix 20 mg daily but persists and she doesn't notice much increase in UOP after dose. Didn't take dose today because she ran out of potassium. In ED in rapid afib rates from 120-150. Hypotension after metoprolol 5 mg IV x 2 doses with no improvement in rate. She feels some chest heaviness but no pain. Allergies Allergy/AdvReac Type Severity Reaction Status Date / Time red yeast rice Allergy Unknown CAN'T Verified 05/04/25 17:37 REMEMBER atorvastatin AdvReac Intermediate LEG PAINS Verified 05/04/25 17:37 simvastatin [From Zocor] AdvReac Intermediate LEG PAINS Verified 05/04/25 17:37 Mbkrgkb-NFV-JtR Reductase AdvReac Intermediate LEG PAINS Verified 05/04/25 17:37 Inhibitor [Nydkyhu-Omi-Kno Reductase Inhibitor] Home Medications Medication Instructions Recorded Confirmed Type calcium carbonate (Calcium 500) 500 mg PO DAILY 04/11/19 05/04/25 History cholecalciferol (vitamin D3) 25 1,000 units PO DAILY 04/11/19 05/04/25 History mcg (1,000 unit) capsule vitamins A,C,D-gicd-gcwmzg 4,296 1 cap PO DAILY 11/01/23 05/04/25 History mcg-226 mg-90 mg capsule (PreserVision AREDS) escitalopram oxalate 10 mg tablet 10 mg PO DAILY #90 tabs 02/19/25 05/04/25 Rx apixaban 5 mg tablet (Eliquis) 5 mg PO BID #60 tabs 04/09/25 05/04/25 Rx albuterol sulfate 90 mcg/actuation 1 inh inhalation QID PRN coug #8.5 04/12/25 05/04/25 Rx aerosol inhaler grams metoprolol tartrate 100 mg tablet 100 mg PO BID #180 tabs 05/01/25 05/04/25 Rx cyanocobalamin (vitamin B-12) 1,000 mcg PO DAILY 05/04/25 05/04/25 History 1,000 mcg tablet (Vitamin B-12) furosemide 20 mg tablet 20 mg PO DAILY #30 tabs 05/04/25 05/04/25 Rx potassium chloride 10 mEq 10 meq PO DAILY #30 tabs 05/04/25 05/04/25 Rx tablet,extended release Past Med/Surg History Problem List (Updated 05/04/25 @ 19:17 by Leela Lees MD) Mucus plugging of bronchi CARMEN (acute kidney injury) Acute on chronic diastolic (congestive) heart failure SOB (shortness of breath) (Acute) Atrial fibrillation Anxiety (Chronic) Vitamin D deficiency (Acute) Tremor (Acute) Solitary pulmonary nodule (Acute) Prediabetes (Acute) Depression (Acute) Allergic rhinitis (Acute) Statin myopathy Chronic kidney disease, stage 3 Medical History Hypercholesterolemia Atrial fibrillation with rapid ventricular response Compression fracture of L1 lumbar vertebra 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 Daughter No problems noted. Son No problems noted. Son No problems noted. Son No problems noted. Son No problems noted. 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 Beliefs That Will Affect Care: None marital status: Current Living Situation: Spouse current occupational status: retired Feels Safe at Home: Yes Childhood Exposure to Second-Hand Smoke: No Diet: regular caffeine: Yes during the past year weight has: remained stable Dental Care, Regularly: Yes Physical Activity Frequency: Does not Exercise Seatbelt Use: always Sunscreen Use: Yes (sometimes ) Assistive Devices: Denture - Lower Review of Systems Review of Systems: All systems reviewed & are unremarkable except as noted in HPI & below Physical Exam Physical Exam: Last 24h vitals reviewed GEN: no acute distress, sitting in bed, pleasant woman HEENT: pupils equal, sclerae anicteric, moist MM RESP: normal WOB, crackles 3/4 [address] up bilaterally posteriorly and some crackles L anterior, no wheezing CV: heart rapid and irregular no murmur ABD: soft/nt/nd +BT : no aguilera SKIN: warm and dry, no generalized rashes EXT: warm/well perfused. LE mild pitting and significant nonpitting edema at least to knees NEURO: AOx person, place, and situation. Face symmetric, speech normal, moves 4 ext spontaneously and equally Results & Data Results & Data Vital Signs (Past 12 Hours) Vital Signs Temp Pulse Pulse Resp BP BP Pulse Ox 05/04/25 18:03 131 H 126/99 05/04/25 17:59 122 H 124/93 05/04/25 17:36 129 H 102/73 05/04/25 17:02 05/04/25 17:00 120 H 20 110/80 95 05/04/25 15:45 114 H 05/04/25 15:28 117 H 18 113/90 91 05/04/25 13:33 36.5 C 93 H 16 106/66 97 O2 Del Method 05/04/25 18:03 05/04/25 17:59 05/04/25 17:36 05/04/25 17:02 Room Air 05/04/25 17:00 Room Air 05/04/25 15:45 05/04/25 15:28 Room Air 05/04/25 13:33 Room Air Laboratory Results CBC is basically normal with white blood count of 8.5 and hemoglobin of 13.7, platelet count is normal INR is 1.2 PTT is normal Sodium 140 potassium 4.0 anion gap is 6 BUN 35 creatinine 1.51 which is increased from her baseline of 1.2. It was 1.25 on April 23 high-sensitivity troponin was normal BNP 726 LFTs normal influenza/COVID/RSV negative Diagnostic Findings I personally reviewed the chest x-ray film which is clear there is some cardiomegaly questionable infiltrate left base I personally reviewed and interpreted the EKG tracing which shows atrial fibrillation with rapid ventricular response there are a few PVC or aberrant complexes there are nonspecific ST changes especially lateral leads she had a CTA of her chest which showed pulmonary edema small pleural effusions evidence of possible pulmonary hypertension dilated pulmonary artery cardiomegaly and mucous plugging. no pulmonary embolism PG Care Time/CCT Total # of Minutes Spent Total Time Spent with Patient: Total time spent is greater than 50% in coordination of care (as documented) at patient's floor/unit and/or counseling patient: Coding Level of Care Code 37027 INT INP/OBS CARE 3/75MIN Diagnoses Atrial fibrillation with rapid ventricular response I48.91 Acute on chronic diastolic (congestive) heart failure I50.33 CARMEN (acute kidney injury) N17.9 Mucus plugging of bronchi T17.500A Atrial fibrillation I48.91 Stage 3a chronic kidney disease N18.31 Chronic kidney disease stage 3 subtype: stage 3a (GFR 45-59) (6) Chronic kidney disease, stage 3 Chronic kidney disease stage 3 subtype: stage 3a (GFR 45-59) Qualified Code(s): N18.31 - Chronic kidney disease, stage 3a
[2025-05-04] MEDS: MAGNESIUM SULFATE / D5W 1 GM/100 ML BAG IV SCH (18:49)
[2025-05-04] MEDS: FUROSEMIDE INJ 20 MG/2 ML VIAL IV ONE ×2 (18:49→18:51)
[2025-05-04] MEDS ORDERED: AMIODARONE IV BOLUS & DRIP IV STA (18:50)
[2025-05-04] MEDS ORDERED: METOPROLOL SUCC 50MG EXT REL TAB PO SCH (18:50)
[2025-05-04] MEDS ORDERED: 0.2 MICRON FILTER SET 1 EACH IV STA (18:50)
[2025-05-04] MEDS ORDERED: STAT IV Infusion **Titration per Protocol STA (18:50)
[2025-05-04] MEDS: AMIODARONE / D5W 150 MG/100 ML BAG IV STA (19:37)
[2025-05-04] MEDS: AMIODARONE / D5W 360 MG/200 ML BAG IV ONE (19:59)
[2025-05-04] MEDS: Patient's HEIGHT &/or WEIGHT Needed STA (20:38)
[2025-05-04] MEDS: DIGOXIN 250 MCG in SYRINGE 9 ML IV STA (20:40)
[2025-05-04] MEDS ORDERED: ONDANSETRON INJ 2 MG/ML 2 ML VIAL IV PRN (20:47)
[2025-05-04] MEDS ORDERED: ACETAMINOPHEN 325 MG TAB PO PRN (20:47)
[2025-05-04] MEDS ORDERED: MELATONIN 3 MG TAB PO PRN (20:47)
[2025-05-04] MEDS ORDERED: MAGNESIUM HYDROXIDE SUSP 30 ML UDC PO PRN (20:47)
[2025-05-04] MEDS ORDERED: POLYETHYLENE (MIRALAX) 17 GM PACK PO PRN (20:47)
[2025-05-04] MEDS ORDERED: ALUMINUM/MAGNESIUM SUSP 30 ML UDC PO PRN (20:47)
[2025-05-04] MEDS: guaiFENesin 600 MG TABCR PO SCH (21:33)
[2025-05-04] MEDS: POTASSIUM CHLORIDE CRTAB 20 MEQ TABCR PO SCH (21:33)
[2025-05-04] MEDS: APIXABAN 5 MG TABLET PO SCH (21:34)
[2025-05-04] MEDS: METOPROLOL SUCC 50MG EXT REL TAB PO SCH (21:34)
[2025-05-05] MEDS: SODIUM CHLOR 7% 4 ML NEB NEB SCH (00:05)
[2025-05-05] MEDS: AMIODARONE / D5W 360 MG/200 ML BAG IV SCH (01:02)
--- NOTE | 2025-05-05 01:29 | Emergency Department Note ---
ED Visit Note I was consulted by the Advanced Practice Provider, Jannie Rosas. I performed a substantive portion of the visit. This includes aspects of: History: complex 89-year-old female with acute shortness of breath. MDM: Patient found to be in A-fib with RVR. Difficult to control. She does appear to be in an acute CHF exacerbation with worsening kidney function. Multiple modalities were given for control of the patient's heart rate as well as symptomatic care. Patient will require hospitalization for further workup and care. Blanco Fink DO Emergency Medicine .
[2025-05-05] MEDS: LEVALBUTEROL 0.31MG/3 ML VIAL NEB STA (05:42)
[2025-05-05] MEDS: LEVALBUTEROL TARTRATE 15 GM HFA.AER.AD INH ONE (06:14)
[2025-05-05 06:26] LABS: Hematocrit (blood only) 41.6 % (37.0-47.0); Hemoglobin 13.2 g/dL (12.0-16.0); Mean Corpuscular Hemoglobin 29.4 pg (25.0-34.0); Mean Corpuscular Volume 92.7 fL (80.0-100.0); Platelet Count 170 K/uL (130-400); RDW Standard Deviation 51.4 fL (36.4-46.3); Red Blood Count 4.49 M/uL (4.20-5.40); White Blood Count 9.04 K/ul (4.8-10.8)
[2025-05-05 06:58] LABS: Anion Gap 9.0 (3-11); Blood Urea Nitrogen 35.0 mg/dl (6-23); Calcium 8.5 mg/dl (8.6-10.3); Carbon Dioxide 31.0 mmol/L (21-32); Chloride 100.0 mmol/L (98-107); Creatinine Clr Calc Pharmacy 23.1 ml/min; Glucose 105.0 mg/dl (70-99(Fasting)); Magnesium 2.8 mg/dl (1.7-2.4); Potassium 4.1 mmol/L (3.5-5.1); Sodium 140.0 mmol/L (136-145)
[2025-05-05] MEDS: ESCITALOPRAM OXALATE 10 MG TAB PO SCH (08:40)
--- NOTE | 2025-05-05 09:41 | Hospitalist Progress Note ---
Date of Service May 05, 2025 Assessment & Plan (1) Atrial fibrillation with rapid ventricular response: (2) Acute on chronic diastolic (congestive) heart failure: (3) CARMEN (acute kidney injury): (4) Mucus plugging of bronchi: (5) Atrial fibrillation: (6) Chronic kidney disease, stage 3: Plan Bettye is a pleasant 89-year-old woman with past medical history of recently diagnosed Afib, CKD stage III, hyperlipidemia, and prediabetes. She was recently admitted to the hospital on 04/07 - 04/10 when she was diagnosed with new onset A-fib with RVR and started on metoprolol and Eliquis. She was again admitted 04/14-04/15 with entero-/rhinovirus and was in A-fib RVR again. She was excessively tired on metoprolol 150 mg bid so the dose was reduced to 100 mg bid on 05/01 by cardiology. She comes back in with dyspnea and afib with RVR. Reviewed last TTE 04/08 she had normal LV function EF 55-60% no rwma's, mild MR and mild TR, mild conc LVH, RV not well seen and PA not visualized, not volume overloaded at the time of that study CTA chest in ED was negative for PE but did show mucus plugging, pulmonary edema and small pleural effusions, and signs of pulmonary hypertension with dilated PA. #A-fib with RVR - recent reduction in metoprolol dose for excessive tiredness on 150 bid. Hypotension after metoprolol IV 5 mg x 2 (also happened last admission) #Acute on chronic diastolic heart failure -diurese - lasix 40 mg last night, BP soft this AM so held. BP better in afternoon and remains volume overloaded - ordered 40 mg IV now -decreased metoprolol XL to 50 bid to allow for diuresis -continue amiodarone drip -continue apixaban - has been consistently anticoagulated for a month -low salt diet, daily weights, I/Os -BMP stable today, K normal mag high after empiric 2g given in ED -referral to CHF clinic -consult cardiology discussed with Dr. Ace #CARMEN on CKD-3 - Cr up to 1.5. Possibly prerenal / hypoperfusion from AF with RVR. Appears volume overloaded -treat acute cardiac conditions, avoid nephrotoxins, monitor UOP and Cr. BMP qAM -jail should be on SAMUEL/ARB and would benefit from SGLT-2 since she may also have HF and has prediabetes -Cr unchanged at 1.5 #Mucus plugging - may contribute to ongoing dyspnea. Resultant of recent rhinovirus bronchitis -saline nebs stopped since she had bronchospasm, acapella, guaifenesin, mobility #Depression/anxietycontinue escitalopram #Hyperlipidemiadiet controlled, does not tolerate statin therapy #Vitamin D deficiencycontinue cholecalciferol 25 mcg daily VTE PPx: on apixaban Updated her son in the room 05/04 Admission and Anticipated Discharge Date Admission Date: May 04, 2025 Subjective Had bad reaction to hypertonic saline neb, had bronchospasm treated with xopenex Rate better controlled still in afib on tele BP low this AM. Did get dose of metoprolol 100 mg given this am Remains short of breath, feels discouraged. Edema the same today Physical Exam 2 Physical Exam: Last 24h vitals reviewed GEN: no acute distress, sitting in bed, pleasant woman HEENT: pupils equal, sclerae anicteric, moist MM RESP: normal WOB, crackles 3/[address] up bilaterally posteriorly and some crackles L anterior, no wheezing - unchanged from yesterday CV: heart rapid and irregular no murmur ABD: soft/nt/nd +BT : no aguilera SKIN: warm and dry, no generalized rashes EXT: warm/well perfused. LE mild pitting and significant nonpitting edema at least to knees NEURO: AOx person, place, and situation. Face symmetric, speech normal, moves 4 ext spontaneously and equally depressed mood Results & Data Results & Data Vital Signs (Past 12 Hours) Vital Signs Temp Pulse Pulse Resp BP Pulse Ox O2 Del Method 05/05/25 07:37 100 H 05/05/25 07:28 36.3 C L 108 H 20 96/66 L 95 Room Air 05/05/25 05:45 102 H 22 95 Room Air 05/05/25 05:15 37.2 C 103 H 26 H 135/96 96 Room Air 05/05/25 03:00 37.3 C 87 16 124/64 95 Room Air 05/05/25 00:06 110 H 18 94 Room Air 05/05/25 00:04 37.1 C 85 18 128/64 99 Room Air Laboratory Results 05/05/25 05:39 05/05/25 05:39 Cr unchanged at 1.5 WBC and Hg normal Mag 2.8 (after empiric mag by ED) BNP in 700s yesterday, no previous checks PG Care Time/CCT Total # of Minutes Spent Total Time Spent with Patient: Total time spent is greater than 50% in coordination of care (as documented) at patient's floor/unit and/or counseling patient: Coding Level of Care Code 39538 SUB INP/OBS CARE 3/50MIN Diagnoses Atrial fibrillation with rapid ventricular response I48.91 Acute on chronic diastolic (congestive) heart failure I50.33 CARMEN (acute kidney injury) N17.9 Mucus plugging of bronchi T17.500A Atrial fibrillation I48.91 Stage 3a chronic kidney disease N18.31 Chronic kidney disease stage 3 subtype: stage 3a (GFR 45-59) (6) Chronic kidney disease, stage 3 Chronic kidney disease stage 3 subtype: stage 3a (GFR 45-59) Qualified Code(s): N18.31 - Chronic kidney disease, stage 3a
--- NOTE | 2025-05-05 12:32 | Cardiology Consultation ---
Date of Consultation May 05, 2025 Assessment & Plan (1) Atrial fibrillation with rapid ventricular response: (2) Persistent atrial fibrillation: (3) SOB (shortness of breath): Plan ASSESSMENT/PLAN: 1. Persistent atrial fibrillation: Symptomatic with faster heart rates. Despite rapid titration of beta-yousif within the past month, she continues to have elevated heart rates with symptoms and with more aggressive therapy, specifically IV therapy, issues with hypotension. Amiodarone has been initiated by hospitalist group. Agree with antiarrhythmic therapy in an attempt to improve quality of life by hopefully restoring sinus rhythm. If she does not convert with amiodarone load, could consider DC cardioversion in the near future. Continue anticoagulation for stroke risk reduction. Monitor CBC and renal function. Creatinine typically less than 1.5. If creatinine remains consistently at current level, would reduce Eliquis to 2.5 mg daily, given her age. Monitor transaminase levels and TSH while on amiodarone. Periodic ECG. 2. Shortness of breath: Seems to correlate with A-fib with RVR. She does not appear to be significantly hypervolemic. She has received 40 mg of IV Lasix. Strict I's and O's. Monitor renal function and electrolytes. 3. CKD: Monitor renal function closely. 4. Disposition: Cardiology will continue to follow. Patient care communicated with primary hospitalist, Dr. Lees. On discharge, follow-up with her primary anode machine operator, Dr. French. Thank you for allowing me to participate in the care of your patient. Please call for any other questions or concerns. Sincerely, Anibal Ace M.D. History of Present Illness Reason for Consultation: "afib rvr, chf" Requesting Physician: Leela Lees MD Attending Physician: Leela Lees MD History of Present Illness Ms. Sosa is a very pleasant 89-year-old female with a history significant for paroxysmal atrial fibrillation, dyslipidemia, heart failure with preserved EF, breast cancer, and CKD. Her primary anode machine operator is Dr. French. She was hospitalized on 04/07/2025 with A-fib with RVR at which point Eliquis and metoprolol tartrate were initiated. She was discharged 3 days later with metoprolol to tartrate 150 mg twice daily and had a peak high-sensitivity troponin of 420 during her hospital stay. She remained in atrial fibrillation with improved heart rate. She was discharged but admitted again on 04/14/2025, again with A-fib with RVR and diagnosed with rhinovirus infection. She received a dose of digoxin and IV fluids. Hypotension occurred with IV metoprolol. She was seen in the cardiology office on 05/01/2025 with fatigue and a heart rate of 90 bpm in the office. Metoprolol was reduced to 100 mg twice daily, although she was admitted again on 05/04/2025 for this current hospitalization with A-fib with RVR and a complaint of shortness of breath. She again received intravenous metoprolol in the ER and became hypotensive. She was placed on amiodarone drip by hospitalist service. She states that when she has atrial fibrillation with elevated heart rates, she feels short of breath and has decreased energy levels. She denies chest pain, syncope, near syncope, palpitations, or bleeding. She has had edema for the past few months. While here, as her heart rate has improved, her shortness of breath has improved but she is not yet back to baseline. She states that she is depressed with her repeated A-fib episodes, leading to hospitalization. She does not exercise but she remains somewhat active, shopping and taking care of her home. Review of systems: As above. Family history: No known premature CAD. Social history: She denies tobacco, alcohol, or drug abuse. She lives at home with her . She had 5 children. She was unaccompanied. Allergies Allergy/AdvReac Type Severity Reaction Status Date / Time red yeast rice Allergy Unknown CAN'T Verified 05/04/25 17:37 REMEMBER atorvastatin AdvReac Intermediate LEG PAINS Verified 05/04/25 17:37 simvastatin [From Zocor] AdvReac Intermediate LEG PAINS Verified 05/04/25 17:37 Iwoqhzl-SKO-HtY Reductase AdvReac Intermediate LEG PAINS Verified 05/04/25 17:37 Inhibitor [Rhqktza-Ges-Waf Reductase Inhibitor] Home Medications Medication Instructions Recorded Confirmed Type calcium carbonate (Calcium 500) 500 mg PO DAILY 04/11/19 05/04/25 History cholecalciferol (vitamin D3) 25 1,000 units PO DAILY 04/11/19 05/04/25 History mcg (1,000 unit) capsule vitamins A,C,I-fgbq-wtdxua 4,296 1 cap PO DAILY 11/01/23 05/04/25 History mcg-226 mg-90 mg capsule (PreserVision AREDS) escitalopram oxalate 10 mg tablet 10 mg PO DAILY #90 tabs 02/19/25 05/04/25 Rx apixaban 5 mg tablet (Eliquis) 5 mg PO BID #60 tabs 04/09/25 05/04/25 Rx albuterol sulfate 90 mcg/actuation 1 inh inhalation QID PRN coug #8.5 04/12/25 05/04/25 Rx aerosol inhaler grams metoprolol tartrate 100 mg tablet 100 mg PO BID #180 tabs 05/01/25 05/04/25 Rx cyanocobalamin (vitamin B-12) 1,000 mcg PO DAILY 05/04/25 05/04/25 History 1,000 mcg tablet (Vitamin B-12) furosemide 20 mg tablet 20 mg PO DAILY #30 tabs 05/04/25 05/04/25 Rx potassium chloride 10 mEq 10 meq PO DAILY #30 tabs 05/04/25 05/04/25 Rx tablet,extended release Patient History Medical History Hypercholesterolemia Atrial fibrillation with rapid ventricular response Compression fracture of L1 lumbar vertebra 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 Daughter No problems noted. Son No problems noted. Son No problems noted. Son No problems noted. Son No problems noted. Denies family history of Ovarian cancer Prostate cancer Coronary heart disease Colorectal cancer Social History Smoking Status: Never smoker Second Hand Exposure: No; Do You Dip or Chew Tobacco: No; Hx Alcohol Use: No Hx Substance Use: No Preferred Language: Micronesian Communication Ability: Effective Visual Impairment: No Limitations Hearing Ability: Normal Health And Safety Advisor Required: No Beliefs That Will Affect Care: None marital status: Current Living Situation: Spouse current occupational status: retired Feels Safe at Home: Yes Safety Concerns: Feels Safe At This Time Childhood Exposure to Second-Hand Smoke: No Diet: regular caffeine: Yes during the past year weight has: remained stable Dental Care, Regularly: Yes Physical Activity Frequency: Does not Exercise Seatbelt Use: always Sunscreen Use: Yes (sometimes ) Assistive Devices: Denture - Lower Assistive Devices Comment: partial lower denture Physical Exam Physical Exam: Gen.: No acute distress. Alert. HEENT: Anicteric sclera. Neck: No JVD. No bruits. Normal carotid upstrokes bilaterally. Cardiac: Irregularly irregular. Tachycardic. Normal S1-S2. No murmurs, rubs, or gallops. Pulmonary: Clear to auscultation bilaterally without wheezes, rales, or rhonchi. Abdomen: Soft, nontender, nondistended, with normoactive bowel sounds. No bruits noted. Extremities: 2+ radial pulses bilaterally. 2+ posterior tibialis pulses bilaterally. Trace bilateral lower extremity edema. No cyanosis. Results & Data Vital Signs (Past 12 Hours) Vital Signs Temp Pulse Pulse Resp BP Pulse Ox O2 Del Method 05/05/25 12:07 36.6 C 110 H 19 112/72 96 Room Air 05/05/25 07:37 100 H 05/05/25 07:28 36.3 C L 108 H 20 96/66 L 95 Room Air 05/05/25 05:45 102 H 22 95 Room Air 05/05/25 05:15 37.2 C 103 H 26 H 135/96 96 Room Air 05/05/25 03:00 37.3 C 87 16 124/64 95 Room Air Intake & Output 05/03/25 05/04/25 05/05/25 05/06/25 06:59 06:59 06:59 06:59 Intake Total 950 / 950 Output Total 200 / 200 Balance 750 / 750 Weight 165 lb 9.074 oz Laboratory Results Laboratory Results - last 24 hr 05/04/25 05/04/25 05/05/25 14:32 15:26 05:39 WBC 8.56 9.04 RBC 4.66 4.49 Hgb 13.7 13.2 Hct 43.2 41.6 MCV 92.7 92.7 MCH 29.4 29.4 MCHC 31.7 L 31.7 L RDW Std Deviation 51.0 H 51.4 H RDW Coeff of Dejah 15.0 H 15.0 H Plt Count 165 170 MPV 9.7 9.8 Immature Gran % (Auto) 0.2 Neut % (Auto) 70.5 Lymph % (Auto) 18.3 [place] % (Auto) 10.4 Eos % (Auto) 0.1 Baso % (Auto) 0.5 Neut # (Auto) 6.03 Lymph # (Auto) 1.57 [place] # (Auto) 0.89 H Eos # (Auto) 0.01 Baso # (Auto) 0.04 Immature Gran # (Auto) 0.02 PT 12.4 H INR 1.2 H APTT 26 PTT Ratio 1.0 Sodium 140 140 Potassium 4.0 4.1 Chloride 102 100 Carbon Dioxide 32 31 Anion Gap 6 9 BUN 35 H 35 H Creatinine 1.51 H 1.53 H Est Cr Clr Drug Dosing Not Reportable 23.1 eGFR 32.84 32.33 BUN/Creatinine Ratio 23.2 H 22.9 H Glucose 122 H 105 H Calcium 9.0 8.5 L Magnesium 2.3 2.8 H Total Bilirubin 0.7 AST 26 ALT 29 Alkaline Phosphatase 56 Troponin I High Sens 12.3 B-Natriuretic Peptide 726 H Total Protein 6.1 Albumin 3.2 L Globulin 2.9 Albumin/Globulin Ratio 1.1 SARS-CoV-2 (PCR) NEGATIVE Influenza Type A (PCR) Negative Influenza Type B (PCR) Negative RSV (RT-PCR) Negative Diagnostic Findings On 05/05/2025, chart reviewed. Labs reviewed and notable for mildly abnormal renal function, above baseline (creatinine 1.53 with baseline 1.1-1.2), normal potassium, normal sodium, elevated BUN compared to baseline, normal transaminase levels, recently normal TSH, normal blood counts, elevated BNP, normal high-sensitivity troponin. ECG personally reviewed 05/04/2025: Atrial fibrillation 106 bpm. PVC versus aberrantly conducted complexes. Nonspecific T wave abnormality. History and physical report reviewed. CTA chest 05/04/2025: No evidence for pulmonary embolism. Small pleural effusions with pulmonary edema. Pulmonary hypertension suggested from imaging per radiology. Chest x-ray image personally reviewed: Small bilateral pleural effusions. Stable findings per radiology. Outpatient cardiology note reviewed from 05/01/2025. Discharge summary report reviewed from 04/15/2025. Discharge summary reviewed from 04/10/2025. Echo report reviewed 04/08/2025: Normal LV size, wall motion, systolic function. EF 55-60%. Mild LVH. Mild MR. Telemetry personally reviewed: Atrial fibrillation with improved heart rate since presentation, with heart rates in the 90s to 100s when evaluated this afternoon. Medications Administered Current Inpatient Medications Acetaminophen (Acetaminophen 325 Mg Tab) 650 mg PO Q4H PRN PRN Reason: Pain or Fever Stop: 06/03/25 20:46 Al Hydrox/Mg Hydrox/Simethicone (Aluminum/Magnesium Susp 30 Ml Udc) 15 ml PO Q4H PRN PRN Reason: Dyspepsia Stop: 06/03/25 20:46 Apixaban (Apixaban 5 Mg Tablet) 5 mg PO BID CHANELLE Stop: 06/03/25 20:59 Last Admin: 05/05/25 08:40 Dose: 5 mg Escitalopram Oxalate (Escitalopram Oxalate 10 Mg Tab) 10 mg PO DAILY CHANELLE Stop: 06/04/25 08:59 Last Admin: 05/05/25 08:40 Dose: 10 mg Guaifenesin (Guaifenesin 600 Mg Tabcr) 1,200 mg PO Q12 CHANELLE Stop: 06/03/25 20:59 Last Admin: 05/05/25 08:40 Dose: 1,200 mg Amiodarone HCl/Dextrose (Nexterone / D5w) 360 mg in 200 mls @ 16.667 mls/hr IV .Q12H CHANELLE Stop: 06/04/25 00:59 Last Admin: 05/05/25 01:02 Dose: 0.5 mg/min, 16.7 mls/hr Magnesium Hydroxide (Magnesium Hydroxide Susp 30 Ml Udc) 30 ml PO Q12H PRN PRN Reason: Constipation Stop: 06/03/25 20:46 Melatonin (Melatonin 3 Mg Tab) 3 mg PO HS PRN PRN Reason: Sleep Stop: 06/03/25 20:46 Metoprolol Succinate (Metoprolol Succ 50mg Ext Rel Tab) 50 mg PO BID CHANELLE Stop: 06/04/25 20:59 Ondansetron HCl (Ondansetron Inj 2 Mg/Ml 2 Ml Vial) 4 mg IV Q6H PRN PRN Reason: Nausea Stop: 06/03/25 20:46 Polyethylene Glycol (Polyethylene (Miralax) 17 Gm Pack) 17 gm PO DAILY PRN PRN Reason: Constipation Stop: 06/03/25 20:46 Potassium Chloride (Potassium Chloride Crtab 20 Meq Tabcr) 20 meq PO QAM CHANELLE Stop: 06/03/25 20:46 Last Admin: 05/05/25 08:42 Dose: 20 meq PG Care Time/CCT Total # of Minutes Spent Total Time Spent with Patient: Total time spent is greater than 50% in coordination of care (as documented) at patient's floor/unit and/or counseling patient: Coding Level of Care Code 38244 INT INP/OBS CARE 3/75MIN Diagnoses Atrial fibrillation with rapid ventricular response I48.91 Persistent atrial fibrillation I48.19 SOB (shortness of breath) R06.02
[2025-05-05] MEDS: FUROSEMIDE 40 MG/4 ML VIAL IV ONE (17:41)
[2025-05-05] MEDS: METOPROLOL SUCC 50MG EXT REL TAB PO SCH (21:35)
[2025-05-06 06:40] LABS: Anion Gap 6.0 (3-11); Blood Urea Nitrogen 31.0 mg/dl (6-23); Calcium 8.3 mg/dl (8.6-10.3); Carbon Dioxide 33.0 mmol/L (21-32); Chloride 101.0 mmol/L (98-107); Creatinine Clr Calc Pharmacy 26.0 ml/min; Glucose 98.0 mg/dl (70-99(Fasting)); Magnesium 2.5 mg/dl (1.7-2.4); Potassium 4.6 mmol/L (3.5-5.1); Sodium 140.0 mmol/L (136-145)
[2025-05-06] MEDS: ESCITALOPRAM OXALATE 20 MG TAB PO SCH (09:32)
--- NOTE | 2025-05-06 12:51 | Cardiology Progress Note ---
Date of Service May 06, 2025 Assessment & Plan (1) Atrial fibrillation with rapid ventricular response: (2) Persistent atrial fibrillation: (3) SOB (shortness of breath): Plan ASSESSMENT/PLAN: 1. Persistent atrial fibrillation: Symptomatic with faster heart rates. Horacio pite rapid titration of beta-yousif within the past month, she continues to have elevated heart rates with symptoms and with more aggressive therapy, specifically IV therapy, issues with hypotension. Amiodarone has been initiated by hospitalist group. Agree with antiarrhythmic therapy in an attempt to improve quality of life by hopefully restoring sinus rhythm. If she does not convert with amiodarone load, considered and discussed DC cardioversion tomorrow. She would like to proceed with cardioversion attempt to improve her quality of life. Offered to call family members as well to discuss further and she declines. She plans on filling in her family on her own. She has been on anticoagulation therapy without interruption for at least 4 weeks. Continue anticoagulation for stroke risk reduction. Monitor CBC and renal function. Monitor transaminase levels and TSH while on amiodarone. Periodic ECG. 2. Shortness of breath: Seems to correlate with A-fib with RVR. She does not appear to be significantly hypervolemic. She has received 40 mg of IV Lasix on 05/05/2025. Strict I's and O's. Monitor renal function and electrolytes. 3. CKD: Monitor renal function closely. 4. Disposition: Cardiology will continue to follow. Patient care communicated with primary hospitalist, Dr. Lees. On discharge, follow-up with her primary lens maker, Dr. French. Admission and Anticipated Discharge Date Admission Date: May 04, 2025 Subjective Patient was seen this morning. She denies chest pain, syncope, near syncope, palpitations, edema, or bleeding. She denies shortness of breath in bed but with exertion she has shortness of breath, which has seemed to correlate with atrial fibrillation. She was unaccompanied. Physical Exam Physical Exam: Gen.: No acute distress. Alert. Oriented. HEENT: Anicteric sclera. Neck: No JVD. Cardiac: Irregularly irregular. Tachycardic. Normal S1-S2. No murmurs, rubs, or gallops. Pulmonary: Clear to auscultation bilaterally without wheezes, rales, or rhonchi. Abdomen: Soft, nontender, nondistended, with normoactive bowel sounds. No bruits noted. Extremities: 2+ radial pulses bilaterally. 2+ posterior tibialis pulses bilaterally. Trace bilateral lower extremity edema. No cyanosis. Results & Data Vital Signs (Past 12 Hours) Vital Signs Temp Pulse Resp BP Pulse Ox O2 Del Method 05/06/25 11:41 36.3 C L 114 H 18 124/84 96 Room Air 05/06/25 07:25 36.4 C L 107 H 20 115/73 95 Room Air 05/06/25 07:20 Room Air 05/06/25 03:03 36.4 C L 107 H 18 115/62 95 Room Air 05/06/25 01:24 Room Air Intake & Output 05/04/25 05/05/25 05/06/25 05/07/25 06:59 06:59 06:59 06:59 Intake Total 950 / 950 998.173 / 998.173 188.71 / 188.71 Output Total 200 / 200 Balance 750 / 750 998.173 / 998.173 188.71 / 188.71 Weight 165 lb 9.074 oz 168 lb 8 oz Laboratory Results Laboratory Results - last 24 hr 05/06/25 05:35 Sodium 140 Potassium 4.6 Chloride 101 Carbon Dioxide 33 H Anion Gap 6 BUN 31 H Creatinine 1.37 H Est Cr Clr Drug Dosing 26.0 eGFR 36.91 BUN/Creatinine Ratio 22.6 H Glucose 98 Calcium 8.3 L Magnesium 2.5 H Diagnostic Findings Labs reviewed and notable for mildly abnormal but improved renal function, normal potassium. Telemetry personally reviewed: Atrial fibrillation with mild tachycardia. Medications Administered Current Inpatient Medications Acetaminophen (Acetaminophen 325 Mg Tab) 650 mg PO Q4H PRN PRN Reason: Pain or Fever Stop: 06/03/25 20:46 Al Hydrox/Mg Hydrox/Simethicone (Aluminum/Magnesium Susp 30 Ml Udc) 15 ml PO Q4H PRN PRN Reason: Dyspepsia Stop: 06/03/25 20:46 Apixaban (Apixaban 5 Mg Tablet) 5 mg PO BID [facility] Stop: 06/03/25 20:59 Last Admin: 05/06/25 09:28 Dose: 5 mg Escitalopram Oxalate (Escitalopram Oxalate 20 Mg Tab) 20 mg PO DAILY [facility] Stop: 06/05/25 08:59 Last Admin: 05/06/25 09:32 Dose: 20 mg Guaifenesin (Guaifenesin 600 Mg Tabcr) 1,200 mg PO Q12 CHANELLE Stop: 06/03/25 20:59 Last Admin: 05/06/25 09:28 Dose: 1,200 mg Amiodarone HCl/Dextrose (Nexterone / D5w) 360 mg in 200 mls @ 16.667 mls/hr IV .Q12H [facility] Stop: 06/04/25 00:59 Last Admin: 05/06/25 12:15 Dose: 0.5 mg/min, 16.7 mls/hr Magnesium Hydroxide (Magnesium Hydroxide Susp 30 Ml Udc) 30 ml PO Q12H PRN PRN Reason: Constipation Stop: 06/03/25 20:46 Melatonin (Melatonin 3 Mg Tab) 3 mg PO HS PRN PRN Reason: Sleep Stop: 06/03/25 20:46 Metoprolol Succinate (Metoprolol Succ 50mg Ext Rel Tab) 50 mg PO BID [facility] Stop: 06/04/25 20:59 Last Admin: 05/06/25 09:28 Dose: 50 mg Ondansetron HCl (Ondansetron Inj 2 Mg/Ml 2 Ml Vial) 4 mg IV Q6H PRN PRN Reason: Nausea Stop: 06/03/25 20:46 Polyethylene Glycol (Polyethylene (Miralax) 17 Gm Pack) 17 gm PO DAILY PRN PRN Reason: Constipation Stop: 06/03/25 20:46 Potassium Chloride (Potassium Chloride Crtab 20 Meq Tabcr) 20 meq PO QAM [facility] Stop: 06/03/25 20:46 Last Admin: 05/06/25 09:28 Dose: 20 meq PG Care Time/CCT Total # of Minutes Spent Total Time Spent with Patient: Total time spent is greater than 50% in coordination of care (as documented) at patient's floor/unit and/or counseling patient: Coding Level of Care Code 26929 SUB INP/OBS CARE 3/50MIN Diagnoses Atrial fibrillation with rapid ventricular response I48.91 Persistent atrial fibrillation I48.19 SOB (shortness of breath) R06.02
--- NOTE | 2025-05-06 14:15 | Anesthesiology Consultation ---
Date of Service May 06, 2025 Assessment & Plan Chart Review Chart Review: Acceptable Risk for Surgery and Patient NOT seen in Pre Admission Testing Consults Requested none ASA ASA4 History Height/Weight Height: 5 ft 1 in Weight: 76.43 kg Allergies Allergy/AdvReac Type Severity Reaction Status Date / Time red yeast rice Allergy Unknown CAN'T Verified 05/04/25 17:37 REMEMBER atorvastatin AdvReac Intermediate LEG PAINS Verified 05/04/25 17:37 simvastatin [From Zocor] AdvReac Intermediate LEG PAINS Verified 05/04/25 17:37 Irgfxtd-KJS-ZtP Reductase AdvReac Intermediate LEG PAINS Verified 05/04/25 17:37 Inhibitor [Cowjuxf-Etf-Yax Reductase Inhibitor] Medications Home Medications Medication Instructions Recorded Confirmed Last Taken calcium carbonate (Calcium 500) 500 mg PO DAILY 04/11/19 05/04/25 05/03/25 cholecalciferol (vitamin D3) 25 1,000 units PO DAILY 04/11/19 05/04/25 05/03/25 mcg (1,000 unit) capsule vitamins A,C,B-hsle-xqevnd 4,296 1 cap PO DAILY 11/01/23 05/04/25 05/04/25 mcg-226 mg-90 mg capsule (PreserVision AREDS) escitalopram oxalate 10 mg tablet 10 mg PO DAILY #90 tabs 02/19/25 05/04/25 05/04/25 apixaban 5 mg tablet (Eliquis) 5 mg PO BID #60 tabs 04/09/25 05/04/25 05/04/25 08:00 albuterol sulfate 90 mcg/actuation 1 inh inhalation QID PRN coug #8.5 04/12/25 05/04/25 Unknown aerosol inhaler grams metoprolol tartrate 100 mg tablet 100 mg PO BID #180 tabs 05/01/25 05/04/25 05/04/25 08:00 cyanocobalamin (vitamin B-12) 1,000 mcg PO DAILY 05/04/25 05/04/25 05/04/25 1,000 mcg tablet (Vitamin B-12) furosemide 20 mg tablet 20 mg PO DAILY #30 tabs 05/04/25 05/04/25 05/03/25 potassium chloride 10 mEq 10 meq PO DAILY #30 tabs 05/04/25 05/04/25 05/03/25 tablet,extended release Active Medications Generic Name Dose Route Start Last Admin Trade Name Marisela PRN Reason Stop Dose Admin Apixaban 5 mg 05/04/25 21:00 05/06/25 09:28 Apixaban 5 Mg Tablet PO 06/03/25 20:59 5 mg BID CHANELLE Administration Escitalopram Oxalate 20 mg 05/06/25 09:00 05/06/25 09:32 Escitalopram Oxalate 20 Mg Tab PO 06/05/25 08:59 20 mg DAILY CHANELLE Administration Guaifenesin 1,200 mg 05/04/25 21:00 05/06/25 09:28 Guaifenesin 600 Mg Tabcr PO 06/03/25 20:59 1,200 mg Q12 CHANELLE Administration Amiodarone HCl/Dextrose 360 mg in 200 mls @ 16.667 mls/hr 05/05/25 01:00 05/06/25 12:15 Nexterone / D5w IV 06/04/25 00:59 0.5 mg/min .Q12H CHANELLE 16.7 mls/hr Administration 0.5 MG/MIN Metoprolol Succinate 50 mg 05/05/25 21:00 05/06/25 09:28 Metoprolol Succ 50mg Ext Rel Tab PO 06/04/25 20:59 50 mg BID CHANELLE Administration Potassium Chloride 20 meq 05/04/25 20:47 05/06/25 09:28 Potassium Chloride Crtab 20 Meq Tabcr PO 06/03/25 20:46 20 meq QAM CHANELLE Administration Past Medical History Medical History Hypercholesterolemia Atrial fibrillation with rapid ventricular response Compression fracture of L1 lumbar vertebra 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 nodules Exercise / Class Metabolic Activity III < 4 Walking/Shop/Light housework Past Family History Family History Mother , passed age 42 of breast ca Breast cancer Father , Passed age 91 cause unknown No problems noted. Daughter No problems noted. Son No problems noted. Son No problems noted. Son No problems noted. Son No problems noted. Denies family history of Ovarian cancer Prostate cancer Coronary heart disease Colorectal cancer Past Surgical History Surgical History History of cataract surgery 2004 H/O: hysterectomy 1961 History of cholecystectomy 1992 History of tonsillectomy As a child History of cholecystectomy Past Anesthesia History No Hx of Anesthesia Complications and No Family Hx of Anesthesia Complications History of PONV No Hx of PONV and No Hx of Motion Sickness Social History Smoking Status: Never smoker Do You Dip or Chew Tobacco: No Hx Alcohol Use: No Hx Substance Use: No Physical Exam Vital Signs Last Vital Signs Temp 36.3 C L 05/06/25 11:41 Pulse 114 H 05/06/25 11:41 Resp 18 05/06/25 11:41 BP 124/84 05/06/25 11:41 Pulse Ox 96 05/06/25 11:41 O2 Del Method Room Air 05/06/25 11:41 Testing Laboratory Results 05/05/25 05:39 05/06/25 05:35 PT 12.4 Seconds (9.0-12.0) H 05/04/25 14:32 INR 1.2 (0.9-1.1) H 05/04/25 14:32 APTT 26 Seconds (21-31) 05/04/25 14:32 Electrocardiogram Date: 05/04/25 Findings: + AFIB @ (@ 106 RVR) Chest X-Ray Date: 05/04/25 Findings: + NAD and + cardiomegaly Echocardiogram Date: 04/08/25 EF: 55% Other Findings: + LVH Valvular Disease: + MR (mild) TR-mild Other Testing 06/26/2022-Carotid U/S-< 50% B/L ICA's
--- NOTE | 2025-05-06 17:04 | Hospitalist Progress Note ---
Date of Service May 06, 2025 Assessment & Plan (1) Atrial fibrillation with rapid ventricular response: (2) Acute on chronic diastolic (congestive) heart failure: (3) CARMEN (acute kidney injury): (4) Mucus plugging of bronchi: (5) Atrial fibrillation: (6) Chronic kidney disease, stage 3: Plan Bettye is a pleasant 89-year-old woman with past medical history of recently diagnosed Afib, CKD stage III, hyperlipidemia, and prediabetes. She was recently admitted to the hospital on 04/07 - 04/10 when she was diagnosed with new onset A-fib with RVR and started on metoprolol and Eliquis. She was again admitted 04/14-04/15 with entero-/rhinovirus and was in A-fib RVR again. She was excessively tired on metoprolol 150 mg bid so the dose was reduced to 100 mg bid on 05/01 by cardiology. She comes back in with dyspnea and afib with RVR. Reviewed last TTE 04/08 she had normal LV function EF 55-60% no rwma's, mild MR and mild TR, mild conc LVH, RV not well seen and PA not visualized, not volume overloaded at the time of that study CTA chest in ED was negative for PE but did show mucus plugging, pulmonary edema and small pleural effusions, and signs of pulmonary hypertension with dilated PA. #A-fib with RVR - recent reduction in metoprolol dose for excessive tiredness on 150 bid. Hypotension after metoprolol IV 5 mg x 2 (also happened last admission) #Acute on chronic diastolic heart failure -diuresed with 2 x 40 mg IV Lasix this admission, probably euvolemic at this point -decreased metoprolol XL to 50 bid to allow for diuresis -continue amiodarone drip -continue apixaban - has been consistently anticoagulated for a month -low salt diet, daily weights, I/Os - electrolytes normal today on [facility] -referral to CHF clinic - discussed plan of care with Dr. Ace - continue amiodarone drip if she does not convert to sinus by tomorrow plan attempt at cardioversion #CARMEN on CKD-3 - Cr up to 1.5. Possibly prerenal / hypoperfusion from AF with RVR. Appears volume overloaded -treat acute cardiac conditions, avoid nephrotoxins, monitor UOP and Cr. BMP qAM -chcf should be on SAMUEL/ARB and would benefit from SGLT-2 since she may also have HF and has prediabetes -Cr improved to 1.37 #Mucus plugging - may contribute to ongoing dyspnea. Resultant of recent rhinovirus bronchitis -saline nebs stopped since she had bronchospasm, acapella, guaifenesin, mobility #Depression/anxietycontinue escitalopram #Hyperlipidemiadiet controlled, does not tolerate statin therapy #Vitamin D deficiencycontinue cholecalciferol 25 mcg daily VTE PPx: on apixaban Updated her son in the room 05/04 Admission and Anticipated Discharge Date Admission Date: May 04, 2025 Subjective Shortness of breath improved since admission, but not back to usual self regarding breathing or strength. No cough, chest pain, or significant urine output after 40 mg Lasix yesterday. Up independently to the bathroom. Encouraged to get in the chair for lunchtime. Physical Exam Physical Exam: General Appearance: Normal. Vital signs: Reviewed past 24h vital signs in EMR, unremarkable. HEENT: Within normal limits. Respiratory: Comfortable work of breathing. Crackles present, especially right posterior and left anterior. Cardiovascular: Irregularly irregular heart rhythm, mildly tachycardic. Gastrointestinal: Abdomen soft NT/ND, normal active bowel tones. Extremities: Trace pitting edema at ankles. Skin: Skin warm, dry, well perfused. Neurological: Awake, alert, oriented x4. Psychiatric: Normal. Results & Data Results & Data Vital Signs (Past 12 Hours) Vital Signs Temp Pulse Pulse Resp BP Pulse Ox O2 Del Method 05/06/25 16:06 108 H 05/06/25 15:28 36.6 C 86 19 101/70 95 Room Air 05/06/25 11:41 36.3 C L 114 H 18 124/84 96 Room Air 05/06/25 08:05 97 H 05/06/25 07:25 36.4 C L 107 H 20 115/73 95 Room Air 05/06/25 07:20 Room Air Laboratory Results - Laboratory Studies: - Sodium: 140 - Potassium: 4.6 - CO2: 33 - BUN: 31 - Creatinine: 1.37 (improved from 1.53) - Magnesium: 2.5 PG Care Time/CCT Total # of Minutes Spent Total Time Spent with Patient: Total time spent is greater than 50% in coordination of care (as documented) at patient's floor/unit and/or counseling patient: Coding Level of Care Code 13866 SUB INP/OBS CARE 350MIN Diagnoses Atrial fibrillation with rapid ventricular response I48.91 Acute on chronic diastolic (congestive) heart failure I50.33 CARMEN (acute kidney injury) N17.9 Mucus plugging of bronchi T17.500A Atrial fibrillation I48.91 Stage 3a chronic kidney disease N18.31 Chronic kidney disease stage 3 subtype: stage 3a (GFR 45-59) (6) Chronic kidney disease, stage 3 Chronic kidney disease stage 3 subtype: stage 3a (GFR 45-59) Qualified Code(s): N18.31 - Chronic kidney disease, stage 3a
--- NOTE | 2025-05-06 17:05 | Hospitalist Progress Note ---
Date of Service May 06, 2025 Assessment & Plan (1) Atrial fibrillation with rapid ventricular response: (2) Acute on chronic diastolic (congestive) heart failure: (3) CARMEN (acute kidney injury): (4) Mucus plugging of bronchi: (5) Atrial fibrillation: (6) Chronic kidney disease, stage 3: Plan Bettye is a pleasant 89-year-old woman with past medical history of recently diagnosed Afib, CKD stage III, hyperlipidemia, and prediabetes. She was recently admitted to the hospital on 04/07 - 04/10 when she was diagnosed with new onset A-fib with RVR and started on metoprolol and Eliquis. She was again admitted 04/14-04/15 with entero-/rhinovirus and was in A-fib RVR again. She was excessively tired on metoprolol 150 mg bid so the dose was reduced to 100 mg bid on 05/01 by cardiology. She comes back in with dyspnea and afib with RVR. Reviewed last TTE 04/08 she had normal LV function EF 55-60% no rwma's, mild MR and mild TR, mild conc LVH, RV not well seen and PA not visualized, not volume overloaded at the time of that study CTA chest in ED was negative for PE but did show mucus plugging, pulmonary edema and small pleural effusions, and signs of pulmonary hypertension with dilated PA. #A-fib with RVR - recent reduction in metoprolol dose for excessive tiredness on 150 bid. Hypotension after metoprolol IV 5 mg x 2 (also happened last admission) #Acute on chronic diastolic heart failure -diuresed with 2 x 40 mg IV Lasix this admission, probably euvolemic at this point -decreased metoprolol XL to 50 bid to allow for diuresis -continue amiodarone drip -continue apixaban - has been consistently anticoagulated for a month -low salt diet, daily weights, I/Os - electrolytes normal today on [facility] -referral to CHF clinic - discussed plan of care with Dr. Ace - continue amiodarone drip if she does not convert to sinus by tomorrow plan attempt at cardioversion #CARMEN on CKD-3 - Cr up to 1.5. Possibly prerenal / hypoperfusion from AF with RVR. Appears volume overloaded -treat acute cardiac conditions, avoid nephrotoxins, monitor UOP and Cr. BMP qAM -longterm should be on SAMUEL/ARB and would benefit from SGLT-2 since she may also have HF and has prediabetes -Cr improved to 1.37 #Mucus plugging - may contribute to ongoing dyspnea. Resultant of recent rhinovirus bronchitis -saline nebs stopped since she had bronchospasm, acapella, guaifenesin, mobility ADDENDUM: #Depression/anxietycontinue escitalopram but increase to 20 mg at her request - has had low mood related to all the recent medical problems. Follow EKG for QTC if amiodarone to be continued po #Hyperlipidemiadiet controlled, does not tolerate statin therapy #Vitamin D deficiencycontinue cholecalciferol 25 mcg daily VTE PPx: on apixaban Updated her son in the room 05/04 Admission and Anticipated Discharge Date Admission Date: May 04, 2025 Results & Data Results & Data Vital Signs (Past 12 Hours) Vital Signs Temp Pulse Pulse Resp BP Pulse Ox O2 Del Method 05/06/25 16:06 108 H 05/06/25 15:28 36.6 C 86 19 101/70 95 Room Air 05/06/25 11:41 36.3 C L 114 H 18 124/84 96 Room Air 05/06/25 08:05 97 H 05/06/25 07:25 36.4 C L 107 H 20 115/73 95 Room Air 05/06/25 07:20 Room Air PG Care Time/CCT Total # of Minutes Spent Total Time Spent with Patient: Total time spent is greater than 50% in coordination of care (as documented) at patient's floor/unit and/or counseling patient: Coding Level of Care Code None Diagnoses Atrial fibrillation with rapid ventricular response I48.91 Acute on chronic diastolic (congestive) heart failure I50.33 CARMEN (acute kidney injury) N17.9 Mucus plugging of bronchi T17.500A Atrial fibrillation I48.91 Stage 3a chronic kidney disease N18.31 Chronic kidney disease stage 3 subtype: stage 3a (GFR 45-59) (6) Chronic kidney disease, stage 3 Chronic kidney disease stage 3 subtype: stage 3a (GFR 45-59) Qualified Code(s): N18.31 - Chronic kidney disease, stage 3a
[2025-05-07] MEDS: FUROSEMIDE INJ 20 MG/2 ML VIAL IV ONE (06:35)
[2025-05-07] MEDS ORDERED: PROPOFOL IV EMULSION 10 MG/ML 20 ML VIAL IV ONE (06:54)
[2025-05-07 06:58] LABS: Anion Gap 6.0 (3-11); Blood Urea Nitrogen 25.0 mg/dl (6-23); Calcium 8.3 mg/dl (8.6-10.3); Carbon Dioxide 31.0 mmol/L (21-32); Chloride 101.0 mmol/L (98-107); Creatinine Clr Calc Pharmacy 27.8 ml/min; Glucose 103.0 mg/dl (70-99(Fasting)); Magnesium 2.4 mg/dl (1.7-2.4); Potassium 4.5 mmol/L (3.5-5.1); Sodium 138.0 mmol/L (136-145)
--- NOTE | 2025-05-07 07:18 | XRay Report ---
EXAM: XR chest 1V portable CLINICAL HISTORY: sob TECHNIQUE: An X-ray image of the chest is obtained in AP projection. COMPARISON: Chest radiographs and CT chest angiogram dated 05/04/2025 . FINDINGS: Pulmonary Parenchyma: Bilateral interstitial and perihilar opacities, greater in the lower lung zones. Bibasilar atelectatic changes. No focal lobar consolidation identified. No pneumothorax. Small pleural effusions cannot be excluded, particularly on the left. Heart and Mediastinum: Cardiac silhouette appears enlarged; assessment limited by AP projection. No mediastinal widening or masses. No hilar or mediastinal lymphadenopathy. Bony Thorax: Bony thorax appears intact without fractures or deformities. Soft Tissues: Soft tissues overlying the chest wall are unremarkable. External monitoring leads project over the chest. IMPRESSION: 1. Bilateral interstitial and basilar airspace opacities, which may reflect atelectasis and/or pulmonary vascular congestion in the appropriate clinical setting. 2. Small pleural effusions, left greater than right, not well assessed on this portable view. Unchanged. 3. No definite focal pneumonia or pneumothorax identified. 4. Cardiac size appears enlarged, noting limitation of AP portable technique. 5. Compared with the prior chest radiograph dated 05/04/2025, there is no significant interval change in cardiomediastinal silhouette or pulmonary aeration, with no new focal consolidation, pleural effusion, or pneumothorax identified. 6. Clinical correlation and follow-up imaging as clinically indicated. Electronically signed by Adeel Tompkins 05-07-2025 07:17 AM
--- NOTE | 2025-05-07 07:48 | Cardioversion ---
Date of Service May 07, 2025 PG Electrical Cardioversion Rp Electrical Cardioversion Report Procedure: DC Cardioversion Indication: Symptomatic atrial fibrillation with RVR Informed Consent: Obtained Anticoagulation: Therapeutic Eliquis Sedation: Provided by anesthesiology TimeOut: Performed Procedure Details: Once sufficiently sedated, 200 Joules were delivered in a synchronized fashion, which successfully converted atrial fibrillation with RVR to sinus bradycardia in the 40s to 50s. She tolerated the procedure well without known complication. Her blood pressure was normal with sinus bradycardia. No known complications at the time of this note. Plan: 1. Discontinue metoprolol. 2. If HR allows, will resume amiodarone orally. 3. Continue therapeutic anticoagulation therapy without interruption for at least 4 weeks, although indefinite anticoagulation is currently indicated. Coding Level of Care Code 15590 CARDIOVERSION, ELECTIVE Additional Codes Electrical Cardioversion Report ([id number])
--- NOTE | 2025-05-07 08:04 | Cardiology Progress Note ---
Date of Service May 07, 2025 Assessment & Plan (1) Atrial fibrillation with rapid ventricular response: (2) Persistent atrial fibrillation: (3) SOB (shortness of breath): Plan ASSESSMENT/PLAN: 1. Persistent atrial fibrillation s/p DC CV (05/07/25): Symptomatic with faster heart rates. Despite rapid titration of beta-yousif within the past month, she continues to have elevated heart rates with symptoms and with more aggressive therapy, specifically IV therapy, issues with hypotension. Now sinus bradycardia following cardioversion. If heart rate can tolerate, will resume amiodarone orally, likely 200 mg once daily or twice daily, depending on the heart rate. Beta-yousif has been discontinued due to bradycardia while in sinus. If heart rate remains in the 50s while in sinus, would consider pacemaker for tachybradycardia syndrome, to allow for amiodarone. Continue anticoagulation for stroke risk reduction. Monitor CBC and renal function. Monitor transaminase levels and TSH while on amiodarone. Periodic ECG. 2. Shortness of breath: Seems to correlate with A-fib with RVR. She does not appear to be significantly hypervolemic. She has received 40 mg of IV Lasix on 05/05/2025 and another 20 mg on 05/07/2025. Strict I's and O's. Monitor renal function and electrolytes. 3. CKD: Monitor renal function closely. 4. Disposition: Cardiology will continue to follow. Patient care communicated with primary hospitalist, Dr. Lees. On discharge, follow-up with her primary store merchandiser, Dr. French. Admission and Anticipated Discharge Date Admission Date: May 04, 2025 Subjective Patient seen this morning. Immediately following cardioversion, she felt better with resolution of her shortness of breath. She denies chest pain, syncope, near syncope, palpitations, edema, or bleeding. When she was seen following cardioversion, her and son were at the bedside. She continued to feel well while in sinus bradycardia in the 50s. Physical Exam Physical Exam: Gen.: No acute distress. Alert. Oriented. HEENT: Anicteric sclera. Neck: No JVD. Cardiac: Regular and bradycardic in the 50s. Normal S1-S2. No murmurs, rubs, or gallops. Pulmonary: Clear to auscultation bilaterally without wheezes, rales, or rhonchi. Abdomen: Soft, nontender, nondistended, with normoactive bowel sounds. No bruits noted. Extremities: 2+ radial pulses bilaterally. 2+ posterior tibialis pulses bilaterally. Trace bilateral lower extremity edema. No cyanosis. Results & Data Vital Signs (Past 12 Hours) Vital Signs Temp Pulse Pulse Pulse Resp BP Pulse Ox 05/07/25 07:45 47 L 16 121/88 96 05/07/25 07:15 112 H 16 138/101 H 93 05/07/25 06:10 133/98 05/07/25 05:45 109 H 26 H 109/67 97 05/07/25 02:23 36.3 C L 105 H 20 129/93 95 05/06/25 22:54 37.9 C H 55 L 18 109/61 95 05/06/25 22:00 99 H 05/06/25 21:32 O2 Del Method 05/07/25 07:45 Room Air 05/07/25 07:15 Room Air 05/07/25 06:10 05/07/25 05:45 Room Air 05/07/25 02:23 Room Air 05/06/25 22:54 Room Air 05/06/25 22:00 05/06/25 21:32 Room Air Laboratory Results Laboratory Results - last 24 hr 05/07/25 05/07/25 05:56 06:02 Sodium 138 Potassium 4.5 Chloride 101 Carbon Dioxide 31 Anion Gap 6 BUN 25 H Creatinine 1.29 H Est Cr Clr Drug Dosing 27.8 eGFR 39.67 BUN/Creatinine Ratio 19.4 Glucose 103 H Calcium 8.3 L Magnesium 2.4 Troponin I High Sens 6.9 B-Natriuretic Peptide 298 H Diagnostic Findings Labs reviewed and notable for normal potassium and stable renal function. Telemetry personally reviewed: After cardioversion, sinus bradycardia in the 50s. ECG personally reviewed 05/07/2025 at 8 AM: Sinus bradycardia with PACs. 49 bpm. Nonspecific T wave abnormality. Medications Administered Current Inpatient Medications Acetaminophen (Acetaminophen 325 Mg Tab) 650 mg PO Q4H PRN PRN Reason: Pain or Fever Stop: 06/03/25 20:46 Al Hydrox/Mg Hydrox/Simethicone (Aluminum/Magnesium Susp 30 Ml Udc) 15 ml PO Q4H PRN PRN Reason: Dyspepsia Stop: 06/03/25 20:46 Apixaban (Apixaban 5 Mg Tablet) 5 mg PO BID [facility] Stop: 06/03/25 20:59 Last Admin: 05/06/25 20:37 Dose: 5 mg Escitalopram Oxalate (Escitalopram Oxalate 20 Mg Tab) 20 mg PO DAILY [facility] Stop: 06/05/25 08:59 Last Admin: 05/06/25 09:32 Dose: 20 mg Guaifenesin (Guaifenesin 600 Mg Tabcr) 1,200 mg PO Q12 [facility] Stop: 06/03/25 20:59 Last Admin: 05/06/25 20:36 Dose: 1,200 mg Magnesium Hydroxide (Magnesium Hydroxide Susp 30 Ml Udc) 30 ml PO Q12H PRN PRN Reason: Constipation Stop: 06/03/25 20:46 Melatonin (Melatonin 3 Mg Tab) 3 mg PO HS PRN PRN Reason: Sleep Stop: 06/03/25 20:46 Metoprolol Succinate (Metoprolol Succ 50mg Ext Rel Tab) 50 mg PO BID [facility] Stop: 06/04/25 20:59 Last Admin: 05/06/25 20:37 Dose: 50 mg Ondansetron HCl (Ondansetron Inj 2 Mg/Ml 2 Ml Vial) 4 mg IV Q6H PRN PRN Reason: Nausea Stop: 06/03/25 20:46 Polyethylene Glycol (Polyethylene (Miralax) 17 Gm Pack) 17 gm PO DAILY PRN PRN Reason: Constipation Stop: 06/03/25 20:46 Potassium Chloride (Potassium Chloride Crtab 20 Meq Tabcr) 20 meq PO QAM [facility] Stop: 06/03/25 20:46 Last Admin: 05/06/25 09:28 Dose: 20 meq PG Care Time/CCT Total # of Minutes Spent Total Time Spent with Patient: Total time spent is greater than 50% in coordination of care (as documented) at patient's floor/unit and/or counseling patient: Coding Level of Care Code 69990 SUB INP/OBS CARE 3/50MIN Diagnoses Atrial fibrillation with rapid ventricular response I48.91 Persistent atrial fibrillation I48.19 SOB (shortness of breath) R06.02
--- NOTE | 2025-05-07 08:31 | Anesthesiology Progress Note ---
Date of Service May 07, 2025 Anesthesia Post Procedure Vital Signs Vital Signs: Temp Pulse Pulse Pulse Resp BP Pulse Ox 05/07/25 08:00 58 L 18 96/58 L 94 05/07/25 07:45 47 L 16 121/88 96 05/07/25 07:15 112 H 16 138/101 H 93 05/07/25 06:10 133/98 05/07/25 05:45 109 H 26 H 109/67 97 05/07/25 02:23 36.3 C L 105 H 20 129/93 95 05/06/25 22:54 37.9 C H 55 L 18 109/61 95 05/06/25 22:00 99 H 05/06/25 21:32 05/06/25 19:31 36.6 C 99 H 18 100/61 95 05/06/25 16:06 108 H 05/06/25 15:28 36.6 C 86 19 101/70 95 05/06/25 11:41 36.3 C L 114 H 18 124/84 96 O2 Del Method 05/07/25 08:00 Room Air 05/07/25 07:45 Room Air 05/07/25 07:15 Room Air 05/07/25 06:10 05/07/25 05:45 Room Air 05/07/25 02:23 Room Air 05/06/25 22:54 Room Air 05/06/25 22:00 05/06/25 21:32 Room Air 05/06/25 19:31 Room Air 05/06/25 16:06 05/06/25 15:28 Room Air 05/06/25 11:41 Room Air Transfer of Care Handoff Completed per policy Notes Mental Status: alert / awake / arousable and participated in evaluation Nausea / Vomiting: adequately controlled Pain: adequately controlled Airway Patency, RR, SpO2: stable & adequate BP & HR: stable & adequate Hydration State: stable & adequate Anesthetic Complications: no major complications apparent and Pt Satisfied with anesthetic care
--- NOTE | 2025-05-07 17:21 | Hospitalist Progress Note ---
Date of Service May 07, 2025 Assessment & Plan (1) Atrial fibrillation with rapid ventricular response: (2) Acute on chronic diastolic (congestive) heart failure: (3) CARMEN (acute kidney injury): (4) Mucus plugging of bronchi: (5) Atrial fibrillation: (6) Chronic kidney disease, stage 3: Plan Bettye is a pleasant 89-year-old woman with past medical history of recently diagnosed Afib, CKD stage III, hyperlipidemia, and prediabetes. She was recently admitted to the hospital on 04/07 - 04/10 when she was diagnosed with new onset A-fib with RVR and started on metoprolol and Eliquis. She was again admitted 04/14-04/15 with entero-/rhinovirus and was in A-fib RVR again. She was excessively tired on metoprolol 150 mg bid so the dose was reduced to 100 mg bid on 05/01 by cardiology. She comes back in with dyspnea and afib with RVR. Reviewed last TTE 04/08 she had normal LV function EF 55-60% no rwma's, mild MR and mild TR, mild conc LVH, RV not well seen and PA not visualized, not volume overloaded at the time of that study CTA chest in ED was negative for PE but did show mucus plugging, pulmonary edema and small pleural effusions, and signs of pulmonary hypertension with dilated PA. #A-fib with RVR - recent reduction in metoprolol dose for excessive tiredness on 150 bid. Hypotension after metoprolol IV 5 mg x 2 (also happened last admission) #Acute on chronic diastolic heart failure -diuresed With several doses of IV Lasix this admission, required 20 mg IV early this morning for acute dyspnea which did improve symptoms - rate was controlled on amiodarone drip, metoprolol continued but reduced and stopped evening of 05/06 -continue apixaban - has been consistently anticoagulated for a month - underwent cardioversion a.m. of 05/07 it was successful in converting her to sinus, has been quite bradycardic amiodarone held and metoprolol stopped, had 1 brief run of A-fib that spontaneously converted today, discussed with Dr. Ace - resume her usual oral Lasix, referral to CHF clinic #CARMEN on CKD-3 - Cr up to 1.5. Possibly prerenal / hypoperfusion from AF with RVR. Appears volume overloaded -treat acute cardiac conditions, avoid nephrotoxins, monitor UOP and Cr. 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 Resultant of recent rhinovirus bronchitis -saline nebs stopped since she had bronchospasm, acapella, guaifenesin, mobility #Depression/anxietycontinue escitalopram but increase to 20 mg at her request - has had low mood related to all the recent medical problems. Follow EKG for QTC if amiodarone to be continued po #Hyperlipidemiadiet controlled, does not tolerate statin therapy #Vitamin D deficiencycontinue cholecalciferol 25 mcg daily VTE PPx: on apixaban updated her in the room 05/07 Admission and Anticipated Discharge Date Admission Date: May 04, 2025 Subjective The patient is an 89-year-old woman with rapid atrial fibrillation. She underwent successful cardioversion this morning and is now in sinus rhythm, bradycardic. Plan to hold beta yousif and continue amiodarone to maintain sinus rhythm. Received 20 mg IV Lasix at 6:30 AM; last metoprolol dose was last night. Brief crisis early this morning with shortness of breath and chest heaviness resolved after 20 mg IV Lasix. Condition improved significantly post- cardioversion. Able to get out of bed and use the restroom without shortness of breath or chest heaviness. she says she feels a lot better Physical Exam Physical Exam: General Appearance: Normal. Vital signs: Reviewed past 24h vital signs in EMR, unremarkable. HEENT: Within normal limits. Respiratory: Improved bilateral crackles, mostly at bases. Cardiovascular: Regular heart rate, no murmurs, rubs, or gallops. Gastrointestinal: Soft, nontender, nondistended. Extremities: Warm and well perfused. Skin: Warm and dry, no rash. Neurological: AOx4, normal speech and mentation, clark x 4. Psychiatric: Normal. Results & Data Results & Data Vital Signs (Past 12 Hours) Vital Signs Temp Pulse Pulse Pulse Resp BP Pulse Ox 05/07/25 14:54 36.8 C 55 L 18 117/80 97 05/07/25 14:20 54 L 05/07/25 11:22 36.5 C 53 L 18 96/59 L 95 05/07/25 09:47 67 05/07/25 08:49 36.6 C 62 18 107/58 L 98 05/07/25 08:28 36.3 C L 66 18 109/65 96 05/07/25 08:00 58 L 18 96/58 L 94 05/07/25 07:45 47 L 16 121/88 96 05/07/25 07:15 112 H 16 138/101 H 93 05/07/25 06:10 133/98 05/07/25 05:45 109 H 26 H 109/67 97 O2 Del Method 05/07/25 14:54 Room Air 05/07/25 14:20 05/07/25 11:22 Room Air 05/07/25 09:47 05/07/25 08:49 Room Air 05/07/25 08:28 Room Air 05/07/25 08:00 Room Air 05/07/25 07:45 Room Air 05/07/25 07:15 Room Air 05/07/25 06:10 05/07/25 05:45 Room Air Diagnostic Findings - Labs: - Sodium: 138 - Potassium: 4.5 - BUN: 25 - Creatinine: 1.29 - BNP: 298 (05/07/2025) - Troponin: 6.9 (05/07/2025) - Imaging: - I personally reviewed the chest x-ray film: Chest x-ray (05/07/2025): Bibasilar infiltrates or atelectasis, possible small pleural effusions, unchanged - Diagnostic Testing: -I personally reviewed the EKG: EKG (05/07/2025): Sinus bradycardia, nonspecific ST changes, diffuse T wave flattening inversions, QTc 137 PG Care Time/CCT Total # of Minutes Spent Total Time Spent with Patient: Total time spent is greater than 50% in coordination of care (as documented) at patient's floor/unit and/or counseling patient: Coding Level of Care Code 56015 SUB INP/OBS CARE 3/50MIN Diagnoses Atrial fibrillation with rapid ventricular response I48.91 Acute on chronic diastolic (congestive) heart failure I50.33 CARMEN (acute kidney injury) N17.9 Mucus plugging of bronchi T17.500A Atrial fibrillation I48.91 Stage 3a chronic kidney disease N18.31 Chronic kidney disease stage 3 subtype: stage 3a (GFR 45-59) (6) Chronic kidney disease, stage 3 Chronic kidney disease stage 3 subtype: stage 3a (GFR 45-59) Qualified Code(s): N18.31 - Chronic kidney disease, stage 3a
[2025-05-08 06:40] LABS: Anion Gap 4.0 (3-11); Blood Urea Nitrogen 28.0 mg/dl (6-23); Calcium 8.3 mg/dl (8.6-10.3); Carbon Dioxide 33.0 mmol/L (21-32); Chloride 102.0 mmol/L (98-107); Creatinine Clr Calc Pharmacy 25.1 ml/min; Glucose 93.0 mg/dl (70-99(Fasting)); Magnesium 2.4 mg/dl (1.7-2.4); Potassium 5.3 mmol/L (3.5-5.1); Sodium 139.0 mmol/L (136-145)
[2025-05-08 07:30] VITALS: RESP 18; TEMP 97.5
[2025-05-08] MEDS: FUROSEMIDE 20 MG TAB PO SCH (09:09)
[2025-05-08 11:50] VITALS: BP 131/87; O2SAT 97
--- NOTE | 2025-05-08 13:54 | Cardiology Progress Note ---
Date of Service May 08, 2025 Assessment & Plan (1) Atrial fibrillation with rapid ventricular response: (2) Persistent atrial fibrillation: (3) SOB (shortness of breath): Plan ASSESSMENT/PLAN: 1. Persistent atrial fibrillation s/p DC CV (05/07/25): Symptomatic with faster heart rates and A-fib remained with RVR. Despite rapid titration of beta- yousif within the past month, she continued to have elevated heart rates with symptoms and with more aggressive therapy, specifically IV therapy, issues with hypotension. Remains in sinus rhythm since cardioversion on 05/07/2025 and heart rate has improved after discontinuation of beta-yousif. Start amiodarone 200 mg p.o. daily. Typically would load but given concerns for bradycardia, lower dose for now. Beta-yousif has been discontinued due to bradycardia while in sinus. Continue anticoagulation for stroke risk reduction. Monitor CBC and renal function. Monitor transaminase levels and TSH while on amiodarone. Periodic ECG. 2. Shortness of breath: Seems to correlate with A-fib with RVR. She does not appear to be significantly hypervolemic and lab slightly azotemic with diuretic from yesterday. She has received 40 mg of IV Lasix on 05/05/2025 and another 20 mg on 05/07/2025. Monitor I's and O's while hospitalized. Monitor renal function and electrolytes. 3. CKD: Monitor renal function closely. 4. Hyperkalemia: Potassium supplementation has been discontinued/held by hospitalist service. Close monitoring of electrolytes recommended. 5. Disposition: When okay from electrolyte standpoint, can be discharged home from cardiology perspective on amiodarone 200 mg daily. Patient care c ommunicated with primary hospitalist, Dr. Lees. On discharge, follow-up with her primary chair caner, Dr. French. Admission and Anticipated Discharge Date Admission Date: May 04, 2025 Subjective Patient was seen this afternoon. She denies chest pain, shortness of breath, syncope, near syncope, palpitations. She would like to go home. She was unaccompanied. Physical Exam Physical Exam: Gen.: No acute distress. Alert. Oriented. HEENT: Anicteric sclera. Neck: No JVD. Cardiac: Regular in the 60s. Normal S1-S2. No murmurs, rubs, or gallops. Pulmonary: Very faint crackles at the bases, but otherwise clear to auscultation bilaterally. Abdomen: Soft, nontender, nondistended, with normoactive bowel sounds. No bruits noted. Extremities: 2+ radial pulses bilaterally. 2+ posterior tibialis pulses bilaterally. Trace bilateral lower extremity edema. No cyanosis. Results & Data Vital Signs (Past 12 Hours) Vital Signs Temp Pulse Pulse Resp BP Pulse Ox O2 Del Method 05/08/25 11:49 36.4 C L 69 18 131/87 97 Room Air 05/08/25 10:59 54 L 05/08/25 07:40 Room Air 05/08/25 07:29 36.4 C L 67 18 131/69 95 Room Air 05/08/25 03:00 36.3 C L 60 21 138/79 97 Room Air Intake & Output 05/06/25 05/07/25 05/08/25 05/09/25 06:59 06:59 06:59 06:59 Intake Total 998.173 / 512.080 1253.915 / 3975.409 7486 / 1630 570 / 570 Output Total Balance 998.173 / 610.918 0010.915 / 5562.744 3317 / 1629 569 / 569 Weight 168 lb 8 oz 170 lb 4.8 oz 172 lb 2.896 oz 172 lb 2.896 oz Laboratory Results Laboratory Results - last 24 hr 05/08/25 05:23 Sodium 139 Potassium 5.3 H Chloride 102 Carbon Dioxide 33 H Anion Gap 4 BUN 28 H Creatinine 1.44 H Est Cr Clr Drug Dosing 25.1 eGFR 34.77 BUN/Creatinine Ratio 19.4 Glucose 93 Calcium 8.3 L Magnesium 2.4 Diagnostic Findings Telemetry personally reviewed: Today, sinus rhythm in the 60s. Labs reviewed and notable for very mild hyperkalemia, mildly abnormal renal function, slightly worse than yesterday. Medications Administered Current Inpatient Medications Acetaminophen (Acetaminophen 325 Mg Tab) 650 mg PO Q4H PRN PRN Reason: Pain or Fever Stop: 06/03/25 20:46 Al Hydrox/Mg Hydrox/Simethicone (Aluminum/Magnesium Susp 30 Ml Udc) 15 ml PO Q4H PRN PRN Reason: Dyspepsia Stop: 06/03/25 20:46 Apixaban (Apixaban 5 Mg Tablet) 5 mg PO BID [facility] Stop: 06/03/25 20:59 Last Admin: 05/08/25 09:09 Dose: 5 mg Escitalopram Oxalate (Escitalopram Oxalate 20 Mg Tab) 20 mg PO DAILY [facility] Stop: 06/05/25 08:59 Last Admin: 05/08/25 09:10 Dose: 20 mg Furosemide (Furosemide 20 Mg Tab) 20 mg PO QAM [facility] Stop: 06/07/25 08:59 Last Admin: 05/08/25 09:09 Dose: 20 mg Guaifenesin (Guaifenesin 600 Mg Tabcr) 1,200 mg PO Q12 [facility] Stop: 06/03/25 20:59 Last Admin: 05/08/25 09:09 Dose: 1,200 mg Magnesium Hydroxide (Magnesium Hydroxide Susp 30 Ml Udc) 30 ml PO Q12H PRN PRN Reason: Constipation Stop: 06/03/25 20:46 Melatonin (Melatonin 3 Mg Tab) 3 mg PO HS PRN PRN Reason: Sleep Stop: 06/03/25 20:46 Metoprolol Succinate (Metoprolol Succ 50mg Ext Rel Tab) 50 mg PO BID [facility] Stop: 06/04/25 20:59 Last Admin: 05/06/25 20:37 Dose: 50 mg Ondansetron HCl (Ondansetron Inj 2 Mg/Ml 2 Ml Vial) 4 mg IV Q6H PRN PRN Reason: Nausea Stop: 06/03/25 20:46 Polyethylene Glycol (Polyethylene (Miralax) 17 Gm Pack) 17 gm PO DAILY PRN PRN Reason: Constipation Stop: 06/03/25 20:46 Potassium Chloride (Potassium Chloride Crtab 20 Meq Tabcr) 20 meq PO QAM [facility] Stop: 06/03/25 20:46 Last Admin: 05/08/25 09:09 Dose: Not Given PG Care Time/CCT Total # of Minutes Spent Total Time Spent with Patient: Total time spent is greater than 50% in coordination of care (as documented) at patient's floor/unit and/or counseling patient: Coding Level of Care Code 27611 SUB INP/OBS CARE 3/50MIN Diagnoses Atrial fibrillation with rapid ventricular response I48.91 Persistent atrial fibrillation I48.19 SOB (shortness of breath) R06.02
[2025-05-08] MEDS: AMIODARONE 200 MG TAB PO SCH (14:15)
--- NOTE | 2025-05-08 15:13 | Discharge Summary ---
Discharge Summary Date of Service May 08, 2025 Principal Dx & Hospital Course #1 = Principal Diagnosis (1) Atrial fibrillation with rapid ventricular response: (2) Acute on chronic diastolic (congestive) heart failure: (3) CARMEN (acute kidney injury): (4) Mucus plugging of bronchi: (5) Atrial fibrillation: (6) Chronic kidney disease, stage 3: Luis Wen is a pleasant 89-year-old woman with past medical history of recently diagnosed Afib, CKD stage III, hyperlipidemia, and prediabetes. She was recently admitted to the hospital on 04/07 - 04/10 when she was diagnosed with new onset A-fib with RVR and started on metoprolol and Eliquis. She was again admitted 04/14-04/15 with entero-/rhinovirus and was in A-fib RVR again. She was excessively tired on metoprolol 150 mg bid so the dose was reduced to 100 mg bid on 05/01 by cardiology. She comes back in with dyspnea and afib with RVR. Reviewed last TTE 04/08 she had normal LV function EF 55-60% no rwma's, mild MR and mild TR, mild conc LVH, RV not well seen and PA not visualized, not volume overloaded at the time of that study CTA chest in ED was negative for PE but did show mucus plugging, pulmonary edema and small pleural effusions, and signs of pulmonary hypertension with dilated PA. #A-fib with RVR - recent reduction in metoprolol dose for excessive tiredness on 150 bid. Hypotension after metoprolol IV 5 mg x 2 (also happened last admission) #Acute on chronic diastolic heart failure -diuresed With several doses of IV Lasix this admission, required 20 mg IV early this morning for acute dyspnea which did improve symptoms - rate was controlled on amiodarone drip, metoprolol continued but reduced and stopped evening of 05/06 -continue apixaban - has been consistently anticoagulated for a month - underwent cardioversion a.m. of 05/07 it was successful in converting her to sinus, initially quite bradycardic amiodarone held and metoprolol stopped, heart rate now improved, discharged on low dose amiodarone 200 mg daily with no B- yousif. Discussed with Dr. Ace - resumed her usual oral Lasix, referral to CHF clinic, has cardiology appt first week in May - felt much better after cardioversion, with respect to fatigue and dyspnea on exertion #CARMEN on CKD-3 - Cr up to 1.5. Possibly prerenal / hypoperfusion from AF with RVR. Was initially volume overloaded -treat acute cardiac conditions, avoid nephrotoxins, monitor UOP and Cr. 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 Resultant of recent rhinovirus bronchitis -improved - treated with acapella, guaifenesin, mobility. Had bronchospasm with saline neb. #Depression/anxietycontinue escitalopram but increase to 20 mg at her request - has had low mood related to all the recent medical problems. Follow EKG for QTC in future #Hyperlipidemiadiet controlled, does not tolerate statin therapy #Vitamin D deficiencycontinue cholecalciferol 25 mcg daily - Laboratory Studies 05/08: - Sodium: 139 - Potassium: 5.3 - Creatinine: 1.44 (increased from 1.29) Notes For Next Care Provider Cardioverted for Afib Stopped metoprolol Amiodarone 200 mg daily Diuresed, resumed usual home lasix dose, anticipate need for adjustment if continues in sinus rhythm Admission HPI Per Admitting Provider 89 y/o recently diagnosed afib late fall she had coronavirus infection. recovered from that then had new onset afib. readmitted shortly after with rhinovirus and rapid afib. 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 Awoke early this 3 AM with shortness of breath and rapid heart beat. Has had ongoing dyspnea these weeks. Is no longer coughing or wheezing from viral infections. Leg edema did improve after starting lasix 20 mg daily but persists and she doesn't notice much increase in UOP after dose. Didn't take dose today because she ran out of potassium. In ED in rapid afib rates from 120-150. Hypotension after metoprolol 5 mg IV x 2 doses with no improvement in rate. She feels some chest heaviness but no pain. Discharge Exam General Appearance: Normal. Vital signs: Reviewed past 24h vital signs in EMR, unremarkable. HEENT: Within normal limits. Respiratory: Lungs clear to auscultation bilaterally, laterally, anteriorly, and posteriorly. Right basilar crackles quarter of the way up, left basilar crackles more than senior living up, unchanged from admission. Cardiovascular: Bradycardic, regular heart rhythm. No murmurs, rubs, or gallops. Gastrointestinal: Abdomen soft, nontender, nondistended. Extremities: Lower extremities warm, well perfused, 1+ edema. Skin: Skin warm, dry, no rash. Skin looser and less firm than on admission. Neurological: Awake, alert, oriented x4. Psychiatric: Normal. 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 French as scheduled. 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 not need it detention if you stay in normal rhythm Follow up with primary care for depression and other issues It was a pleasure taking care of you in the hospital, Leela Lees MD Pending Studies at Discharge: No Stand-Alone Forms: My [facility] [employer], Smoking Cessation Medications and DC Order Prescriptions: New amiodarone 200 mg Tablet 200 mg PO QAM Qty: 30 0RF escitalopram oxalate 20 mg Tablet 20 mg PO DAILY Qty: 30 0RF Continued potassium chloride 10 mEq tablet extended release 10 meq PO DAILY Qty: 30 0RF Rx Instructions: "RAN OUT, 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" furosemide 20 mg tablet 20 mg PO DAILY Qty: 30 0RF Rx Instructions: "RAN OUT, 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" cholecalciferol (vitamin D3) 1,000 unit capsule 1,000 units PO DAILY calcium carbonate [Calcium 500] 500 mg calcium (1,250 mg) tablet,chewable 500 mg PO DAILY albuterol sulfate 90 mcg/actuation HFA aerosol inhaler 1 inh inhalation QID PRN (Reason: coug) Qty: 8.5 2RF PreserVision AREDS 4,296 mcg-226 mg-90 mg capsule 1 cap PO DAILY Eliquis 5 mg Tablet 5 mg PO BID Qty: 60 0RF cyanocobalamin (vitamin B-12) [Vitamin B-12] 1,000 mcg Tablet 1,000 mcg PO DAILY Discontinued escitalopram oxalate 10 mg tablet 10 mg PO DAILY Qty: 90 3RF metoprolol tartrate 100 mg tablet 100 mg PO BID Qty: 180 3RF Discharge Orders: Discharge Order- CHF (Routine); Ordered 05/08/25 Ordered By: Leela Dyer/Other Patient Handouts: AFib Admission Data Admit Date/Time: 05/04/25 19:03 Attending Provider: Leela Lees Admit Provider: Leela Lees Primary Care Provider: Khadijah Alexander Other Providers: Leela Lees; Serenity Ramsey; Darrin Ace; Esthela Pond; Amanda Meeks; Ewa May; Brittany Quezada; Imtiaz Panda; Paddy Perez; Elias Benites; Tarik Caballero; Serenity Howell; Jose Vicente; Jerel Shrestha; Ollie Cueva; Kecia Tijerina; Stone Edmonds; Carol Edmonds; Selvin Shah; Federica Maldonado; Marco Mckay; Estrella Hernandez; Marysol Mcwilliams; Alon Mckeon; Mitzi Russo; Michelle Washington; Doretha Maravilla; Veda Moreno; Bashir Moreno V; Vasquez Llamas; Amanda Wang; Drake Altman; Yanci Moura; Bashir Patten; Barrie Tijerina; Jonathan Pyle; Radha Meyer; Shiloh Art; Bashir Gomez; Tong Fabian; Kiera Machuca; Ronny Sams; Susy Valera; Chapis Mcmanus; Agustín Cook; Davis Mariscal; Ella Champion; Elias Patton; Carola Saavedra; Becka Dumont; Logan Albert; Imtiaz Magana Jr; Shaina Cha; Marina Bradley; Patricia Valdes; Alon Jaimes; Randall Reeder; Marina Irizarry; Miguel Jin; Bigg Montenegro; Eduardo Morales; Jose L Joy; Shauna Knutson; Amber Ann; Batsheva Bowles; Jenae Blake; Fabiola Stevenson; Jonathan Mcmillan Jr; Kelsy Curtis; Mitzi Palafox; Francisco Rodriguez; Tri Laughlin; Cleo Kaminski; Serenity Rodríguez; Elva Tijerina; Alpesh Hernandez Other Interventions: Discharge Summary Assessment (RN) Last Done: 05/08/25 15:04 Hospital Stay Data Consultations 05/04/25 18:15 ED Decision to Admit Stat 05/04/25 20:47 [facility] Referral Routine 05/05/25 09:22 Consult Cardiology Routine 05/06/25 12:51 Consult Anesthesiology Routine Procedures Performed Operation Date: 05/07/25 07:30 Actual Procedures p Cardioversion - Darrin Ace MD Diagnostic Imagining Performed 05/04/25 15:23 CT angio chest PE protocol Stat Pending Results Patient Have Any Pending Studies at Discharge: No Discharge Instructions Given to Patient (Per Discharging Provider) You were treated for rapid atrial fibrillation You had cardioversion procedure that put you back into normal rhythm STOP: metoprolol NEW: amiodarone 200 mg daily Continue your lasix and potassium supplement I increased your lexapro to 20 mg daily to help your mood Follow up with Dr. French as scheduled. 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 Follow up with primary care for depression and other issues It was a pleasure taking care of you in the hospital, Leela Lees MD Total Time Total Time Spent Total Time Spent (In Minutes): I personally spent: 40 minutes today on clinical care activities including: reviewing chart notes and vital signs reviewing labs discussion with risk and insurance consultant(s) examining and counseling the patient writing orders writing prescriptions, discharge instructions documentation Coding Level of Care Code 98582 INP/OBS DISCH >30 MIN Diagnoses Atrial fibrillation with rapid ventricular response I48.91 Acute on chronic diastolic (congestive) heart failure I50.33 CARMEN (acute kidney injury) N17.9 Mucus plugging of bronchi T17.500A Atrial fibrillation I48.91 Stage 3a chronic kidney disease N18.31 Chronic kidney disease stage 3 subtype: stage 3a (GFR 45-59)
[2025-05-08 15:23] VITALS: PULSE 65
== END 2025-05-08 15:51 | disposition home or self-care (01) | DRG 308 ==
LOC: ED 13:28 → 4W 19:03